=== PATIENT | male | born 1940 | race Caucasian/White ===

== ENCOUNTER 2018-02-07 01:49 | Day surgery (SDC) | payer MEDICARE, OTHER ==
[2018-02-01 11:48] LABS: BASOPHIL % 0.6 % (0.0-0.2); EOSINOPHIL # 0.3 10^3/uL (0.0-0.2); EOSINOPHIL % 3.9 % (0.0-5.0); HEMOGLOBIN 12.9 g/dL (13.9-16.3); LYMPHOCYTES # 2.1 10^3/uL (1.0-4.8); MEAN CELL HGB 32.8 pg (26-34); MEAN CELL HGB CONCENTRATION 32.5 g/dL (33-37); MEAN PLATELET VOLUME 10.8 fL (7.8-11.0); MONOCYTES # 0.7 10^3/uL (0.3-0.8); MONOCYTES % 10.6 % (5.0-12.0); NEUTROPHIL # 3.7 10^3/uL (1.8-7.7); NEUTROPHILS % 53.8 % (41.0-85.0); RED CELL DISTRIBUTION WIDTH 14.2 % (11.5-14.5); WHITE BLOOD CELL 6.9 10^3/uL (4.5-11.0)
[2018-02-01 12:03] LABS: CALCIUM 9.2 mg/dL (8.4-10.5); CARBON DIOXIDE 23.6 mmol/L (20.0-32)
[~2018-02-07] VITALS: Ht 188 cm; Wt 118.4 kg
[~2018-02-07 01:49] MED LIST: ALLO300T PO; ASPI81TA61 PO; BISO5TAB2 PO; CEFP200T PO; DILT120T3 PO; DOCU100T6 PO; FENO160T PO; FINA5TAB4 PO; FLUC100T4 PO; FLUT9.9S NS; GABA100C7 PO; GLIP5TAB PO; HYDR25TA9 PO; LOSA50TA6 PO; MAGN400C PO; METF500T5 PO; NAPR220T70 PO; NS 1000ML 1,000 ML IV SCH; OMEG500C PO; POTA10CA PO; PRAV80TA2 PO; PRIM250T PO; PSYL0.527 PO; SALI10002 MM; SENN1TAB68 PO; TAMS0.4C2 PO; TOPI50TA8 PO; [UNRECOGNIZED DRUG - CODE] PO
[2018-02-07] MEDS ORDERED: NS 1000ML 1,000 ML ONE (05:32)
[2018-02-07] MEDS ORDERED: LEVAQUIN 100 ML IV ONE (05:32)
[2018-02-07] MEDS ORDERED: DECADRON ONE (06:38)
[2018-02-07] MEDS ORDERED: ZOFRAN ONE (06:38)
[2018-02-07] MEDS ORDERED: SUBLIMAZE ONE (06:38)
[2018-02-07] MEDS ORDERED: DIPRIVAN IV ONE (06:38)
[2018-02-07] MEDS ORDERED: LIDOCAINE 2% VIAL ONE (06:39)
[2018-02-07 06:51] VITALS: BP 179/86
[2018-02-07] MEDS ORDERED: NS 3000ML IRR IR ONE (07:28)
[2018-02-07] MEDS ORDERED: SODIUM CHLORIDE IR ONE (07:28)
[2018-02-07 08:08] VITALS: BP 153/82
[2018-02-07 08:23] VITALS: BP 154/71
[2018-02-07] MEDS ORDERED: ZOFRAN IV PRN (08:30)
[2018-02-07] MEDS ORDERED: NORCO 7.5MG PO PRN (08:30)
[2018-02-07] MEDS ORDERED: LACTATED RINGERS 1,000 ML IV SCH (08:30)
[2018-02-07] MEDS ORDERED: SUBLIMAZE IV PRN (08:30)
[2018-02-07] MEDS ORDERED: TAMS0.4C2 PO (08:35)
[2018-02-07] MEDS ORDERED: CIPR500T3 PO (08:35)
[2018-02-07 08:38] VITALS: BP 159/98
[2018-02-07 08:54] VITALS: BP 161/88
--- NOTE | 2018-02-07 09:20 | OPH ---
DATE OF SURGERY: 02/07/2018 PREOPERATIVE DIAGNOSES: Hematuria, prostatic hyperplasia. FINAL DIAGNOSIS: Obstructive prostatic hyperplasia. PROCEDURES: Cystoscopy with urethral dilatation. DESCRIPTION OF PROCEDURE: The patient was brought to the cystoscopy room and was put in supine position on the cystoscopy table. After the patient was given an IV sedation, the patient was placed in the lithotomy position. The genitalia was then prepped and draped aseptically in the usual manner. With the use of 17-Mauritanian cystoscope with the 30-degree angle lens, the posterior urethra was visualized. Verumontanum was identified. There was a marked obstructive prostatic hyperplasia, which was hemorrhagic the bladder was then inspected with the right angle lens and there was no evidence of tumor, no calculi, no ulcerations seen. After this was done, the bladder was emptied with fluid. Instrument was removed and a ureteral dilatation with curved sounds up to 24 Mauritanian was performed. After that, the patient was then awakened, was transferred to the recovery room in stable condition. Procedure was terminated. Milind Randle MD DR: FLETCHER/tana JOB# [id number]
[2018-02-07] MEDS ORDERED: TYLENOL PO STA (10:06)
== END 2018-02-07 09:02 | disposition home or self-care (01) | DRG 726 ==
LOC: SURG 01:49
PROVIDERS: ATTEND Urology
DX: N40.1 Benign prostatic hyperplasia with lower urinary tract symptoms (principal); N13.8 Other obstructive and reflux uropathy; E11.9 Type 2 diabetes mellitus without complications; I10 Essential (primary) hypertension; E78.00 Pure hypercholesterolemia, unspecified; G20 Parkinson's disease; I25.10 Atherosclerotic heart disease of native coronary artery without angina pectoris; E66.9 Obesity, unspecified; Z98.890 Other specified postprocedural states; Z79.899 Other long term (current) drug therapy; Z68.33 Body mass index [BMI] 33.0-33.9, adult; Z87.891 Personal history of nicotine dependence
CPT/HCPCS: 36415; 52281; 80048; 82948 ×2; 85025; 85610; 85730; J1100; J1956; J2001; J2405; J3010; J3490; J7030 ×3

== ENCOUNTER 2018-02-07 14:00 | Inpatient (IN) | payer MEDICARE, OTHER ==
[~2018-02-07] VITALS: Ht 188 cm; Wt 118.4 kg
[~2018-02-07 14:00] MED LIST changes: +CIPR500T3 PO; -NS 1000ML 1,000 ML IV SCH
[2018-02-15] MEDS ORDERED: NS 1000ML 1,000 ML IV SCH (09:00)
[2018-03-27 12:27] LABS: BASOPHIL % 0.6 % (0.0-0.2); EOSINOPHIL # 0.2 10^3/uL (0.0-0.2); EOSINOPHIL % 3.3 % (0.0-5.0); HEMOGLOBIN 13.1 g/dL (13.9-16.3); LYMPHOCYTES # 1.9 10^3/uL (1.0-4.8); MEAN CELL HGB 32.7 pg (26-34); MEAN CELL HGB CONCENTRATION 31.6 g/dL (33-37); MEAN CORP VOLUME 103.5 fL (78-100); MEAN PLATELET VOLUME 11.7 fL (7.8-11.0); MONOCYTES # 0.6 10^3/uL (0.3-0.8); MONOCYTES % 8.3 % (5.0-12.0); NEUTROPHIL # 3.9 10^3/uL (1.8-7.7); NEUTROPHILS % 59.8 % (41.0-85.0); RED CELL DISTRIBUTION WIDTH 14.9 % (11.5-14.5); WHITE BLOOD CELL 6.6 10^3/uL (4.5-11.0)
[2018-03-27 12:42] LABS: CALCIUM 9.3 mg/dL (8.4-10.5); CARBON DIOXIDE 23.3 mmol/L (20.0-32)
[2018-03-28] VITALS (9 sets, daily range): BP systolic 121–164; BP diastolic 61–84
[2018-03-28] MEDS ORDERED: LEVAQUIN 100 ML IV ONE (05:14)
[2018-03-28] MEDS ORDERED: DECADRON ONE (06:55)
[2018-03-28] MEDS ORDERED: VERSED ONE (06:56)
[2018-03-28] MEDS ORDERED: ZOFRAN ONE (06:56)
[2018-03-28] MEDS ORDERED: KETAMINE HCL-Non-Preferred ONE (06:57)
[2018-03-28] MEDS ORDERED: SUBLIMAZE ONE (06:58)
[2018-03-28] MEDS ORDERED: LIDOCAINE 2% VIAL ONE (06:58)
[2018-03-28] MEDS ORDERED: DIPRIVAN IV ONE (06:58)
[2018-03-28] MEDS: NS 1000ML 1,000 ML IV SCH (07:18)
[2018-03-28] MEDS ORDERED: AMINOACETIC ACID IR ONE ×3 (07:32→08:52)
[2018-03-28] MEDS ORDERED: SODIUM CHLORIDE IR ONE ×2 (07:32→10:01)
[2018-03-28] MEDS ORDERED: DEMEROL IV PRN (09:30)
[2018-03-28] MEDS ORDERED: ULTRAM PO PRN (09:30)
[2018-03-28] MEDS ORDERED: ZOFRAN IV PRN (09:30)
[2018-03-28] MEDS ORDERED: PHENERGAN IV PRN ×2 (09:30)
[2018-03-28] MEDS ORDERED: SUBLIMAZE IV PRN (09:30)
--- NOTE | 2018-03-28 09:47 | NUR ---
RECEIVED PATIENT PATIENT ARRIVED VIA BED ACCOMPANIED BY Anthony DENT RN AND Yanna MEJIA RN. REPORT RECEIVED FROM Anthony DENT RN. BEDSIDE MONITORS APPLIED TO PATIENT. V/S STABLE. PATIENT DENIES PAIN OR DISCOMFORT AT THIS TIME. TEACHING PROVIDED REGIONAL LOSS PREVENTION MANAGER LIGHT USE WITH UNDERSTANDING VOICED. CBI PATENT AND RUNNING WITH LIGHT RED OUTPUT. 20G IV TO RIGHT WRIST PATENT WITH NS AT 100ML/HR RUNNING. BED IN LOW LOCKED POSITION WITH SIDE RAILS X2. CALL LIGHT AND BEDSIDE TABLE WITHIN REACH.
--- NOTE | 2018-03-28 10:50 | NUR ---
DISCHARGE PLAN CM VISITED WITH PATIENT REGARDING DISCHARGE PLAN AND NEEDS. PATIENT LIVES AT HOME ALONE. HE HAS 24 HOUR CARE WITH A PROVIDER THROUGH [facility] DURING THE DAY AND HIS GRANDSONS AT NIGHT. HE IS WHEELCHAIR BOUND. PATIENT STATES HE WANTS [facility] FOR PHYSICAL THERAPY BECAUSE HE HAS HAD THEM BEFORE AND HE GOT A LOT STRONGER AT THAT TIME. CHOICE LETTER PRESENTED, SIGNED, AND PLACED IN PATIENT'S CHART. NORIS JEWELL, SECONDARY TEACHER WITH [facility] NOTIFIED OF REFERRAL AND CLINICAL INFORMATION WAS GIVEN. DISCHARGE GOAL IS TO DISCHARGE HOME WITH HIS CAREGIVERS AND [facility]. CM DEPT WILL CONTINUE TO MONITOR DISCHARGE NEEDS.
[2018-03-28] MEDS ORDERED: [UNRECOGNIZED DRUG - OTHER] IR ONE ×3 (13:12→22:18)
--- NOTE | 2018-03-28 13:18 | OPH ---
DATE OF SURGERY: 03/28/2018 PREOPERATIVE DIAGNOSIS: Obstructive prostatic hyperplasia regrowth. FINAL DIAGNOSIS: Obstructive prostatic hyperplasia regrowth. PROCEDURES: TUR of the prostate, regrowth. DESCRIPTION OF PROCEDURE: The patient was brought to the cystoscopy room and was put in a sitting position and a low spinal anesthesia was done. After this was performed, the patient was put back in supine position for several minutes and then after that it was placed in the lithotomy position on the cystoscopy table. The genitalia was then prepped and draped aseptically in the usual manner. First, the urethra was dilated with curved sound up to the 26-Japanese and then a 26-Japanese resectoscope sheath was inserted per urethra up to the bladder. With the use of the right angle lens and with daniela resectoscope, the posterior urethra was visualized. Verumontanum was identified and there was a bilateral lobe prostatic hyperplasia regrowth. The rest of the bladder was inspected. There was no tumor, no calculi, no ulcerations seen. Transurethral resection of prostate was then started at the floor near the bladder neck and this was taken up to proximal to the veru_ and the lateral lobes were resected next followed by the roof. After adequate resection of the prostatic hyperplasia and after adequate hemostasis, all tissue tips were then evacuated from the bladder. Bladder was then irrigated. Return flow was clear. Instrument was removed and a Joyce catheter was inserted. The patient was then transferred to the recovery room in stable condition. Milind Randle MD DR: FLETCHER/tana JOB# [id number] [place]
[2018-03-28] MEDS: LACTATED RINGERS 1,000 ML IV SCH ×2 (14:16→19:30)
--- NOTE | 2018-03-28 14:29 | NUR ---
RAISED BUMP ON THE LEFT MEDIAL UPPER ANKLE WAS FOUND UPON ASSESSMENT. PATIENT STATES HE HIT THE AREA ON A PIECE OF METAL ON HIS WHEELCHAIR AND THAT IS WHAT CAUSED THE BUMP AND THAT IT HAD BEEN THERE FOR SEVERAL WEEKS. PATIENT STATES THE BUMP IS SORE TO THE TOUCH. BESSY JARRETT RN, WAS CALLED FOR A WOUND CONSULT. BESSY ASSESSED WOUND AND FOUND THE AREA TO BE WARM, AND THAT SHE BELIEVED THE AREA MIGHT NEED TO BE DRAINED. SHE SAID TO CALL DR HYMAN TO INFORM HIM OF THE BUMP. DR HYMAN WAS CALLED VIA AND TOLD OF THE AREA AND ASKED WHAT ACTION HE WANTED TAKEN FOR THE AREA. HE STATED THAT HE WOULD COME IN HIMSELF AND ASSESS THE AREA. PICTURES TAKEN.
--- NOTE | 2018-03-28 19:31 | NUR ---
REPORT REPORT GIVEN TO LATHE WINDER.
[2018-03-28] MEDS: NORCO 7.5MG PO PRN (23:27)
[2018-03-29 01:05] VITALS: BP 137/67
[2018-03-29 05:08] LABS: MEAN CELL HGB 32.6 pg (26-34); MEAN CORP VOLUME 101.9 fL (78-100); RED CELL DISTRIBUTION WIDTH 14.5 % (11.5-14.5); WHITE BLOOD CELL 10.7 10^3/uL (4.5-11.0)
[2018-03-29 05:22] LABS: CARBON DIOXIDE 22.1 mmol/L (20.0-32)
[2018-03-29] MEDS: LACTATED RINGERS 1,000 ML IV SCH ×2 (05:30→14:45)
[2018-03-29 06:17] VITALS: BP 130/73
--- NOTE | 2018-03-29 07:00 | NUR ---
REPORT RECEIVED REPORT FROM BIBI BIANCHI. ASSUMED CARE FOR PATIENT AT THIS TIME.
[2018-03-29] MEDS: NS 1000ML 1,000 ML IV SCH (08:15)
--- NOTE | 2018-03-29 08:20 | PNH ---
DATE: 03/29/2018 SUBJECTIVE: Postop day #1. The patient is afebrile. Vital signs are stable. Urine is clear. We will discontinue the CBI and discontinue the IV and change to Hep-Lock. The patient is doing well and we will observe further. Milind Randle MD DR: FLETCHER/tana JOB# [id number]
[2018-03-29 08:27] VITALS: BP 135/75
[2018-03-29] MEDS ORDERED: WATER ONE ×2 (09:48→23:00)
[2018-03-29 11:58] VITALS: BP 137/73
--- NOTE | 2018-03-29 15:25 | NUR ---
SHOWER PATIENT DECLINED SHOWER AND LINEN CHANGE AT THIS TIME.
[2018-03-29] MEDS: NORCO 7.5MG PO PRN (15:30)
[2018-03-29 15:34] VITALS: BP 144/71
--- NOTE | 2018-03-29 20:24 | NUR ---
Pt transferred to bathroom x2 assist using wheelchair, pt tolerated activity fair. Unable to have BM, transferred back to bed. Sonia-care performed, repositioned for comfort.
[2018-03-29 21:19] VITALS: BP 130/60
[2018-03-30] VITALS: BP 135/75
[2018-03-30] MEDS: NORCO 7.5MG PO PRN (01:17)
[2018-03-30] MEDS: LACTATED RINGERS 1,000 ML IV SCH ×2 (01:30→11:30)
--- NOTE | 2018-03-30 06:45 | NUR ---
REPORT RECEIVED REPORT, ASSUMED CARE FOR PATIENT AT THIS TIME.
[2018-03-30] MEDS: NS 1000ML 1,000 ML IV SCH (07:00)
[2018-03-30] MEDS ORDERED: FLAV100T PO (09:35)
[2018-03-30] MEDS ORDERED: CIPR500T86 PO (09:35)
[2018-03-30] MEDS ORDERED: PHEN-406 PO (09:35)
[2018-03-30 11:41] VITALS: BP 137/82
--- NOTE | 2018-03-30 13:25 | NUR ---
DISCHARGE PATIENT BEING DISCHARGED HOME AT THIS TIME IN STABLE CONDITION. PATIENT VOIDED WITHOUT DIFFICULTY. EDUCATED PATIENT ON FOLLOW-UP APPOINTMENT AND NEW PRESCRIPTIONS. PATIENT VOICED UNDERSTANDING. PATIENT IS GOING HOME WITH [facility] TO FOLLOW. DENIES NEEDING ADDITIONAL RESOURCES AT THIS TIME. RELINQUISHED CARE FOR PATIENT.
[2018-03-30 14:15] VITALS: BP 137/82
--- NOTE | 2018-03-31 05:57 | DSH ---
DATE OF DISCHARGE: 03/30/2018 This is a 77-year-old white male who was admitted initially in the hospital because of difficulty in voiding. Recent cystoscopy revealed a regrowth obstructive prostatic hyperplasia. The patient would be scheduled for TUR of the prostate. Pertinent findings is an abdomen soft, no organomegaly. Bladder not palpable. Rectal exam: Prostate is 2+, firm, nontender. LABORATORY DATA: CBC, electrolytes, BUN, creatinine within normal range. COURSE IN HOSPITAL: The patient underwent TUR of the prostate regrowth under spinal anesthesia. There were no operative complications noted. Postoperatively did well and today is postop day #2. The urine still remains clear and Joyce catheter will be removed and will be discharged this afternoon and will be followed up in the office. Milind Randle MD DR: FLETCHER/tana JOB# [id number]
== END 2018-03-30 13:46 | disposition home health service (06) | DRG 713 ==
LOC: MS 03-28 00:09
PROVIDERS: ADMIT Urology; ATTEND Urology
PROC: 0VB08ZZ Excision of Prostate, Via Natural or Artificial Opening Endoscopic (ICD-10-PCS; principal; 2018-03-28 08:01)
DX: N40.1 Benign prostatic hyperplasia with lower urinary tract symptoms (principal); N13.8 Other obstructive and reflux uropathy; I10 Essential (primary) hypertension; E11.9 Type 2 diabetes mellitus without complications; Z79.899 Other long term (current) drug therapy
CPT/HCPCS: 36415; 80048; 80051; 82948; 85025; 85027; 85610; 85730; 88305; J1100; J1956; J2001; J2175; J2250; J2405; J2550; J3010; J3490; J7030; J7120

== ENCOUNTER 2018-05-02 13:39 | Emergency (ER) | payer MEDICARE, OTHER ==
[~2018-05-02] VITALS: Ht 190.5 cm; Wt 117.9 kg
[~2018-05-02 13:39] MED LIST changes: +CIPR500T86 PO; +FLAV100T PO; +PHEN-406 PO
[2018-05-02 13:54] VITALS: BP 133/80
--- NOTE | 2018-05-02 14:21 | PCM.EKG ---
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
[2018-05-02 14:37] LABS: BASOPHIL % 0.2 % (0.0-0.2); EOSINOPHIL # 0.2 10^3/uL (0.0-0.2); EOSINOPHIL % 2.5 % (0.0-5.0); HEMOGLOBIN 12.9 g/dL (13.9-16.3); LYMPHOCYTES # 1.2 10^3/uL (1.0-4.8); LYMPHOCYTES % 14.1 % (24.0-44.0); MEAN CELL HGB 32.5 pg (26-34); MEAN CELL HGB CONCENTRATION 32.2 g/dL (33-37); MEAN PLATELET VOLUME 11.3 fL (7.8-11.0); MONOCYTES # 0.8 10^3/uL (0.3-0.8); MONOCYTES % 9.4 % (5.0-12.0); NEUTROPHIL # 6.2 10^3/uL (1.8-7.7); NEUTROPHILS % 73.7 % (41.0-85.0); RED CELL DISTRIBUTION WIDTH 14.9 % (11.5-14.5); WHITE BLOOD CELL 8.4 10^3/uL (4.5-11.0)
[2018-05-02 14:38] LABS: ABG PCO2 38.5 mmHg (35.0-45.0); ABG PH 7.406 (7.350-7.450); BE(B) -0.8 mmol/L (-2.0-2.0); HCO3act 23.6 mmol/L (22.0-26.0); pO2 76.8 mmHg (75.0-100.0)
--- NOTE | 2018-05-02 14:40 | ER.PDOC ---
General Chief Complaint: General Complaint Stated Complaint: WEAKNESS,DIFF BREATHING Time seen by MD: 14:37 Source: patient Exam Limitations: no limitations History of Present Illness Initial Comments Difficulty breathing and weakness for 2 weeks. He has a cough and is taking Levaquin given by his PCP. He lost his recently and had remained depressed since then. Severity: moderate Prior Episodes/Possible Cause: no prior episodes Associated Symptoms: cough, weakness Allergies: Coded Allergies: No Known Allergies (Unverified , 08/05/14) Home Meds Active Scripts Phenazopyridine HCl (Pyridium) 200 Mg Tablet, 200 MG PO TID, #21 Prov:GUTIERREZ HYMAN MD 03/30/18 Flavoxate Hcl (FLAVOXATE HCL) 100 Mg Tablet, 100 MG PO TID, #21 Prov:GUTIERREZ HYMAN MD 03/30/18 Ciprofloxacin Hcl (CIPRO) 500 Mg Tablet, 500 MG PO BID, #20 Prov:GUTIERREZ HYMAN MD 03/30/18 Reported Medications Tamsulosin Hcl (TAMSULOSIN HCL) 0.4 Mg Cap.er.24h, 0.4 MG PO DAILY24, #30 02/07/18 Ciprofloxacin Hcl (CIPROFLOXACIN HCL) 500 Mg Tablet, 1 TAB PO BID, #14 TAB 02/07/18 Psyllium Husk (FIBER) 0.52 Gm Capsule, 0.52 GM PO DAILY24, CAPSULE 02/02/18 Sennosides/Docusate Sodium (STOOL SOFTENER TABLET) 1 Each Tablet, 1 EACH PO DAILY24, TABLET 02/02/18 Magnesium Oxide (MAGNESIUM) 400 Mg Capsule, 250 MG PO DAILY24, CAPSULE 02/02/18 Naproxen Sodium (ALEVE) 220 Mg Tablet, 2 TAB PO BID, TABLET 02/02/18 Cyanocobalamin (Vitamin B-12) (B-12) 1,000 Mcg Tablet.er, 1000 MCG PO DAILY24 02/02/18 Gabapentin (GABAPENTIN) 100 Mg Capsule, 1 CAP PO TID, #90 CAP 2 Refills 02/02/18 Potassium Chloride (POTASSIUM CHLORIDE) 10 Meq Capsule.er, 1 CAP PO DAILY, #90 CAP 3 Refills 12/01/15 Metformin Hcl (METFORMIN HCL) 500 Mg Tablet, 1 TAB PO DAILY24, #180 TAB 3 Refills 12/01/15 Fluticasone Propionate (Flonase Allergy Relief) 9.9 Ml [place].susp, 9.9 ML NS DAILY 12/01/15 Coral-3 Fatty Acids (FISH OIL) 500 Mg Capsule.dr, 1400 MG PO DAILY24 08/05/14 Aspirin (Children's Aspirin) 81 Mg Tab.chew, 81 MG PO DAILY, TAB.CHEW 08/05/14 Allopurinol (ALLOPURINOL) 300 Mg Tablet, 300 MG PO DAILY, TABLET 08/05/14 Losartan Potassium (LOSARTAN POTASSIUM) 50 Mg Tablet, 50 MG PO BID, TABLET 08/05/14 Pravastatin Sodium (PRAVASTATIN SODIUM) 80 Mg Tablet, 80 MG PO HS, TABLET 08/05/14 Topiramate (TOPIRAMATE) 50 Mg Tablet, 50 MG PO TID, TABLET 08/05/14 Primidone (PRIMIDONE) 250 Mg Tablet, 250 MG PO TID, TABLET 08/05/14 Fenofibrate (FENOFIBRATE) 160 Mg Tablet, 160 MG PO DAILY, TABLET 08/05/14 Past Medical History Medical History: cardiac problems, congestive heart failure, diabetes, renal disease Surgical History: no surgical history Social History Smoking: non-smoker Alcohol Use: none Drug Use: none Review of Systems Constitutional: weakness EENTM: no symptoms reported Respiratory: no symptoms reported, see HPI Cardiovascular: no symptoms reported Gastrointestinal: no symptoms reported Genitourinary: no symptoms reported All Other Systems: Reviewed and Negative Physical Exam General Appearance: No Apparent Distress, WD/WN HEENT: PERRL/EOMI Neck: Non-Tender, Full Range of Motion, Supple, Normal Inspection Respiratory: chest non-tender, lungs clear, normal breath sounds, no respiratory distress, no accessory muscle use Cardiovascular: Normal Peripheral Pulses, Regular Rate, Rhythm, No Edema, No Gallop, No JVD, No Murmur Gastrointestinal: Normal Bowel Sounds, No Organomegaly, No Pulsatile Mass, Non Tender, Soft Extremities: Normal Range of Motion, Non-Tender, Normal Inspection, No Pedal Edema, No Calf Tenderness, Normal Capillary Refill Neurologic/Psychiatric: 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, No Motor/Sensory Deficits, Alert, Oriented x 3, Depressed Affect Skin: Normal Color, Warm/Dry Results/Orders Results/Orders Laboratory Tests Test 05/02/18 14:23 05/02/18 14:30 White Blood Count 8.4 10^3/uL (4.5-11.0) Red Blood Count 3.97 10^6/uL (4.50-5.90) Hemoglobin 12.9 g/dL (13.9-16.3) Hematocrit 40.1 % (37.0-53.0) Mean Corpuscular Volume 101.0 fL (78-100) Mean Corpuscular Hemoglobin 32.5 pg (26-34) Mean Corpuscular Hemoglobin Concent 32.2 g/dL (33-37) Red Cell Distribution Width 14.9 % (11.5-14.5) Platelet Count 216 10^3/uL (150-400) Mean Platelet Volume 11.3 fL (7.8-11.0) Neutrophils (%) (Auto) 73.7 % (41.0-85.0) Lymphocytes (%) (Auto) 14.1 % (24.0-44.0) Monocytes (%) (Auto) 9.4 % (5.0-12.0) Neutrophils # (Auto) 6.2 10^3/uL (1.8-7.7) Lymphocytes # (Auto) 1.2 10^3/uL (1.0-4.8) Monocytes # (Auto) 0.8 10^3/uL (0.3-0.8) Absolute Immature Granulocyte (auto 0.01 10^3 u/L (0-2) Eosinophils % 2.5 % (0.0-5.0) Basophils % 0.2 % (0.0-0.2) Basophils # 0.0 10^3/uL (0.0-0.1) Eosinophil Count 0.2 10^3/uL (0.0-0.2) D-Dimer 0.61 mg/L (0.19-0.49) Sodium Level 144 mmol/L (132-145) Potassium Level 4.3 mmol/L (3.6-5.2) Chloride Level 107.0 mmol/L (96-109) Carbon Dioxide Level 25.8 mmol/L (20.0-32) Anion Gap 15.5 Blood Urea Nitrogen 34 mg/dL (7-18) Creatinine 1.59 mg/dL (0.59-1.40) Estimated GFR () 51.1 (>/=60) BUN/Creatinine Ratio 21.0 Glucose Level 123 mg/dL (70-110) Calcium Level 9.0 mg/dL (8.4-10.5) Total Bilirubin 0.3 mg/dL (0.2-1.0) Aspartate Amino Transf (AST/SGOT) 85 U/L (0-35) Alanine Aminotransferase (ALT/SGPT) 49 U/L (12-78) Alkaline Phosphatase 57 U/L (50-136) Total Creatine Kinase 73 U/L (39-308) Creatine Kinase MB 0.6 ng/mL (0.5-3.6) Troponin I < 0.02 ng/mL (0.00-0.05) Pro-B-Type Natriuretic Peptide 195 pg/mL (0-450) Total Protein 7.3 g/dL (6.4-8.2) Albumin 2.9 g/dL (3.4-5.0) Globulin 4.4 Percent Immature Gran (Cell Imm) 0.10 % (0.00-0.50) Blood Gas Sample Site LEFT RADIAL ARTERY Blood Gas pH 7.406 (7.350-7.450) Blood Gas PCO2 38.5 mmHg (35.0-45.0) Blood Gas PO2 76.8 mmHg (75.0-100.0) Blood Gas HCO3 23.6 mmol/L (22.0-26.0) Blood Gas Base Excess -0.8 mmol/L (-2.0-2.0) Frank Test POSITIVE Arterial Blood Oxygen Saturation 95.2 % (95-) Deoxyhemoglobin 4.7 % (0.2-0.6) Carboxyhemoglobin 1.2 % (0.5-1.5) Methemoglobin 0.4 % (0.2-0.6) Total Hemoglobin 13.4 % (13.5-17.5) Total Oxygen Concentration 17.7 % (13.5-17.5) Lactic Acid (Blood Gas) 2.4 MMOL/L (0.5-1.0) Blood Gas Temperature 37 Oxygen Delivery Method (LAB) RA FiO2 21 % (20-101) Bicarbonate 24.8 mmol/L (23-27) Progress Progress Gave option of calling social sciences chair but patient declined. EKG/XRAY/CT/US EKG: NSR XRAY: chest (No active disease) Course Sepsis Screening Results: Posi: POSITIVE SEPSIS RISK Sepsis Qualifier/Stage: NO DEFINITE RISK Vitals & review Data Vital Sign - Last 24 Hours 03/30/18 05/02/18 05/02/18 05/02/18 14:15 13:47 13:47 13:54 Temp 97.7 97.7 97.7 97.7 97.7 97.7 Pulse 70 79 79 79 Resp 16 16 16 B/P (MAP) 133/80 (97) Pulse Ox 92 92 O2 Delivery Room Air Room Air Laboratory Tests Test 05/02/18 14:23 05/02/18 14:30 White Blood Count 8.4 10^3/uL Red Blood Count 3.97 10^6/uL Hemoglobin 12.9 g/dL Hematocrit 40.1 % Mean Corpuscular Volume 101.0 fL Mean Corpuscular Hemoglobin 32.5 pg Mean Corpuscular Hemoglobin Concent 32.2 g/dL Red Cell Distribution Width 14.9 % Platelet Count 216 10^3/uL Mean Platelet Volume 11.3 fL Neutrophils (%) (Auto) 73.7 % Lymphocytes (%) (Auto) 14.1 % Monocytes (%) (Auto) 9.4 % Neutrophils # (Auto) 6.2 10^3/uL Lymphocytes # (Auto) 1.2 10^3/uL Monocytes # (Auto) 0.8 10^3/uL Absolute Immature Granulocyte (auto 0.01 10^3 u/L Eosinophils % 2.5 % Basophils % 0.2 % Basophils # 0.0 10^3/uL Eosinophil Count 0.2 10^3/uL D-Dimer 0.61 mg/L Sodium Level 144 mmol/L Potassium Level 4.3 mmol/L Chloride Level 107.0 mmol/L Carbon Dioxide Level 25.8 mmol/L Anion Gap 15.5 Blood Urea Nitrogen 34 mg/dL Creatinine 1.59 mg/dL Estimated GFR () 51.1 BUN/Creatinine Ratio 21.0 Glucose Level 123 mg/dL Calcium Level 9.0 mg/dL Total Bilirubin 0.3 mg/dL Aspartate Amino Transf (AST/SGOT) 85 U/L Alanine Aminotransferase (ALT/SGPT) 49 U/L Alkaline Phosphatase 57 U/L Total Creatine Kinase 73 U/L Creatine Kinase MB 0.6 ng/mL Troponin I < 0.02 ng/mL Pro-B-Type Natriuretic Peptide 195 pg/mL Total Protein 7.3 g/dL Albumin 2.9 g/dL Globulin 4.4 Percent Immature Gran (Cell Imm) 0.10 % Blood Gas Sample Site LEFT RADIAL ARTERY Blood Gas pH 7.406 Blood Gas PCO2 38.5 mmHg Blood Gas PO2 76.8 mmHg Blood Gas HCO3 23.6 mmol/L Blood Gas Base Excess -0.8 mmol/L Frank Test POSITIVE Arterial Blood Oxygen Saturation 95.2 % Deoxyhemoglobin 4.7 % Carboxyhemoglobin 1.2 % Methemoglobin 0.4 % Total Hemoglobin 13.4 % Total Oxygen Concentration 17.7 % Lactic Acid (Blood Gas) 2.4 MMOL/L Blood Gas Temperature 37 Oxygen Delivery Method (LAB) RA FiO2 21 % Bicarbonate 24.8 mmol/L Departure Time of Disposition: 15:18 Disposition: 01 HOME, SELF-CARE Impression: Primary Impression: URI, acute Additional Impressions: Depression Grieving Weakness generalized Condition: Stable Referrals: DAVE MUSA MD (PCP) PRIMARY CARE PROVIDER Additional Instructions: Continue home medications F/U with your PCP in 2-3 days Duration or Time Spent with Pa: 90 mins Problem Qualifiers Additional Impressions: Depression Depression Type: unspecified Qualified Codes: F32.9 - Major depressive disorder, single episode, unspecified MARTHA CORNELL MD May 02, 2018 14:40
--- NOTE | 2018-05-02 14:43 | DIREP ---
PROCEDURE:CHEST 1 VIEW COMPARISON:[facility], CR, XRAY CHEST SINGLE VW, 10/20/2015, 04:53 AM. [facility], CT, CT CHEST W/O, 10/20/2015, 01:33 PM. INDICATIONS:Dyspnea FINDINGS: LUNGS/PLEURA:No significant pulmonary parenchymal abnormalities. No effusions. VASCULATURE:Normal. Unremarkable pulmonary vasculature. CARDIAC:Normal. No cardiac silhouette abnormality or cardiomegaly. MEDIASTINUM:Normal. No visible mass or adenopathy. BONES:Normal. No fracture or visible bony lesion. OTHER:Negative. CONCLUSION: 1. No active cardiopulmonary disease is demonstrated. Dictated by: Fabio Shane M.D. on 05/02/2018 at 02:41 PM
[2018-05-02 15:07] LABS: ALANINE AMINOTRANSFERASE(ML) 49 U/L (12-78); ALKALINE PHOSPHATASE 57 U/L (50-136); ASPARTATE AMINO TRANSFERASE 85 U/L (0-35); CARBON DIOXIDE 25.8 mmol/L (20.0-32); GLUCOSE 123 mg/dL (70-110)
[2018-05-02 15:40] VITALS: BP 112/67
[2018-05-02 15:56] VITALS: BP 112/67
== END 2018-05-02 15:45 | disposition home or self-care (01) ==
LOC: EDBD 13:39 → ER 13:39
DX: J06.9 Acute upper respiratory infection, unspecified (principal); F32.9 Major depressive disorder, single episode, unspecified; F43.21 Adjustment disorder with depressed mood; I50.9 Heart failure, unspecified; E11.9 Type 2 diabetes mellitus without complications; N28.9 Disorder of kidney and ureter, unspecified; Z79.82 Long term (current) use of aspirin; Z79.899 Other long term (current) drug therapy; Z79.2 Long term (current) use of antibiotics; Z79.84 Long term (current) use of oral hypoglycemic drugs
CPT/HCPCS: 36415; 36600; 71045; 80053; 82550; 82553; 82803; 83880; 84484; 85025; 85379; 87040; 93005; 99285

== ENCOUNTER 2018-05-23 09:14 | Emergency (ER) | payer MEDICARE, OTHER ==
[~2018-05-23] VITALS: Ht 188 cm; Wt 95.3 kg
--- NOTE | 2018-05-23 09:21 | NUR ---
ARRIVAL PATIENT TO ROOM 5 VIA EMS, EMS STATES PATIENT HAS NO HX OF CVA OR PARKINSON'S. HYPOTENSION IS THE ONLY HX. PATIENT NOT ABLE TO GIVE A CORRECT HISTORY, NIH PERFORMED ON PATIENT, PATIENT POSITIVE STROKE SCALE. PATIENT IN SLOW TO RESPOND AND PUPILS ARE PIN POINT AND SLUGGISH. PATIENT WAS REACHING FOR HIS WHEEL CHAIR AND FELL, TIME UNKNOWN, HE WAS FOUND BY HIS PRIVATE SITTERS IN THE FLOOR, AND THEY CALLED EMS. THIS NURSE CALLED [facility]. PATIENT HAS EXTENSIVE CARDIAC HISTORY, PARKINSON'S, BPH, AND DIABETES. PATIENT FAMILY ON WAY FROM [place]. PATIENT IN ROOM, CONNECTED TO ALL MONITORS, NO S/S OF DISTRESS, ASSESSMENT COMPLETED, MD SAMPSON COMPLETED. IV ESTABLISHED 20G TO THE RIGHT AC.
[2018-05-23 09:24] VITALS: BP 141/64
--- NOTE | 2018-05-23 09:31 | PCM.EKG ---
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
--- NOTE | 2018-05-23 09:33 | ER.PDOC ---
General Chief Complaint: Trauma Stated Complaint: FALL Time seen by MD: 09:30 Source: patient Exam Limitations: no limitations History of Present Illness Initial Comments Hit head S/P fall. Was reaching for his wheelchair when he fell. Where: home Severity: moderate Injuries/Pain Location: head Context: Lost Balance Associated Symptoms: other (generalized weakness) Allergies: Coded Allergies: No Known Allergies (Unverified , 08/05/14) MEDS Active Scripts Phenazopyridine HCl (Pyridium) 200 Mg Tablet, 200 MG PO TID, #21 Prov:GUTIERREZ HYMAN MD 03/30/18 Flavoxate Hcl (FLAVOXATE HCL) 100 Mg Tablet, 100 MG PO TID, #21 Prov:GUTIERREZ HYMAN MD 03/30/18 Ciprofloxacin Hcl (CIPRO) 500 Mg Tablet, 500 MG PO BID, #20 Prov:GUTIERREZ HYMAN MD 03/30/18 Reported Medications Tamsulosin Hcl (TAMSULOSIN HCL) 0.4 Mg Cap.er.24h, 0.4 MG PO DAILY24, #30 02/07/18 Ciprofloxacin Hcl (CIPROFLOXACIN HCL) 500 Mg Tablet, 1 TAB PO BID, #14 TAB 02/07/18 Psyllium Husk (FIBER) 0.52 Gm Capsule, 0.52 GM PO DAILY24, CAPSULE 02/02/18 Sennosides/Docusate Sodium (STOOL SOFTENER TABLET) 1 Each Tablet, 1 EACH PO DAILY24, TABLET 02/02/18 Magnesium Oxide (MAGNESIUM) 400 Mg Capsule, 250 MG PO DAILY24, CAPSULE 02/02/18 Naproxen Sodium (ALEVE) 220 Mg Tablet, 2 TAB PO BID, TABLET 02/02/18 Cyanocobalamin (Vitamin B-12) (B-12) 1,000 Mcg Tablet.er, 1000 MCG PO DAILY24 02/02/18 Gabapentin (GABAPENTIN) 100 Mg Capsule, 1 CAP PO TID, #90 CAP 2 Refills 02/02/18 Potassium Chloride (POTASSIUM CHLORIDE) 10 Meq Capsule.er, 1 CAP PO DAILY, #90 CAP 3 Refills 12/01/15 Metformin Hcl (METFORMIN HCL) 500 Mg Tablet, 1 TAB PO DAILY24, #180 TAB 3 Refills 12/01/15 Fluticasone Propionate (Flonase Allergy Relief) 9.9 Ml [place].susp, 9.9 ML NS DAILY 12/01/15 [place]-3 Fatty Acids (FISH OIL) 500 Mg Capsule.dr, 1400 MG PO DAILY24 08/05/14 Aspirin (Children's Aspirin) 81 Mg Tab.chew, 81 MG PO DAILY, TAB.CHEW 08/05/14 Allopurinol (ALLOPURINOL) 300 Mg Tablet, 300 MG PO DAILY, TABLET 08/05/14 Losartan Potassium (LOSARTAN POTASSIUM) 50 Mg Tablet, 50 MG PO BID, TABLET 08/05/14 Pravastatin Sodium (PRAVASTATIN SODIUM) 80 Mg Tablet, 80 MG PO HS, TABLET 08/05/14 Topiramate (TOPIRAMATE) 50 Mg Tablet, 50 MG PO TID, TABLET 08/05/14 Primidone (PRIMIDONE) 250 Mg Tablet, 250 MG PO TID, TABLET 08/05/14 Fenofibrate (FENOFIBRATE) 160 Mg Tablet, 160 MG PO DAILY, TABLET 08/05/14 Past Medical History Medical History: CVA/TIA/stroke, cardiac problems, congestive heart failure, hypertension Surgical History: no surgical history Social History Smoking: non-smoker Alcohol Use: none Drug Use: none Review of Systems Constitutional: see HPI Respiratory: no symptoms reported Cardiovascular: no symptoms reported Gastrointestinal: no symptoms reported Genitourinary: no symptoms reported Musculoskeletal: no symptoms reported All Other Systems: Reviewed and Negative Physical Exam General Appearance: No Apparent Distress, WD/WN Head: Contusions (frontal face) Ears, Nose, Mouth, Throat: Hearing Grossly Normal, No Evidence of ENT Injury, No Dental Injury Neck: Non-Tender, Normal Alignment, Nexus criteria neg, Normal Inspection Cardiovascular/Respiratory: Regular Rate, Rhythm, No M/R/G, Normal Peripheral Pulses, No JVD, Normal Breath Sounds, No Respiratory Distress Gastrointestinal: Normal Bowel Sounds, No Organomegaly, No Pulsatile Mass, Non Tender, Soft Back: Normal Inspection, No CVA Tenderness, No Vertebral Tenderness Extremities: No Evidence of Injury, Normal Range of Motion, Non-Tender, No Pedal Edema 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, No Motor/Sensory Deficits, Alert, Normal Mood/Affect, Oriented x 3 Skin: Other (sacral decubitus) [place] Coma Score Best Eye Response: (4) Open Spontaneously Best Verbal Response: (5) Oriented Best Motor Response: (6) Obeys Commands Results/Orders Results/Orders Laboratory Tests Test 05/23/18 09:39 White Blood Count 8.8 10^3/uL (4.5-11.0) Red Blood Count 4.15 10^6/uL (4.50-5.90) Hemoglobin 13.4 g/dL (13.9-16.3) Hematocrit 41.7 % (37.0-53.0) Mean Corpuscular Volume 100.5 fL (78-100) Mean Corpuscular Hemoglobin 32.3 pg (26-34) Mean Corpuscular Hemoglobin Concent 32.1 g/dL (33-37) Red Cell Distribution Width 15.6 % (11.5-14.5) Platelet Count 179 10^3/uL (150-400) Mean Platelet Volume 11.5 fL (7.8-11.0) Neutrophils (%) (Auto) 62.4 % (41.0-85.0) Lymphocytes (%) (Auto) 24.5 % (24.0-44.0) Monocytes (%) (Auto) 8.6 % (5.0-12.0) Neutrophils # (Auto) 5.5 10^3/uL (1.8-7.7) Lymphocytes # (Auto) 2.2 10^3/uL (1.0-4.8) Monocytes # (Auto) 0.8 10^3/uL (0.3-0.8) Absolute Immature Granulocyte (auto 0.02 10^3 u/L (0-2) Eosinophils % 4.0 % (0.0-5.0) Basophils % 0.3 % (0.0-0.2) Basophils # 0.0 10^3/uL (0.0-0.1) Eosinophil Count 0.4 10^3/uL (0.0-0.2) Prothrombin Time 12.5 SEC (9.8-11.9) Prothrombin Time INR (Non-Therap) 1.3 Activated Partial Thromboplast Time 25.9 SEC (24.67-30.72) Sodium Level 143 mmol/L (132-145) Potassium Level 4.1 mmol/L (3.6-5.2) Chloride Level 106.0 mmol/L (96-109) Carbon Dioxide Level 25.3 mmol/L (20.0-32) Anion Gap 15.8 Blood Urea Nitrogen 28 mg/dL (7-18) Creatinine 1.47 mg/dL (0.59-1.40) Estimated GFR () 55.8 (>/=60) BUN/Creatinine Ratio 19.0 Glucose Level 117 mg/dL (70-110) Calcium Level 9.3 mg/dL (8.4-10.5) Total Bilirubin 0.5 mg/dL (0.2-1.0) Aspartate Amino Transf (AST/SGOT) 115 U/L (0-35) Alanine Aminotransferase (ALT/SGPT) 61 U/L (12-78) Alkaline Phosphatase 78 U/L (50-136) Total Creatine Kinase 78 U/L (39-308) Creatine Kinase MB 0.8 ng/mL (0.5-3.6) Troponin I < 0.02 ng/mL (0.00-0.05) Total Protein 7.8 g/dL (6.4-8.2) Albumin 3.1 g/dL (3.4-5.0) Globulin 4.7 Percent Immature Gran (Cell Imm) 0.20 % (0.00-0.50) EKG/XRAY/CT/US EKG: NSR XRAY: chest (No active disease) CT Comments: Nothing acute on CT head and C spine Departure Time of Disposition: 10:40 Disposition: 01 HOME, SELF-CARE Impression: Primary Impression: Contusion of head Qualified Codes: S00.93XA - Contusion of unspecified part of head, initial encounter Additional Impression: Fall Qualified Codes: W19.XXXA - Unspecified fall, initial encounter Condition: Stable Referrals: DAVE MUSA MD (PCP) PRIMARY CARE PROVIDER Duration or Time Spent with Pa: 60 mins MARTHA CORNELL MD May 23, 2018 09:33
[2018-05-23 09:42] LABS: BASOPHIL % 0.3 % (0.0-0.2); EOSINOPHIL # 0.4 10^3/uL (0.0-0.2); HEMOGLOBIN 13.4 g/dL (13.9-16.3); LYMPHOCYTES # 2.2 10^3/uL (1.0-4.8); LYMPHOCYTES % 24.5 % (24.0-44.0); MEAN CELL HGB 32.3 pg (26-34); MEAN CELL HGB CONCENTRATION 32.1 g/dL (33-37); MEAN CORP VOLUME 100.5 fL (78-100); MEAN PLATELET VOLUME 11.5 fL (7.8-11.0); MONOCYTES # 0.8 10^3/uL (0.3-0.8); MONOCYTES % 8.6 % (5.0-12.0); NEUTROPHIL # 5.5 10^3/uL (1.8-7.7); NEUTROPHILS % 62.4 % (41.0-85.0); RED CELL DISTRIBUTION WIDTH 15.6 % (11.5-14.5); WHITE BLOOD CELL 8.8 10^3/uL (4.5-11.0)
--- NOTE | 2018-05-23 10:09 | DIREP ---
PROCEDURE:CT HEAD OR BRAIN W/O CONTRAST COMPARISON:[facility], CT, CT-BRAIN WO CONTRAST, 11/19/2012, 08:[address] [facility], CT, CT-BRAIN WO CONTRAST, 10/26/2012, 11:52 PM. INDICATIONS:Pain from falling TECHNIQUE:CT images were created without intravenous contrast. The study was reviewed on brain, subdural and bone windows. FINDINGS: VENTRICLES:Mild to moderate ventriculomegaly. The ventriculomegaly is disproportionate to the dilatation of the sulci, question normal pressure hydrocephalus. The temporal horns are dilated. There is also mild dilatation involving the 3rd and to a lesser extent the 4th ventricle. Mild periventricular white matter change identified. The atrophy appears worse since the last examination of 11/19/2012. CEREBRUM:Normal cerebral morphology with appropriate hendricks white matter differentiation. No acute infarct, bleed or mass lesion is seen. No acute or chronic epidural, subdural or subarachnoid hemorrhage is seen. No edema, midline shift or increased intracranial pressure is seen. No posterior fossa infarcts or mass lesions are seen. No sellar mass lesions are seen. CEREBELLUM:Negative. BRAINSTEM:Negative. BASAL CISTERNS:Negative. HEMORRHAGE:No MASS LESION:No ACUTE INFARCT:No SKULL:Normal. SINUSES:Normal. OTHER:None CONCLUSION:Ventriculomegaly disproportionate to the atrophy, question normal pressure hydrocephalus. Mild periventricular white matter change seen which may be secondary to small vessel disease and old aging. Dictated by: Phillip Becerra MD on 05/23/2018 at 10:05 AM
[2018-05-23 10:13] LABS: ALANINE AMINOTRANSFERASE(ML) 61 U/L (12-78); ALKALINE PHOSPHATASE 78 U/L (50-136); ASPARTATE AMINO TRANSFERASE 115 U/L (0-35); CALCIUM 9.3 mg/dL (8.4-10.5); CARBON DIOXIDE 25.3 mmol/L (20.0-32); GLUCOSE 117 mg/dL (70-110)
--- NOTE | 2018-05-23 10:25 | DIREP ---
PROCEDURE: CT SPINE CERVICAL W/O COMPARISON:None. INDICATIONS:Pain from falling FINDINGS: ALIGNMENT:Cervical lordosis is preserved. VERTEBRAE:No acute fracture of the occipital condyles is seen. No fracture of the odontoid is identified. The anterior and posterior arches of C1 are preserved. The lateral articulation of C1 and C2 is satisfactory. No compression fractures of the vertebral body is seen. No traumatic spondylolisthesis is seen. No fracture of the vertebral body, lamina, pedicles, spinous or transverse processes seen. No facet widening, facet fracture, facet subluxation, jumped facets, locked facets or perched facets are seen. Severe degenerative narrowing with ventral osteophyte formation at C3-4, and to a lesser extent at C4-5 and C5-6. PARASPINAL AREA:No precervical hematoma is seen. OTHER:No additional findings. CERVICAL DISC LEVELS C2-C3:No focal disc. Moderate to severe narrowing of intervertebral foramen on the right side and mild to moderate narrowing on the left. Moderate to severe uncovertebral and facet hypertrophy noted. C3-C4:Severe narrowing of intervertebral foramina bilaterally. Mild central stenosis. No focal disc is seen. Moderate uncovertebral and facet hypertrophy noted. Large ventral osteophytes. C4-C5:Moderate narrowing of intervertebral foramina. Small central osteophyte. No focal disc is seen. Uncovertebral and facet hypertrophy noted. C5-C6:Bilateral narrowing of intervertebral foramina, left more than the right with mild central stenosis. No focal disc is seen. Moderate uncovertebral and facet hypertrophy noted. C6-C7:Mild narrowing of intervertebral foramina bilaterally. No focal disc is seen. No central stenosis. Mild to moderate uncovertebral and facet hypertrophy noted. C7-T1:Level slightly compromised by streak like artifacts from the shoulder. No focal disc. No foraminal or central stenosis. At T1-2 and T2-3, no focal disc or foraminal narrowing is seen. CONCLUSION:No acute fracture or facet subluxation. Ventral osteophytes at C3-4 and to a lesser extent at C4-5 and C5-6. Multilevel narrowing of intervertebral foramen as above. No acute disc herniation, or epidural hematoma is seen. Dictated by: Phillip Becerra MD on 05/23/2018 at 10:15 AM
--- NOTE | 2018-05-23 10:25 | DIREP ---
PROCEDURE:CHEST 1 VIEW COMPARISON:[facility], CR, XRAY CHEST SINGLE VW, 05/02/2018, 02:05 PM. INDICATIONS:Generalized Weakness FINDINGS: LUNGS/PLEURA:No significant pulmonary parenchymal abnormalities. No effusions. VASCULATURE:Normal. Unremarkable pulmonary vasculature. CARDIAC:Mild cardiomegaly. MEDIASTINUM:Atherosclerotic aorta with no visible aneurysm. BONES:Mild scoliosis with mild degenerative disc disease and spondylosis. OTHER:EKG leads overlie the chest. CONCLUSION:No acute cardiopulmonary disease. No change. Dictated by: Mahad Cazares M.D. on 05/23/2018 at 09:23 AM Read in [place]
--- NOTE | 2018-05-23 10:48 | NUR ---
DISPATCH CALLED TO TAKE PATIENT HOME.
--- NOTE | 2018-05-23 10:49 | NUR ---
[facility] CALLED TO NOTIFY ABOUT STAGE TWO ON PATIENT COCCYX.
--- NOTE | 2018-05-23 10:49 | NUR ---
[facility] CALLED [facility] FOR [facility] TO BE DISPATCHED TO ER TO TAKE PT HOME
[2018-05-23 10:50] VITALS: BP 143/81
[2018-05-23 10:54] VITALS: BP 143/81
[2018-05-23] MEDS ORDERED: TYLENOL #3 PO ONE (11:12)
[2018-05-23] MEDS ORDERED: TYLENOL #3 PO STA (11:14)
== END 2018-05-23 11:25 | disposition home or self-care (01) ==
LOC: EDBD 09:14 → ER 09:14
DX: S00.83XA Contusion of other part of head, initial encounter (principal); I11.0 Hypertensive heart disease with heart failure; I50.9 Heart failure, unspecified; Z79.2 Long term (current) use of antibiotics; Z79.84 Long term (current) use of oral hypoglycemic drugs; Z79.899 Other long term (current) drug therapy; Z79.82 Long term (current) use of aspirin; Z86.73 Personal history of transient ischemic attack (TIA), and cerebral infarction without residual deficits; W19.XXXA Unspecified fall, initial encounter; Y93.89 Activity, other specified; Y92.098 Other place in other non-institutional residence as the place of occurrence of the external cause; Y99.8 Other external cause status
CPT/HCPCS: 36415; 70450; 71045; 72125; 80053; 82550; 82553; 84484; 85025; 85610; 85730; 93005; 99285; J3490

== ENCOUNTER 2020-02-20 18:58 | Emergency (ER) | payer MEDICARE, OTHER ==
[~2020-02-20] VITALS: Ht 188 cm; Wt 102.1 kg
[~2020-02-20 18:58] MED LIST changes: -BISO5TAB2 PO; +BISO5TAB8 PO; +LOSA50TA14 PO; -LOSA50TA6 PO; +METF500T17 PO; -METF500T5 PO
[2020-02-20 19:25] VITALS: BP 130/71
[2020-02-20 19:29] VITALS: BP 130/71
--- NOTE | 2020-02-20 19:31 | ER.PDOC ---
General Chief Complaint: Requesting Medical Care Stated Complaint: PAIN IN R LEG Time seen by MD: 19:24 Source: patient Exam Limitations: no limitations History of Present Illness Initial Comments Patient contused RLE on hard surface while operating his scooter. He c/o large hematoma to anterior TibFib region. He is normally unable to ambulate and cannot normally feel his LEs Onset: just prior to arrival Where: home Context: crush Severity: mild Associated Symptoms: unable to bear weight (normally cannot bear weight) Allergies: Coded Allergies: No Known Allergies (Unverified , 08/05/14) Home Meds Active Scripts Phenazopyridine HCl (Pyridium) 200 Mg Tablet, 200 MG PO TID, #21 Prov:GUTIERREZ HYMAN MD 03/30/18 Flavoxate Hcl (FLAVOXATE HCL) 100 Mg Tablet, 100 MG PO TID, #21 Prov:GUTIERREZ HYMAN MD 03/30/18 Ciprofloxacin Hcl (CIPRO) 500 Mg Tablet, 500 MG PO BID, #20 Prov:GUTIERREZ HYMAN MD 03/30/18 Reported Medications Tamsulosin Hcl (TAMSULOSIN HCL) 0.4 Mg Cap.er.24h, 0.4 MG PO DAILY24, #30 02/07/18 Ciprofloxacin Hcl (CIPROFLOXACIN HCL) 500 Mg Tablet, 1 TAB PO BID, #14 TAB 02/07/18 Psyllium Husk (FIBER) 0.52 Gm Capsule, 0.52 GM PO DAILY24, CAPSULE 02/02/18 Sennosides/Docusate Sodium (STOOL SOFTENER TABLET) 1 Each Tablet, 1 EACH PO DAILY24, TABLET 02/02/18 Magnesium Oxide (MAGNESIUM) 400 Mg Capsule, 250 MG PO DAILY24, CAPSULE 02/02/18 Naproxen Sodium (ALEVE) 220 Mg Tablet, 2 TAB PO BID, TABLET 02/02/18 Cyanocobalamin (Vitamin B-12) (B-12) 1,000 Mcg Tablet.er, 1000 MCG PO DAILY24 02/02/18 Gabapentin (GABAPENTIN) 100 Mg Capsule, 1 CAP PO TID, #90 CAP 2 Refills 02/02/18 Potassium Chloride (POTASSIUM CHLORIDE) 10 Meq Capsule.er, 1 CAP PO DAILY, #90 CAP 3 Refills 12/01/15 Metformin Hcl (METFORMIN HCL) 500 Mg Tablet, 1 TAB PO DAILY24, #180 TAB 3 Refills 12/01/15 Fluticasone Propionate (Flonase Allergy Relief) 9.9 Ml [place].susp, 9.9 ML NS DAILY 12/01/15 [place]-3 Fatty Acids (FISH OIL) 500 Mg Capsule.dr, 1400 MG PO DAILY24 08/05/14 Aspirin (Children's Aspirin) 81 Mg Tab.chew, 81 MG PO DAILY, TAB.CHEW 08/05/14 Allopurinol (ALLOPURINOL) 300 Mg Tablet, 300 MG PO DAILY, TABLET 08/05/14 Losartan Potassium (LOSARTAN POTASSIUM) 50 Mg Tablet, 50 MG PO BID, TABLET 08/05/14 Pravastatin Sodium (PRAVASTATIN SODIUM) 80 Mg Tablet, 80 MG PO HS, TABLET 08/05/14 Topiramate (TOPIRAMATE) 50 Mg Tablet, 50 MG PO TID, TABLET 08/05/14 Primidone (PRIMIDONE) 250 Mg Tablet, 250 MG PO TID, TABLET 08/05/14 Fenofibrate (FENOFIBRATE) 160 Mg Tablet, 160 MG PO DAILY, TABLET 08/05/14 Past Medical History Surgical History: no surgical history Social History Drug Use: none Review of Systems Constitutional: no symptoms reported EENTM: no symptoms reported Respiratory: no symptoms reported Cardiovascular: no symptoms reported Musculoskeletal: see HPI Physical Exam General Appearance: Alert, No Apparent Distress 1 - 5 cm hematoma Gait: unable to test gait Neuro/Vasc/Tendon: no vascular compromise Head/ENT: nml inspection Abdomen: non-tender Results/Orders Results/Orders Orders - ENZO OLVERA DO Xr Tib/Fib Rt (02/20/20 19:33) Vital Signs Date Time Temp Pulse Resp B/P (MAP) Pulse Ox O2 Delivery O2 Flow Rate FiO2 02/20/20 19:29 98.2 92 16 94 Room Air 02/20/20 19:25 98.2 92 16 02/20/20 19:25 98.2 92 16 94 Room Air 02/20/20 19:25 98.2 92 16 94 EKG/XRAY/CT/US XRAY Comments: no fx seen Departure Time of Disposition: 19:57 Disposition: 01 HOME, SELF-CARE Impression: Primary Impression: Hematoma Additional Impression: Contusion Condition: Stable Patient Instructions: Contusion, Hematoma Referrals: DAVE MUSA MD (PCP) PRIMARY CARE PROVIDER Additional Instructions: Ice. Elevate. Expect bruising discoloration to spread. Follow up with Dr. Musa. REturn to ER for any emergent concerns. Duration or Time Spent with Pa: 20 min Problem Qualifiers Additional Impression: Contusion Encounter type: initial encounter Contusion area: lower leg Laterality: right Qualified Codes: S80.11XA - Contusion of right lower leg, initial encounter ENZO OLVERA DO Feb 20, 2020 19:31
[2020-02-20 20:10] VITALS: BP 136/90
--- NOTE | 2020-02-20 20:28 | DIREP ---
PROCEDURE:XRAY TIB & FIB 2 VW-RT COMPARISON:None. INDICATIONS:injury FINDINGS: BONES:Normal. JOINTS:Normal. SOFT TISSUES:Focal soft tissue swelling ventral to the midshaft of the tibia, no subjacent fracture detected OTHER:No additional findings. CONCLUSION:No fracture. Soft tissue swelling ventral midshaft tibia. Dictated by: Gale Hawk MD on 02/20/2020 at 08:24 PM
== END 2020-02-20 20:10 | disposition home or self-care (01) ==
LOC: ER 18:58
DX: S80.11XA Contusion of right lower leg, initial encounter (principal); Z79.82 Long term (current) use of aspirin; Z79.899 Other long term (current) drug therapy; W22.8XXA Striking against or struck by other objects, initial encounter; Y93.89 Activity, other specified; Y92.89 Other specified places as the place of occurrence of the external cause; Y99.8 Other external cause status
CPT/HCPCS: 99283; 73590-RT

== ENCOUNTER → 2020-03-03 | Outpatient (CLI) | payer MEDICARE ==
--- NOTE | 2020-03-03 18:22 | DIREP ---
PROCEDURE:XRAY TIB & FIB 2 VW-RT COMPARISON:None. INDICATIONS:RIGHT LOWER LIMB CONTUSION FINDINGS: BONES:AP and lateral views of the right tibia and the fibula. There is a lucency identified in the midshaft of the medial cortex of the right tibia with adjacent sclerosis this could represent a stress fracture. A follow-up bone scan is recommended. No fracture of the tibial plateau is seen. No fractures of the proximal or mid shaft is seen. JOINTS:Mild narrowing of the medial joint space. Mild sharpening of the tibial spines. SOFT TISSUES:Normal. OTHER:No additional findings. CONCLUSION:A lucency with adjacent sclerosis identified involving the midshaft of the right tibia involving its medial cortex. The findings could represent a stress fracture. Recommend a follow-up bone scan.. Dictated by: Phillip Becerra MD on 03/03/2020 at 06:18 PM
--- NOTE | 2020-03-03 18:28 | DIREP ---
PROCEDURE:XRAY KNEE 2 VWS-LT COMPARISON:None. INDICATIONS:DJD KNEES FINDINGS: BONES:AP and lateral views of the left knee. No acute fracture is seen in the distal left femur, the tibial plateau or the proximal left tibia and the fibula. No fracture of the patella is seen. JOINTS:Narrowing of the joint space of the patellofemoral compartment. Mild narrowing also seen in the medial compartment with articular surface sclerosis and sharpening of the tibial spines. SOFT TISSUES:Normal. OTHER:No additional findings. 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 No acute fracture is seen. Dictated by: Phillip Becerra MD on 03/03/2020 at 06:26 PM
--- NOTE | 2020-03-03 18:31 | DIREP ---
PROCEDURE:XRAY KNEE 2 VWS-RT COMPARISON:[facility], , XRAY KNEE 1-2 VWS-RT, 04/07/2015, 12:16 PM. INDICATIONS:DJD KNEES FINDINGS: BONES:AP and lateral views of the right knee. No acute fracture is seen in the distal right femur, the tibial plateau, the proximal right tibia and the fibula and in the patella. JOINTS:A joint effusion is not excluded. Degenerative changes in the medial and patellofemoral compartment. No loose bodies are seen. SOFT TISSUES:Normal. OTHER:No additional findings. 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 No acute fracture or loose bodies are seen. Dictated by: Phillip Becerra MD on 03/03/2020 at 06:27 PM
== END | disposition home or self-care (01) ==
LOC: RAD 16:44
PROVIDERS: ATTEND Nurse Practitioner
DX: M17.0 Bilateral primary osteoarthritis of knee (principal)
CPT/HCPCS: 73560; 73590-RT

== ENCOUNTER → 2020-10-10 | Outpatient (CLI) | payer MEDICARE ==
[~2020-10-10] MED LIST changes: -CIPR500T3 PO; +CIPR500T4 PO
[2020-10-10 12:42] LABS: BASOPHIL # 0.1 10^3/uL (0.0-0.1); BASOPHIL % 0.6 % (0.0-0.2); EOSINOPHIL # 0.4 10^3/uL (0.0-0.2); EOSINOPHIL % 5.4 % (0.0-5.0); LYMPHOCYTES # 1.85 10^3/uL1 (1.0-4.8); LYMPHOCYTES % 23.9 % (24.0-44.0); MEAN CORP HGB 32.1 pg (26-34); MONOCYTES # 0.7 10^3/uL (0.3-0.8); MONOCYTES % 9.1 % (5.0-12.0); NEUTROPHIL # 4.7 10^3/uL (1.8-7.7); NEUTROPHILS % 60.7 % (41.0-85.0); PLATELET COUNT 156 10^3/uL (150-400); RED CELL DISTRIBUTION WIDTH 14.1 % (11.5-14.5)
[2020-10-10 12:54] LABS: CALCIUM 9.5 mg/dL (8.4-10.5); CARBON DIOXIDE 31.2 mmol/L (20.0-32)
== END | disposition home or self-care (01) ==
LOC: LAB 12:18
PROVIDERS: ATTEND Internal Medicine
DX: E11.9 Type 2 diabetes mellitus without complications (principal); I51.9 Heart disease, unspecified
CPT/HCPCS: 36415; 80053; 80061; 83036; 85025

== ENCOUNTER → 2020-10-15 | Outpatient (CLI) | payer MEDICARE ==
--- NOTE | 2020-10-15 13:25 | DIREP ---
PROCEDURE:CHEST 2 VIEWS COMPARISON:[facility], CR, XRAY CHEST SINGLE VW, 05/23/2018, 09:44 AM. INDICATIONS:R06.02 SHORTNESS OF BREATH FINDINGS: LUNGS/PLEURA:No significant pulmonary parenchymal abnormalities. No effusions. VASCULATURE:Normal. Unremarkable pulmonary vasculature. CARDIAC:Normal. No cardiac silhouette abnormality or cardiomegaly. MEDIASTINUM:Calcified aorta. BONES:Mild degenerative change. OTHER:Negative. CONCLUSION:No acute pulmonary process. Dictated by: Bren Patel M.D. on 10/15/2020 at 01:22 PM
== END | disposition home or self-care (01) ==
LOC: RAD 10:45
PROVIDERS: ATTEND Internal Medicine
DX: R06.02 Shortness of breath (principal)
CPT/HCPCS: 71046

== ENCOUNTER → 2021-02-04 | Outpatient (CLI) | payer MEDICARE ==
--- NOTE | 2021-02-04 18:01 | DIREP ---
PROCEDURE:CHEST 2 VIEWS COMPARISON:[facility], CR, XRAY CHEST 2 VWS, 10/15/2020, 10:55 AM. INDICATIONS:J18.9 PNEUMONIA FINDINGS: LUNGS/PLEURA:No focal consolidation, pleural effusion, or pneumothorax. VASCULATURE:Unremarkable pulmonary vasculature. Calcified aortic arch. CARDIAC:Normal. No cardiac silhouette abnormality or cardiomegaly. MEDIASTINUM:Normal. No visible mass or adenopathy. BONES:No acute osseus abnormality. OTHER:Negative. CONCLUSION: 1. No acute cardiopulmonary process. Dictated by: Mika Becerra MD on 02/04/2021 at 05:59 PM
== END | disposition home or self-care (01) ==
LOC: RAD 16:14
PROVIDERS: ATTEND Internal Medicine
DX: I70.0 Atherosclerosis of aorta (principal); J18.9 Pneumonia, unspecified organism
CPT/HCPCS: 71046

== ENCOUNTER → 2021-02-12 | Outpatient (CLI) | payer MEDICARE ==
[2021-02-12 11:39] LABS: BASOPHIL % 0.1 % (0.0-0.2); EOSINOPHIL # 0.2 10^3/uL (0.0-0.2); EOSINOPHIL % 1.6 % (0.0-5.0); LYMPHOCYTES # 2.43 10^3/uL1 (1.0-4.8); LYMPHOCYTES % 20.8 % (24.0-44.0); MONOCYTES # 0.9 10^3/uL (0.3-0.8); MONOCYTES % 7.3 % (5.0-12.0); NEUTROPHIL # 8.2 10^3/uL (1.8-7.7); NEUTROPHILS % 70.2 % (41.0-85.0); RED CELL DISTRIBUTION WIDTH 13.6 % (11.5-14.5)
[2021-02-12 12:20] LABS: CALCIUM 8.6 mg/dL (8.4-10.5); CARBON DIOXIDE 28.9 mmol/L (20.0-32)
== END | disposition home or self-care (01) ==
LOC: NPLAB 10:42
PROVIDERS: ATTEND Internal Medicine
DX: I13.0 Hypertensive heart and chronic kidney disease with heart failure and stage 1 through stage 4 chronic kidney disease, or unspecified chronic kidney disease (principal); E11.22 Type 2 diabetes mellitus with diabetic chronic kidney disease; N18.2 Chronic kidney disease, stage 2 (mild); G47.36 Sleep related hypoventilation in conditions classified elsewhere; N40.1 Benign prostatic hyperplasia with lower urinary tract symptoms; M15.0 Primary generalized (osteo)arthritis; Z79.899 Other long term (current) drug therapy
CPT/HCPCS: 36415; 80053; 80061; 82306; 82607; 82746; 83036; 84439; 84443; 85025

== ENCOUNTER 2021-03-11 14:03 | Inpatient (IN) | payer MEDICARE ==
[~2021-03-11] VITALS: Ht 190.5 cm; Wt 97.7 kg
[2021-03-11 14:03] VITALS: BP 127/75
[2021-03-11] MEDS ORDERED: NS 1000ML 1,000 ML IV STA (14:31)
[2021-03-11] MEDS ORDERED: NS 1000ML 1,000 ML ONE (14:34)
--- NOTE | 2021-03-11 14:34 | PCM.EKG ---
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: AGUS : 1940 Requested By: MARTHA CORNELL Order Number: [id number] [place] MD: Martha CORNELL Measurements Intervals [place] Rate: 80 P: 35 MT: 142 QRS: -63 QRSD: 151 T: 71 QT: 417 QTc: 482 Interpretive Statements Sinus rhythm Nonspecific IVCD with LAD Probable lateral infarct, old Probable anteroseptal infarct, recent Compared to ECG 05/23/2018 09:29:58 Intraventricular conduction delay now present Left-axis deviation no longer present Left bundle-branch block no longer present Electronically Signed On 03-12-2021 6:26:29 CDT by Martha CORNELL Please click the below link to view image of tracing.
[2021-03-11 14:40] LABS: BASOPHIL % 0.3 % (0.0-0.2); EOSINOPHIL # 0.1 10^3/uL (0.0-0.2); EOSINOPHIL % 1.1 % (0.0-5.0); LYMPHOCYTES # 3.23 10^3/uL1 (1.0-4.8); LYMPHOCYTES % 33.2 % (24.0-44.0); MEAN CORP HGB 30.7 pg (26-34); MONOCYTES # 0.8 10^3/uL (0.3-0.8); NEUTROPHIL # 5.6 10^3/uL (1.8-7.7); NEUTROPHILS % 57.4 % (41.0-85.0); PLATELET COUNT 179 10^3/uL (150-400); RED CELL DISTRIBUTION WIDTH 14.4 % (11.5-14.5)
--- NOTE | 2021-03-11 14:50 | ER.PDOC ---
General Chief Complaint: Syncope Stated Complaint: LOW BLOOD PRESSURE, WEAKNESS Time seen by MD: 14:48 Source: patient, family Exam Limitations: no limitations History of Present Illness Initial Comments Patient sent here by home health because of low blood pressure on routine vital signs. Patient is weak. While the nurse got patient out of the car and was wheeling him into the emergency room he passed out. This happened so briefly. He was dazed. He denies chest pain or shortness of breath. Symptoms Prior to Episode: none Precipitating Factors: sitting Loss of Consciousness: Brief (Seconds) Location of Injury: None Current Symptoms: back to normal Allergies: Coded Allergies: No Known Allergies (Unverified , 08/05/14) Home Meds Active Scripts Phenazopyridine HCl (Pyridium) 200 Mg Tablet, 200 MG PO TID, #21 Prov:GUTIERREZ HYMAN MD 03/30/18 Flavoxate Hcl (FLAVOXATE HCL) 100 Mg Tablet, 100 MG PO TID, #21 Prov:GUTIERREZ HYMAN MD 03/30/18 Ciprofloxacin Hcl (CIPRO) 500 Mg Tablet, 500 MG PO BID, #20 Prov:GUTIERREZ HYMAN MD 03/30/18 Reported Medications Tamsulosin Hcl (TAMSULOSIN HCL) 0.4 Mg Cap.er.24h, 0.4 MG PO DAILY24, #30 02/07/18 Ciprofloxacin Hcl (CIPROFLOXACIN HCL) 500 Mg Tablet, 1 TAB PO BID, #14 TAB 02/07/18 Psyllium Husk (FIBER) 0.52 Gm Capsule, 0.52 GM PO DAILY24, CAPSULE 02/02/18 Sennosides/Docusate Sodium (STOOL SOFTENER TABLET) 1 Each Tablet, 1 EACH PO DAILY24, TABLET 02/02/18 Magnesium Oxide (MAGNESIUM) 400 Mg Capsule, 250 MG PO DAILY24, CAPSULE 02/02/18 Naproxen Sodium (ALEVE) 220 Mg Tablet, 2 TAB PO BID, TABLET 02/02/18 Cyanocobalamin (Vitamin B-12) (B-12) 1,000 Mcg Tablet.er, 1000 MCG PO DAILY24 02/02/18 Gabapentin (GABAPENTIN) 100 Mg Capsule, 1 CAP PO TID, #90 CAP 2 Refills 02/02/18 Potassium Chloride (POTASSIUM CHLORIDE) 10 Meq Capsule.er, 1 CAP PO DAILY, #90 CAP 3 Refills 12/01/15 Metformin Hcl (METFORMIN HCL) 500 Mg Tablet, 1 TAB PO DAILY24, #180 TAB 3 Refills 12/01/15 Fluticasone Propionate (Flonase Allergy Relief) 9.9 Ml [place].susp, 9.9 ML NS DAILY 12/01/15 Voca-3 Fatty Acids (FISH OIL) 500 Mg Capsule.dr, 1400 MG PO DAILY24 08/05/14 Aspirin (Children's Aspirin) 81 Mg Tab.chew, 81 MG PO DAILY, TAB.CHEW 08/05/14 Allopurinol (ALLOPURINOL) 300 Mg Tablet, 300 MG PO DAILY, TABLET 08/05/14 Losartan Potassium (LOSARTAN POTASSIUM) 50 Mg Tablet, 50 MG PO BID, TABLET 08/05/14 Pravastatin Sodium (PRAVASTATIN SODIUM) 80 Mg Tablet, 80 MG PO HS, TABLET 08/05/14 Topiramate (TOPIRAMATE) 50 Mg Tablet, 50 MG PO TID, TABLET 08/05/14 Primidone (PRIMIDONE) 250 Mg Tablet, 250 MG PO TID, TABLET 08/05/14 Fenofibrate (FENOFIBRATE) 160 Mg Tablet, 160 MG PO DAILY, TABLET 08/05/14 Past Medical History Medical History: hypertension, parkinson Surgical History: no surgical history Family History Significant Family History: no pertinent family hx Social History Smoking: non-smoker Alcohol Use: heavy Drug Use: none Review of Systems Constitutional: see HPI EENTM: no symptoms reported Respiratory: no symptoms reported Cardiovascular: no symptoms reported Gastrointestinal: no symptoms reported Psychiatric/Neurological: see HPI All Other Systems: Reviewed and Negative Physical Exam General Appearance: No Apparent Distress, WD/WN Neck: Non-Tender, Full Range of Motion, Supple, Normal Inspection Cardiovascular/Respiratory: Regular Rate, Rhythm, No M/R/G, Normal Peripheral Pulses, No JVD, Normal Breath Sounds, No Respiratory Distress Gastrointestinal: Normal Bowel Sounds, No Organomegaly, No Pulsatile Mass, Non Tender, Soft Extremities: Normal Range of Motion, Non-Tender, Normal Inspection, No Pedal Edema, No Calf Tenderness, Normal Capillary Refill Psychiatric: Alert, Oriented x 3 Cranial Nerves: Normal Hearing, Normal Speech, PERRL Motor/Sensory: No Motor Deficit, No Sensory Deficit, No Pronator Drift, Negative Babinski's Sign Skin: Normal Color, Warm/Dry Lymphatic: No Adenopathy Results/Orders Results/Orders Orders - MARTHA CORNELL MD Cbc With Auto Diff (03/11/21 14:31) Comprehensive Metabolic Panel (03/11/21 14:31) Creatine Kinase (03/11/21 14:31) Creatine Kinase Mb (03/11/21 14:31) PT (03/11/21 14:31) Partial Thromboplastin Time. (03/11/21 14:31) Xr Chest 1v (03/11/21 14:31) Ct Head Wo Contrast (03/11/21 14:31) Urinalysis (03/11/21 14:31) Ekg-Routine (03/11/21 14:31) Troponin I (03/11/21 14:31) 0.9 % Sodium Chloride (Ns 1000ml) (03/11/21 14:31) 0.9 % Sodium Chloride (Ns 1000ml) (03/11/21 14:34) Urine Culture (03/11/21 16:15) Vital Signs Date Time Temp Pulse Resp B/P (MAP) Pulse Ox O2 Delivery O2 Flow Rate FiO2 03/11/21 15:20 72 116/73 (87) 96 03/11/21 14:03 97.8 82 18 03/11/21 14:03 97.8 82 18 96 03/11/21 14:03 97.8 82 18 127/75 (92) 96 Room Air Administered Medications Medications (Trade) Dose Ordered Sig/Flora Route PRN Reason Start Time Stop Time Status Last Admin Dose Admin Sodium Chloride 1,000 ml @ 1,200 mls/hr Q50M STAT IV 03/11/21 14:31 03/11/21 15:20 DC 03/11/21 14:47 1,200 MLS/HR Laboratory Tests Test 03/11/21 14:15 03/11/21 16:10 White Blood Count 9.7 10^3/uL (4.5-11.0) Red Blood Count 4.99 10^6/uL (4.50-5.90) Hemoglobin 15.3 g/dL (13.9-16.3) Hematocrit 48.0 % (37.0-53.0) Mean Corpuscular Volume 96.2 fL (78-100) Mean Corpuscular Hemoglobin 30.7 pg (26-34) Mean Corpuscular Hemoglobin Concent 31.9 g/dL (33-36.5) L Red Cell Distribution Width 14.4 % (11.5-14.5) Platelet Count 179 10^3/uL (150-400) Mean Platelet Volume 11.1 fL (7.8-11.0) H Neutrophils (%) (Auto) 57.4 % (41.0-85.0) Lymphocytes (%) (Auto) 33.2 % (24.0-44.0) Monocytes (%) (Auto) 8.0 % (5.0-12.0) Neutrophils # (Auto) 5.6 10^3/uL (1.8-7.7) Lymphocytes # (Auto) 3.23 10^3/uL1 (1.0-4.8) Monocytes # (Auto) 0.8 10^3/uL (0.3-0.8) Absolute Immature Granulocyte (auto 0.03 10^3 u/L (0-2) Absolute Eosinophils (auto) 0.1 10^3/uL (0.0-0.2) Immature Granulocytes % 0.30 % (0.00-0.50) Eosinophils % 1.1 % (0.0-5.0) Basophils % 0.3 % (0.0-0.2) H Basophils # 0.0 10^3/uL (0.0-0.1) Prothrombin Time 10.9 SEC (9.6-12.0) Prothrombin Time INR (Non-Therap) 1.0 Activated Partial Thromboplast Time 20.0 SEC (24.67-30.72) Sodium Level 142 mmol/L (132-145) Potassium Level 4.7 mmol/L (3.6-5.2) Chloride Level 106.0 mmol/L (96-109) Carbon Dioxide Level 26.5 mmol/L (20.0-32) Anion Gap 14.2 Blood Urea Nitrogen 37 mg/dL (7-18) H Creatinine 2.38 mg/dL (0.59-1.40) *H Estimated GFR () 31.8 (>/=60) Est GFR (CKD-EPI)(Non-Afr Tristanian) 26.3 (>/=60) BUN/Creatinine Ratio 15.0 Glucose Level 121 mg/dL (70-110) H Calcium Level 8.8 mg/dL (8.4-10.5) Total Bilirubin 0.6 mg/dL (0.2-1.0) Aspartate Amino Transferase (AST) 27 U/L (0-35) Alanine Aminotransferase (ALT) 12 U/L (12-78) Alkaline Phosphatase 87 U/L (50-136) Total Creatine Kinase 89 U/L (39-308) Creatine Kinase MB 2.2 ng/mL (0.5-3.6) Troponin I < 0.02 ng/mL (0.00-0.05) Total Protein 6.8 g/dL (6.4-8.2) Albumin 3.0 g/dL (3.4-5.0) L Globulin 3.8 Albumin/Globulin Ratio 0.789 Urine Collection Type UNKNOWN Urine Color DARK YELLOW Urine Appearance HAZY Urine Bilirubin NEGATIVE (NEGATIVE) Urine Ketones NEGATIVE (NEGATIVE) Urine Specific [place] 1.025 (1.005-1.030) Urine pH 5.0 (4.5-8.0) Urine Protein 100 mg/dL (NEGATIVE) H Urine Urobilinogen 0.2 E.U./dL (0.2) Urine Nitrate NEGATIVE (NEGATIVE) Urine Leukocyte Esterase SMALL (NEGATIVE) H Urine Glucose (Auto)(UA) NEGATIVE (NEGATIVE) Urine Blood TRACE-LYSED (NEGATIVE) H Urine RBC TNTC RBC/HPF (NONE SEEN) H Urine WBC TNTC WBC/HPF (0-2) H Urine Squamous Epithelial Cells FEW #/HPF (FEW) Urine Bacteria FEW (NONE SEEN) H EKG/XRAY/CT/US XRAY: chest (No active disease) CT Comments: No acute intracranial abnormality ER DEPART Departure Time of Disposition: 16:33 Disposition: 09 ADMITTED INPATIENT Impression: Primary Impression: Syncope and collapse Additional Impressions: Acute kidney injury superimposed on CKD Dehydration UTI (urinary tract infection) Condition: Stable Referrals: ERIC ESTEVEZ MD (PCP) PRIMARY CARE PROVIDER Comments Admitted to Dr. Stock Duration or Time Spent with Pa: 60 min Problem Qualifiers Additional Impressions: UTI (urinary tract infection) Urinary tract infection type: site unspecified Hematuria presence: with hematuria Qualified Codes: N39.0 - Urinary tract infection, site not specified; R31.9 - Hematuria, unspecified MARTHA CORNELL MD Mar 11, 2021 14:50
[2021-03-11 15:12] LABS: ALANINE AMINOTRANSFERASE(ML) 12 U/L (12-78); ALKALINE PHOSPHATASE 87 U/L (50-136); ASPARTATE AMINO TRANSFERASE 27 U/L (0-35); CALCIUM 8.8 mg/dL (8.4-10.5); CARBON DIOXIDE 26.5 mmol/L (20.0-32); GLUCOSE 121 mg/dL (70-110)
[2021-03-11 15:20] VITALS: BP 116/73
--- NOTE | 2021-03-11 15:23 | DIREP ---
PROCEDURE:CHEST 1 VIEW COMPARISON:[facility], CR, XRAY CHEST 2 VWS, 10/15/2020, 10:[address] [facility], CR, XRAY CHEST 2 VWS, 02/04/2021, 04:23 PM. INDICATIONS:Syncope FINDINGS: LUNGS/PLEURA:Stable minimal subsegmental atelectasis and/or scarring in medial lung bases. Otherwise clear. No focal consolidation, pleural effusion or pneumothorax. VASCULATURE:Normal. Unremarkable pulmonary vasculature. CARDIAC:Heart size is normal. Stable mild calcified plaque the aortic knob. MEDIASTINUM:Normal. No visible mass or adenopathy. BONES:Stable mild degenerative changes involving left acromioclavicular thoracic spine. No acute abnormality. OTHER:Negative. CONCLUSION: 1. No acute cardiopulmonary abnormality. There is no significant change as compared with the previous examination. 2. Stable chronic findings, as above. Dictated by: Hussein Guy MD on 03/11/2021 at 03:20 PM
--- NOTE | 2021-03-11 15:24 | DIREP ---
PROCEDURE: CT HEAD BRAIN W/O CONTRAST TECHNIQUE:Contiguous 5.0 mm transaxial sections were obtained from the vertex to skull base without the use of intravenous contrast. COMPARISON:[facility], CT, CT HEAD BRAIN W/O CONTRAST, 05/23/2018, 09:50 AM. INDICATIONS:Syncope FINDINGS: VENTRICLES:Prominent, consistent with the degree of age related cortical atrophy CEREBRUM:No acute intracranial hemorrhage or mass effect. Hypoattenuation throughout the deep periventricular and subcortical white matter, consistent with chronic small vessel ischemia. CEREBELLUM:Normal. BRAINSTEM:Normal. SKULL:Normal. SINUSES:Minimal opacification of the visualize right maxillary sinus. Remainder of visualized paranasal sinuses mastoid air cells are well pneumatized. OTHER:Negative. CONCLUSION: 1. No acute intracranial hemorrhage or mass effect. 2. Age-related involutional and chronic microvascular ischemic changes. Dictated by: Mika Becerra MD on 03/11/2021 at 03:20 PM
--- NOTE | 2021-03-11 15:45 | NUR ---
bp standing bp 84/56. lightheaded and feels like passing out when standing. Unable to produce urine for sample. brief is soaked and discharge noted around urethra.
[2021-03-11 16:25] LABS: BILIRUBIN,URINE NEGATIVE (NEGATIVE); UA COLOR DARK YELLOW
[2021-03-11 16:26] LABS: UROBILINOGEN,URINE 0.2 E.U./dL (0.2)
[2021-03-11 16:35] VITALS: BP 142/70
[2021-03-11] MEDS ORDERED: ROCEPHIN 1,000 MG in NS 100ML 100 ML IV STA (16:35)
[2021-03-11] MEDS ORDERED: HNS 1000ML 1,000 ML IV STA (16:35)
[2021-03-11] MEDS ORDERED: NS 100ML 100 ML IV ONE (17:10)
[2021-03-11] MEDS ORDERED: ROCEPHIN ONE (17:10)
[2021-03-11] MEDS ORDERED: HNS 1000ML 1,000 ML ONE (17:10)
[2021-03-11] MEDS ORDERED: PERI-COLACE TABLET PO SCH (17:30)
[2021-03-11] MEDS ORDERED: TYLENOL PO PRN ×2 (17:30→21:30)
[2021-03-11] MEDS: FLOMAX PO SCH (17:30)
[2021-03-11] MEDS ORDERED: DEXTROSE 50%-WATER SYRINGE IV PRN (17:30)
[2021-03-11 17:38] VITALS: BP 133/62
[2021-03-11] MEDS: COZAAR PO SCH (17:46)
[2021-03-11] MEDS: NEURONTIN PO SCH (17:47)
[2021-03-11] MEDS: MYSOLINE PO SCH (17:47)
--- NOTE | 2021-03-11 17:47 | PCM.HP ---
History of Present Illness Reason for Visit: (1) Episode of syncope ICD Code: R55 - Syncope and collapse SNOMED: 891731689 Hx of Present Illness Ms. Morales is an 80-year-old man with a past medical history of Parkinson's disease type 2 diabetes and hypertension presenting with several episodes of syncope in the past 10 days. Patient reports having syncopal episodes when getting up too fast and did report also having head trauma from one of his syncopal episodes. After he had a syncopal episode today he was brought into the ER by his family. He denies any nausea vomiting diarrhea fever or chills but family does endorse that he does have cloudy urine. Travel History [place] RISK:Travel to/contact w: No Review of Systems Constitutional: No: Fever, Chills Eyes: No: Pain, Vision change, Conjunctivae inflammation ENT: No: Ear pain, Ear discharge Respiratory: No: Cough Cardiovascular: No: Chest Pain, Palpitations, Orthopnea Gastrointestinal: No: Nausea, Vomiting Genitourinary: No Dysuria, No Frequency; Other (cloudy urine) Musculoskeletal: No: other, neck pain Skin: No: Rash, Lesions Neurological: Other (syncopy) Allergies: Coded Allergies: No Known Allergies (Unverified , 08/05/14) Scheduled Allopurinol (Allopurinol), 300 MG PO DAILY, (Reported) Aspirin (Children's Aspirin), 81 MG PO DAILY, (Reported) Ciprofloxacin Hcl (Ciprofloxacin Hcl), 1 TAB PO BID, (Reported) Ciprofloxacin Hcl (Cipro), 500 MG PO BID Cyanocobalamin (Vitamin B-12) (B-12), 1,000 MCG PO DAILY24, (Reported) Fenofibrate (Fenofibrate), 160 MG PO DAILY, (Reported) Flavoxate Hcl (Flavoxate Hcl), 100 MG PO TID Fluticasone Propionate (Flonase Allergy Relief), 9.9 ML NS DAILY, (Reported) Gabapentin (Gabapentin), 1 CAP PO TID, (Reported) Losartan Potassium (Losartan Potassium), 50 MG PO BID, (Reported) Magnesium Oxide (Magnesium), 250 MG PO DAILY24, (Reported) Metformin Hcl (Metformin Hcl), 1 TAB PO DAILY24, (Reported) Naproxen Sodium (Aleve), 2 TAB PO BID, (Reported) Topanga-3 Fatty Acids (Fish Oil), 1,400 MG PO DAILY24, (Reported) Phenazopyridine HCl (Pyridium), 200 MG PO TID Potassium Chloride (Potassium Chloride), 1 CAP PO DAILY, (Reported) Pravastatin Sodium (Pravastatin Sodium), 80 MG PO HS, (Reported) Primidone (Primidone), 250 MG PO TID, (Reported) Psyllium Husk (Fiber), 0.52 GM PO DAILY24, (Reported) Sennosides/Docusate Sodium (Stool Softener Tablet), 1 EACH PO DAILY24, (Reported) Tamsulosin Hcl (Tamsulosin Hcl), 0.4 MG PO DAILY24, (Reported) Topiramate (Topiramate), 50 MG PO TID, (Reported) VTE VTE Risk Total Score: >5 VTE Risk Score VTE Risk: Score 0-1 = Low Risk (Aggressive mobilization; early ambulation; no VTE prophylaxis required) Score 2: Moderate Risk (Intermittent/Pneumatic Compression Device OR Lovenox/Heparin/Coumadin) Score 3-4: High Risk (Intermittent/Pneumatic Compression Device AND Lovenox/Heparin/Coumadin) Score > or =5: Highest Risk (Intermittent/Pneumatic Compression Device AND Lovenox/Heparin/Coumadin) VTE VTE Present on Admission: Yes Currently receiving anticoagul: Yes VTE Risk Total Score: >5 Exam Vital Signs Vital Signs Date Time Temp Pulse Resp B/P (MAP) Pulse Ox O2 Delivery O2 Flow Rate FiO2 03/11/21 16:35 70 142/70 (94) 95 03/11/21 14:03 97.8 18 03/11/21 14:03 Room Air General Appearance: Alert, Oriented X3, Cooperative HEENT: Atraumatic, PERRLA Respiratory: Clear to auscultation, Normal air movement Cardiovascular: Regular rate, Normal S1, Normal S2 Abdominal: Normal bowel sounds, Soft Extremities: No clubbing, No cyanosis, No edema Skin: No rash, No breakdown, No lesions Neuro: Normal speech Psych/Mental Status: Mood NL Assessment/Plan Assessment/Plan Assessment/Plan Assessment UTI Syncopal Episode -likely due to orthostatic hypotension YADIRA Parkinson's T2DM Hypertension Plan Admit to obs Rocephin daily Resume home meds Diabetic diet SSI Ur and Blood culture pending DNR fall precautions Problems: (1) Parkinsons disease ICD Code: G20 - Parkinson's disease SNOMED: 83510282 (2) Type 2 diabetes mellitus ICD Code: E11.9 - Type 2 diabetes mellitus without complications SNOMED: 01554703 (3) Hypertension ICD Code: I10 - Essential (primary) hypertension SNOMED: 35939245 (4) UTI (urinary tract infection) Status: Acute ICD Code: N39.0 - Urinary tract infection, site not specified SNOMED: 59809922 (5) Syncope and collapse Status: Acute ICD Code: R55 - Syncope and collapse SNOMED: 801025970 (6) Dehydration Status: Acute ICD Code: E86.0 - Dehydration SNOMED: 44078509, 330117539 Patient History: FH: cancer Hypertension No known health problems 19 CHILD 19 CHILD 19 CHILD Unknown G8 SISTER G8 SISTER Problem Qualifiers (1) UTI (urinary tract infection): Urinary tract infection type: site unspecified Hematuria presence: with hematuria Qualified Codes: N39.0 - Urinary tract infection, site not specified; R31.9 - Hematuria, unspecified KIM MENDIETA MD Mar 11, 2021 17:47
[2021-03-11] MEDS: ZYLOPRIM PO SCH (17:48)
--- NOTE | 2021-03-11 17:49 | NUR ---
MED REVIEW SEVERAL MEDICATIONS IN LIST OF CURRENT MEDS PT IS NO LONGER TAKING. MARKED NON ADMINISTERED. AWAITING EXACT DOSES ON GABAPENTIN AND CARB/LEVO/DOPA FROM FAMILY SO UPDATE CURRENT LIST. REPORTED TO [facility] STAFF.
[2021-03-11] MEDS: ROCEPHIN 1,000 MG in NS 100ML 100 ML IV SCH (17:51)
--- NOTE | 2021-03-11 18:05 | NUR ---
ADMIT PT TAKEN TO [facility] VIA STRETCHER IN STABLE CONDITION. REPORT GIVEN TO SIMBA VERDIN.
[2021-03-11 20:30] VITALS: BP 144/78
[2021-03-11] MEDS ORDERED: ALPR0.25 PO (20:48)
[2021-03-11] MEDS ORDERED: SOLI10TA2 PO (20:48)
[2021-03-11] MEDS ORDERED: FLUO40CA2 PO (20:48)
[2021-03-11] MEDS ORDERED: LISI10TA20 PO (20:48)
[2021-03-11] MEDS ORDERED: ACET325T12 PO (20:48)
[2021-03-11] MEDS ORDERED: GABA400C10 PO (20:48)
[2021-03-11] MEDS ORDERED: CARB1TAB22 PO (20:48)
[2021-03-11] MEDS ORDERED: MULT-632 PO (20:48)
[2021-03-11] MEDS: PYRIDIUM PO SCH (21:00)
[2021-03-11] MEDS: PROZAC PO SCH (21:30)
[2021-03-11] MEDS ORDERED: SINEMET 25/100 PO STA (22:35)
[2021-03-11] MEDS ORDERED: NEURONTIN PO STA (22:35)
[2021-03-11] MEDS: URISPAS PO SCH (22:50)
[2021-03-11] MEDS: XANAX PO SCH (22:51)
[2021-03-11] MEDS: ZESTRIL PO SCH (22:51)
[2021-03-12 00:02] VITALS: BP 137/66
[2021-03-12 04:26] VITALS: BP 146/76
[2021-03-12] MEDS: HNS 1000ML 1,000 ML IV SCH ×2 (05:39→16:28)
[2021-03-12 06:24] LABS: BASOPHIL % 0.5 % (0.0-0.2); EOSINOPHIL # 0.2 10^3/uL (0.0-0.2); EOSINOPHIL % 2.2 % (0.0-5.0); LYMPHOCYTES # 2.03 10^3/uL1 (1.0-4.8); LYMPHOCYTES % 27.5 % (24.0-44.0); MEAN CORP HGB 30.2 pg (26-34); MONOCYTES # 0.9 10^3/uL (0.3-0.8); MONOCYTES % 12.6 % (5.0-12.0); NEUTROPHIL # 4.2 10^3/uL (1.8-7.7); NEUTROPHILS % 56.8 % (41.0-85.0); PLATELET COUNT 141 10^3/uL (150-400); RED CELL DISTRIBUTION WIDTH 14.2 % (11.5-14.5)
[2021-03-12 06:37] LABS: CARBON DIOXIDE 25.1 mmol/L (20.0-32)
[2021-03-12 06:38] LABS: CALCIUM 7.8 mg/dL (8.4-10.5)
--- NOTE | 2021-03-12 07:14 | NUR ---
REPORT TO ONCOMING SHIFT. PT CARE RELINQUISHED.
[2021-03-12 08:21] VITALS: BP 124/83
[2021-03-12] MEDS: PYRIDIUM PO SCH ×3 (09:00→20:28)
[2021-03-12] MEDS ORDERED: TRIGLIDE PO SCH (09:00)
[2021-03-12] MEDS: SINEMET 25/100 PO SCH ×4 (09:53→20:29)
[2021-03-12] MEDS: MYSOLINE PO SCH ×3 (09:53→20:27)
[2021-03-12] MEDS: ASPIRIN PO SCH (09:53)
[2021-03-12] MEDS: NEURONTIN PO SCH ×5 (09:53→20:27)
[2021-03-12] MEDS: URISPAS PO SCH ×3 (09:54→20:27)
[2021-03-12] MEDS: COZAAR PO SCH ×2 (09:57→20:27)
[2021-03-12] MEDS ORDERED: TRICOR PO SCH (10:38)
[2021-03-12 11:17] VITALS: BP 157/88
[2021-03-12 14:04] LABS: UA COLOR ORANGE
[2021-03-12 14:05] LABS: BILIRUBIN,URINE NEGATIVE (NEGATIVE)
[2021-03-12 16:09] VITALS: BP 173/91
[2021-03-12] MEDS: LYRICA PO SCH ×2 (16:31→20:27)
[2021-03-12] MEDS: ROCEPHIN 1,000 MG in NS 100ML 100 ML IV SCH (16:37)
[2021-03-12] MEDS: FLOMAX PO SCH (16:38)
[2021-03-12] MEDS ORDERED: SENOKOT PO PRN (17:00)
[2021-03-12] MEDS ORDERED: COLACE PO PRN (17:00)
--- NOTE | 2021-03-12 18:35 | NUR ---
REPORT REPORT TO ONCOMING SHIFT
--- NOTE | 2021-03-12 19:43 | PRM.PN ---
Subjective Subjective Date: Mar 12, 2021 Time: 19:41 Subjective Patient seen and examined this morning with no acute events overnight. Patient reports some burning pain in his feet Patient History: FH: cancer Hypertension No known health problems 19 CHILD 19 CHILD 19 CHILD Unknown G8 SISTER G8 SISTER VTE VTE Risk Total Score: 5 VTE Risk Score VTE Risk: Score 0-1 = Low Risk (Aggressive mobilization; early ambulation; no VTE prophylaxis required) Score 2: Moderate Risk (Intermittent/Pneumatic Compression Device OR Lovenox/Heparin/Coumadin) Score 3-4: High Risk (Intermittent/Pneumatic Compression Device AND Lovenox/Heparin/Coumadin) Score > or =5: Highest Risk (Intermittent/Pneumatic Compression Device AND Lovenox/Heparin/Coumadin) Review of Systems Constitutional: No: Fever, Chills Eyes: No: Pain, Vision change, Conjunctivae inflammation ENT: No: Ear pain, Ear discharge Respiratory: No: Cough Cardiovascular: No: Chest Pain, Palpitations, Orthopnea Gastrointestinal: No: Nausea, Vomiting Genitourinary: No Dysuria, No Frequency; Other (cloudy urine) Musculoskeletal: No: other, neck pain Skin: No: Rash, Lesions Neurological: Other (syncopy) Allergies: Coded Allergies: No Known Allergies (Unverified , 08/05/14) Scheduled Alprazolam (Xanax), 0.25 MG PO DAILY24, (Reported) Aspirin (Children's Aspirin), 81 MG PO DAILY, (Reported) Carbidopa/Levodopa (Carbidopa-Levodopa 25-100 Tab), 1 EACH PO QID, (Reported) Fluoxetine Hcl (Fluoxetine Hcl), 40 MG PO DAILY24, (Reported) Gabapentin (Gabapentin), 400 MG PO QID, (Reported) Lisinopril (Lisinopril), 10 MG PO DAILY24, (Reported) Multivitamin (Multi Vitamin Daily), 1 EACH PO DAILY24, (Reported) Psyllium Husk (Fiber), 0.52 GM PO DAILY24, (Reported) Sennosides/Docusate Sodium (Stool Softener Tablet), 1 EACH PO DAILY24, (R eported) Solifenacin Succinate (Vesicare), 10 MG PO ACL, (Reported) Tamsulosin Hcl (Tamsulosin Hcl), 0.4 MG PO DAILY24, (Reported) Scheduled PRN Acetaminophen (Tylenol), 650 MG PO PRN PRN for pain, (Reported) Discontinued Medications Allopurinol (Allopurinol), 300 MG PO DAILY, (Reported) Discontinued Reason: No Longer Taking Ciprofloxacin Hcl (Ciprofloxacin Hcl), 1 TAB PO BID, (Reported) Discontinued Reason: No Longer Taking Ciprofloxacin Hcl (Cipro), 500 MG PO BID Discontinued Reason: No Longer Taking Cyanocobalamin (Vitamin B-12) (B-12), 1,000 MCG PO DAILY24, (Reported) Discontinued Reason: No Longer Taking Fenofibrate (Fenofibrate), 160 MG PO DAILY, (Reported) Discontinued Reason: No Longer Taking Flavoxate Hcl (Flavoxate Hcl), 100 MG PO TID Discontinued Reason: No Longer Taking Fluticasone Propionate (Flonase Allergy Relief), 9.9 ML NS DAILY, (Reported) Discontinued Reason: No Longer Taking Gabapentin (Gabapentin), 1 CAP PO TID, (Reported) Discontinued Reason: No Longer Taking Losartan Potassium (Losartan Potassium), 50 MG PO BID, (Reported) Discontinued Reason: No Longer Taking Magnesium Oxide (Magnesium), 250 MG PO DAILY24, (Reported) Discontinued Reason: No Longer Taking Metformin Hcl (Metformin Hcl), 1 TAB PO DAILY24, (Reported) Discontinued Reason: No Longer Taking Naproxen Sodium (Aleve), 2 TAB PO BID, (Reported) Discontinued Reason: No Longer Taking [place]-3 Fatty Acids (Fish Oil), 1,400 MG PO DAILY24, (Reported) Discontinued Reason: No Longer Taking Phenazopyridine HCl (Pyridium), 200 MG PO TID Discontinued Reason: No Longer Taking Potassium Chloride (Potassium Chloride), 1 CAP PO DAILY, (Reported) Discontinued Reason: No Longer Taking Pravastatin Sodium (Pravastatin Sodium), 80 MG PO HS, (Reported) Discontinued Reason: No Longer Taking Primidone (Primidone), 250 MG PO TID, (Reported) Discontinued Reason: No Longer Taking Topiramate (Topiramate), 50 MG PO TID, (Reported) Discontinued Reason: Discontinue Objective Vitals and I/O Vital Sign - Last 24 Hours 03/11/21 03/11/21 03/11/21 03/11/21 20:30 21:33 21:43 22:51 Temp 97.6 Pulse 62 69 Resp 18 16 B/P (MAP) 144/78 (100) 144/78 Pulse Ox 95 94 O2 Delivery Room Air Room Air Nasal Cannula O2 Flow Rate 0.00 FiO2 21 03/12/21 03/12/21 03/12/21 03/12/21 00:02 04:26 08:00 08:18 Temp 97.4 97.7 Pulse 60 60 68 Resp 16 16 18 B/P (MAP) 137/66 (89) 146/76 (99) Pulse Ox 100 98 90 O2 Delivery Nasal Canula Nasal Canula Nasal Cannula Room Air O2 Flow Rate 2.00 2.00 0.00 03/12/21 03/12/21 03/12/21 03/12/21 08:21 09:57 11:17 16:09 Temp 97.7 97.5 98.0 Pulse 59 58 65 Resp 18 20 20 B/P (MAP) 124/83 (97) 124/83 157/88 (111) 173/91 (118) Pulse Ox 94 98 95 O2 Flow Rate 943.00 Intake and Output 03/12/21 06:59 Intake Total 1400 ml Output Total 1500 ml Balance -100 ml General: Alert, Oriented X3, Cooperative HEENT: Atraumatic, PERRLA Lungs: Clear to auscultation, Normal air movement Heart: Regular rate, Normal S1, Normal S2 Abdomen: Normal bowel sounds, Soft Extremities: No clubbing, No cyanosis, No edema Neuro: Normal speech Psych/Mental Status: Mood NL Other physical findings Patient with orthostatic still positive All Results(Lab/Rad) Laboratory Tests Test 03/11/21 22:18 03/12/21 06:16 03/12/21 07:30 03/12/21 11:29 Bedside Glucose 134 84 84 White Blood Count 7.4 10^3/uL Red Blood Count 4.50 10^6/uL Hemoglobin 13.6 g/dL Hematocrit 43.2 % Mean Corpuscular Volume 96.0 fL Mean Corpuscular Hemoglobin 30.2 pg Mean Corpuscular Hemoglobin Concent 31.5 g/dL Red Cell Distribution Width 14.2 % Platelet Count 141 10^3/uL Mean Platelet Volume 10.8 fL Neutrophils (%) (Auto) 56.8 % Lymphocytes (%) (Auto) 27.5 % Monocytes (%) (Auto) 12.6 % Neutrophils # (Auto) 4.2 10^3/uL Lymphocytes # (Auto) 2.03 10^3/uL1 Monocytes # (Auto) 0.9 10^3/uL Absolute Immature Granulocyte (auto 0.03 10^3 u/L Absolute Eosinophils (auto) 0.2 10^3/uL Immature Granulocytes % 0.40 % Eosinophils % 2.2 % Basophils % 0.5 % Basophils # 0.0 10^3/uL Sodium Level 143 mmol/L Potassium Level 4.4 mmol/L Chloride Level 109.0 mmol/L Carbon Dioxide Level 25.1 mmol/L Anion Gap 13.3 Blood Urea Nitrogen 34 mg/dL Creatinine 1.54 mg/dL Estimated GFR () 52.6 Est GFR (CKD-EPI)(Non-Afr [place]) 43.5 BUN/Creatinine Ratio 22.0 Glucose Level 108 mg/dL Calcium Level 7.8 mg/dL Total Bilirubin 0.3 mg/dL Aspartate Amino Transf (AST/SGOT) 18 U/L Alanine Aminotransferase (ALT/SGPT) 8 U/L Alkaline Phosphatase 76 U/L Total Protein 5.6 g/dL Albumin 2.4 g/dL Globulin 3.2 Albumin/Globulin Ratio 0.750 Test 03/12/21 13:30 03/12/21 16:36 Urine Collection Type RANDOM Urine Color ORANGE Urine Appearance CLOUDY Urine Bilirubin NEGATIVE Urine Ketones NEGATIVE Urine Specific [place] 1.025 Urine pH 5.0 Urine Protein 100 mg/dL Urine Urobilinogen 1.0 E.U./dL Urine Nitrate POSITIVE Urine Leukocyte Esterase LARGE Urine Glucose (Auto)(UA) 100 Urine Blood MODERATE Urine RBC 2-5 RBC/HPF Urine WBC TNTC WBC/HPF Urine Squamous Epithelial Cells FEW #/HPF Urine Bacteria MANY Bedside Glucose 73 Current Medications Medications (Trade) Dose Ordered Sig/Flora Route PRN Reason Start Time Stop Time Status Last Admin Dose Admin Sodium Chloride 1,000 ml @ 1,200 mls/hr Q50M STAT IV 03/11/21 14:31 03/11/21 15:20 DC 03/11/21 14:47 Sodium Chloride 1,000 ml @ STK-MED ONCE .ROUTE 03/11/21 14:34 03/11/21 14:34 DC Sodium Chloride 1,000 ml @ 100 mls/hr Q10H STAT IV 03/11/21 16:35 03/12/21 02:34 DC 03/11/21 17:20 Ceftriaxone Sodium 1000 mg/ Sodium Chloride 100 ml @ 100 mls/hr STAT STAT IV 03/11/21 16:35 03/11/21 17:34 DC 03/11/21 17:20 Sodium Chloride 100 ml @ ud STK-MED ONCE IV 03/11/21 17:10 03/11/21 17:10 DC Ceftriaxone Sodium (Rocephin) 1,000 mg STK-MED ONCE .ROUTE 03/11/21 17:10 03/11/21 17:10 DC Sodium Chloride 1,000 ml @ ud STK-MED ONCE .ROUTE 03/11/21 17:10 03/11/21 17:11 DC Acetaminophen (Tylenol) 325 mg Q4H PRN PO PAIN 1 - 3 03/11/21 17:30 03/12/21 10:45 DC Dextrose (Dextrose 50%-Water Syringe) 25 ml STAT PRN IV HYPOGLYCEMIA 03/11/21 17:30 04/10/21 17:29 Ceftriaxone Sodium 1000 mg/ Sodium Chloride 100 ml @ 100 mls/hr Q24HRS IV 03/11/21 17:30 03/16/21 17:28 03/12/21 16:37 Allopurinol (Zyloprim) 300 mg DAILY PO 03/12/21 09:00 04/11/21 08:59 Aspirin (Aspirin) 81 mg DAILY PO 03/12/21 09:00 04/11/21 08:59 03/12/21 09:53 Fenofibrate (Triglide) 160 mg DAILY PO 03/12/21 09:00 03/12/21 10:38 DC Flavoxate HCl (Urispas) 100 mg TID PO 03/11/21 21:00 04/10/21 20:59 03/12/21 16:31 Gabapentin (Neurontin) 100 mg TID PO 03/11/21 21:00 03/12/21 10:42 DC 03/12/21 09:54 Losartan Potassium (Cozaar) 50 mg BID PO 03/11/21 21:00 04/10/21 20:59 03/12/21 09:57 Phenazopyridine HCl (Pyridium) 200 mg TID PO 03/11/21 21:00 04/10/21 20:59 03/12/21 15:00 Primidone (Mysoline) 250 mg TID PO 03/11/21 21:00 04/10/21 20:59 03/12/21 16:31 Senna/Docusate Sodium (Sonia-Colace Tablet) 1 each DAILY24 PO 03/11/21 17:30 03/12/21 10:53 DC Tamsulosin HCl (Flomax) 0.4 mg DAILY24 PO 03/11/21 17:30 04/10/21 17:29 03/12/21 16:38 Acetaminophen (Tylenol) 650 mg Q4HR PRN PO PAIN 1 - 3 03/11/21 21:30 04/10/21 21:29 Alprazolam (Xanax) 0.25 mg DAILY24 PO 03/11/21 21:30 04/10/21 21:29 03/11/21 22:51 Carbidopa/Levodopa (Sinemet 25/100) 1 each QID PO 03/12/21 09:00 04/11/21 08:59 03/12/21 16:37 Gabapentin (Neurontin) 400 mg QID PO 03/12/21 09:00 04/11/21 08:59 03/12/21 16:37 Lisinopril (Zestril) 10 mg DAILY24 PO 03/11/21 21:30 04/10/21 21:29 03/11/21 22:51 Fluoxetine HCl (Prozac) 40 mg DAILY24 PO 03/11/21 21:30 04/10/21 21:29 Carbidopa/Levodopa (Sinemet 25/100) 1 each STAT STAT PO 03/11/21 22:35 03/12/21 00:18 DC 03/11/21 22:50 Gabapentin (Neurontin) 400 mg STAT STAT PO 03/11/21 22:35 03/12/21 00:18 DC 03/11/21 22:50 Sodium Chloride 1,000 ml @ 100 mls/hr Q10H IV 03/12/21 06:00 04/11/21 05:59 03/12/21 16:28 Fenofibrate (Tricor) 145 mg DAILY PO 03/12/21 10:38 04/11/21 08:59 Senna (Senokot) 8.6 mg DAILY24 PRN PO CONSTIPATION 03/12/21 17:00 04/11/21 16:59 Docusate Sodium (Colace) 100 mg DAILY24 PRN PO CONSTIPATION 03/12/21 17:00 04/11/21 16:59 Pregabalin (Lyrica) 50 mg BID PO 03/12/21 14:00 04/11/21 13:59 03/12/21 16:31 Course Sepsis Screening Results: Posi: POSITIVE Sepsis Qualifier/Stage: NO DEFINITE RISK Duration or Total Time Spent w: 60 min Vitals & review Data Vital Sign - Last 24 Hours 03/11/21 03/11/21 03/11/21 03/11/21 20:30 21:33 21:43 22:51 Temp 97.6 Pulse 62 69 Resp 18 16 B/P (MAP) 144/78 (100) 144/78 Pulse Ox 95 94 O2 Delivery Room Air Room Air Nasal Cannula O2 Flow Rate 0.00 FiO2 03/12/21 03/12/21 03/12/21 03/12/21 00:02 04:26 08:00 08:18 Temp 97.4 97.7 Pulse 60 60 68 Resp 16 16 18 B/P (MAP) 137/66 (89) 146/76 (99) Pulse Ox 100 98 90 O2 Delivery Nasal Can[place] Nasal [place] Nasal Cannula Room Air O2 Flow Rate 2.00 2.00 0.00 03/12/21 03/12/21 03/12/21 03/12/21 08:21 09:57 11:17 16:09 Temp 97.7 97.5 98.0 Pulse 59 58 65 Resp 18 20 20 B/P (MAP) 124/83 (97) 124/83 157/88 (111) 173/91 (118) Pulse Ox 94 98 95 O2 Flow Rate 943.00 Intake and Output 03/12/21 06:59 Intake Total 1400 ml Output Total 1500 ml Balance -100 ml Laboratory Tests Test 03/11/21 14:15 03/11/21 16:10 03/11/21 22:18 03/12/21 06:16 White Blood Count 9.7 10^3/uL 7.4 10^3/uL Red Blood Count 4.99 10^6/uL 4.50 10^6/uL Hemoglobin 15.3 g/dL 13.6 g/dL Hematocrit 48.0 % 43.2 % Mean Corpuscular Volume 96.2 fL 96.0 fL Mean Corpuscular Hemoglobin 30.7 pg 30.2 pg Mean Corpuscular Hemoglobin Concent 31.9 g/dL 31.5 g/dL Red Cell Distribution Width 14.4 % 14.2 % Platelet Count 179 10^3/uL 141 10^3/uL Mean Platelet Volume 11.1 fL 10.8 fL Neutrophils (%) (Auto) 57.4 % 56.8 % Lymphocytes (%) (Auto) 33.2 % 27.5 % Monocytes (%) (Auto) 8.0 % 12.6 % Neutrophils # (Auto) 5.6 10^3/uL 4.2 10^3/uL Lymphocytes # (Auto) 3.23 10^3/uL1 2.03 10^3/uL1 Monocytes # (Auto) 0.8 10^3/uL 0.9 10^3/uL Absolute Immature Granulocyte (auto 0.03 10^3 u/L 0.03 10^3 u/L Absolute Eosinophils (auto) 0.1 10^3/uL 0.2 10^3/uL Immature Granulocytes % 0.30 % 0.40 % Eosinophils % 1.1 % 2.2 % Basophils % 0.3 % 0.5 % Basophils # 0.0 10^3/uL 0.0 10^3/uL Prothrombin Time 10.9 SEC Prothrombin Time INR (Non-Therap) 1.0 Activated Partial Thromboplast Time 20.0 SEC Sodium Level 142 mmol/L 143 mmol/L Potassium Level 4.7 mmol/L 4.4 mmol/L Chloride Level 106.0 mmol/L 109.0 mmol/L Carbon Dioxide Level 26.5 mmol/L 25.1 mmol/L Anion Gap 14.2 13.3 Blood Urea Nitrogen 37 mg/dL 34 mg/dL Creatinine 2.38 mg/dL 1.54 mg/dL Estimated GFR () 31.8 52.6 Est GFR (CKD-EPI)(Non-Afr [place]) 26.3 43.5 BUN/Creatinine Ratio 15.0 22.0 Glucose Level 121 mg/dL 108 mg/dL Calcium Level 8.8 mg/dL 7.8 mg/dL Total Bilirubin 0.6 mg/dL 0.3 mg/dL Aspartate Amino Transf (AST/SGOT) 27 U/L 18 U/L Alanine Aminotransferase (ALT/SGPT) 12 U/L 8 U/L Alkaline Phosphatase 87 U/L 76 U/L Total Creatine Kinase 89 U/L Creatine Kinase MB 2.2 ng/mL Troponin I < 0.02 ng/mL Total Protein 6.8 g/dL 5.6 g/dL Albumin 3.0 g/dL 2.4 g/dL Globulin 3.8 3.2 Albumin/Globulin Ratio 0.789 0.750 Urine Collection Type UNKNOWN Urine Color DARK YELLOW Urine Appearance HAZY Urine Bilirubin NEGATIVE Urine Ketones NEGATIVE Urine Specific [place] 1.025 Urine pH 5.0 Urine Protein 100 mg/dL Urine Urobilinogen 0.2 E.U./dL Urine Nitrate NEGATIVE Urine Leukocyte Esterase SMALL Urine Glucose (Auto)(UA) NEGATIVE Urine Blood TRACE-LYSED Urine RBC TNTC RBC/HPF Urine WBC TNTC WBC/HPF Urine Squamous Epithelial Cells FEW #/HPF Urine Bacteria FEW Bedside Glucose 134 Test 03/12/21 07:30 03/12/21 11:29 03/12/21 13:30 03/12/21 16:36 Bedside Glucose 84 84 73 Urine Collection Type RANDOM Urine Color ORANGE Urine Appearance CLOUDY Urine Bilirubin NEGATIVE Urine Ketones NEGATIVE Urine Specific [place] 1.025 Urine pH 5.0 Urine Protein 100 mg/dL Urine Urobilinogen 1.0 E.U./dL Urine Nitrate POSITIVE Urine Leukocyte Esterase LARGE Urine Glucose (Auto)(UA) 100 Urine Blood MODERATE Urine RBC 2-5 RBC/HPF Urine WBC TNTC WBC/HPF Urine Squamous Epithelial Cells FEW #/HPF Urine Bacteria MANY Current Medications Medications (Trade) Dose Ordered Sig/Folra PRN Reason Start Time Stop Time Status Last Admin Acetaminophen (Tylenol) 650 mg Q4HR PRN PAIN 1 - 3 03/11/21 21:30 04/10/21 21:29 Allopurinol (Zyloprim) 300 mg DAILY 03/12/21 09:00 04/11/21 08:59 Alprazolam (Xanax) 0.25 mg DAILY24 03/11/21 21:30 04/10/21 21:29 03/11/21 22:51 Aspirin (Aspirin) 81 mg DAILY 03/12/21 09:00 04/11/21 08:59 03/12/21 09:53 Carbidopa/Levodopa (Sinemet 25/100) 1 each QID 03/12/21 09:00 04/11/21 08:59 03/12/21 16:37 Ceftriaxone Sodium 1000 mg/ Sodium Chloride 100 ml @ 100 mls/hr Q24HRS 03/11/21 17:30 03/16/21 17:28 03/12/21 16:37 Dextrose (Dextrose 50%-Water Syringe) 25 ml STAT PRN HYPOGLYCEMIA 03/11/21 17:30 04/10/21 17:29 Docusate Sodium (Colace) 100 mg DAILY24 PRN CONSTIPATION 03/12/21 17:00 04/11/21 16:59 Fenofibrate (Tricor) 145 mg DAILY 03/12/21 10:38 04/11/21 08:59 Flavoxate HCl (Urispas) 100 mg TID 03/11/21 21:00 04/10/21 20:59 03/12/21 16:31 Fluoxetine HCl (Prozac) 40 mg DAILY24 03/11/21 21:30 04/10/21 21:29 Gabapentin (Neurontin) 400 mg QID 03/12/21 09:00 04/11/21 08:59 03/12/21 16:37 Lisinopril (Zestril) 10 mg DAILY24 03/11/21 21:30 04/10/21 21:29 03/11/21 22:51 Losartan Potassium (Cozaar) 50 mg BID 03/11/21 21:00 04/10/21 20:59 03/12/21 09:57 Phenazopyridine HCl (Pyridium) 200 mg TID 03/11/21 21:00 04/10/21 20:59 03/12/21 15:00 Pregabalin (Lyrica) 50 mg BID 03/12/21 14:00 04/11/21 13:59 03/12/21 16:31 Primidone (Mysoline) 250 mg TID 03/11/21 21:00 04/10/21 20:59 03/12/21 16:31 Senna (Senokot) 8.6 mg DAILY24 PRN CONSTIPATION 03/12/21 17:00 04/11/21 16:59 Sodium Chloride 1,000 ml @ 100 mls/hr Q10H 03/12/21 06:00 04/11/21 05:59 03/12/21 16:28 Tamsulosin HCl (Flomax) 0.4 mg DAILY24 03/11/21 17:30 04/10/21 17:29 03/12/21 16:38 LEVEL 1 SEPSIS INFECTION CRITE: ABX Therapy, Urinary Tract Infection LEVEL 2-SIRS (LIST ALL THAT AP: None/Not assessed Cardiovascular Evidence: Not Assessed or None Hematologic Evidence: None/Not assessed Hepatic Evidence: None/Not assessed Metabolic Evidence: None/Not assessed Neurological Evidence: None/Not assessed Respiratory Evidence: None/Not assessed Renal Evidence: Creatinine Lvl>2.0 O2 Sat by Pulse Oximetry: 95 Oxygen Flow Rate: 943.00 Assessment/Plan Assessment/Plan Assessment/Plan Assessment UTI Syncopal Episode -likely due to orthostatic hypotension YADIRA Parkinson's T2DM w/ diabetic neuropathy Hypertension Plan Admit to obs Rocephin daily Resume home meds Diabetic diet SSI Ur and Blood culture pending DNR fall precautions Their care for neuropathic pain Problems: (1) Orthostatic hypotension ICD Code: I95.1 - Orthostatic hypotension SNOMED: 24236153 (2) UTI (urinary tract infection) Status: Acute ICD Code: N39.0 - Urinary tract infection, site not specified SNOMED: 70043375 (3) Type 2 diabetes mellitus ICD Code: E11.9 - Type 2 diabetes mellitus without complications SNOMED: 57387120 (4) Hypertension ICD Code: I10 - Essential (primary) hypertension SNOMED: 71589954 (5) Parkinsons disease ICD Code: G20 - Parkinson's disease SNOMED: 64453894 Plan Assessment UTI Syncopal Episode -likely due to orthostatic hypotension YADIRA Parkinson's T2DM Hypertension Plan Switch to inpatient RCN daily Resume home meds Diabetic diet SSI Ur and Blood culture pending DNR fall precautions Problem Qualifiers (1) UTI (urinary tract infection): Urinary tract infection type: site unspecified Hematuria presence: with hematuria Qualified Codes: N39.0 - Urinary tract infection, site not specified; R31.9 - Hematuria, unspecified KIM MENDIETA MD Mar 12, 2021 19:43
[2021-03-12 19:46] VITALS: BP 147/78
[2021-03-12] MEDS: XANAX PO SCH (20:27)
[2021-03-12] MEDS: PROZAC PO SCH (20:27)
[2021-03-12] MEDS: ZESTRIL PO SCH (20:28)
[2021-03-13 00:28] VITALS: BP 137/67
[2021-03-13] MEDS: HNS 1000ML 1,000 ML IV SCH ×2 (02:23→13:13)
[2021-03-13 04:16] VITALS: BP 129/56
--- NOTE | 2021-03-13 05:52 | PRM.PN ---
Subjective Subjective Subjective Patient seen and examined this morning with no acute events overnight. Patient reports some burning pain in his feet Patient History: FH: cancer Hypertension No known health problems 19 CHILD 19 CHILD 19 CHILD Unknown G8 SISTER G8 SISTER VTE VTE Risk Total Score: 5 VTE Risk Score VTE Risk: Score 0-1 = Low Risk (Aggressive mobilization; early ambulation; no VTE prophylaxis required) Score 2: Moderate Risk (Intermittent/Pneumatic Compression Device OR Lovenox/Heparin/Coumadin) Score 3-4: High Risk (Intermittent/Pneumatic Compression Device AND Lovenox/Heparin/Coumadin) Score > or =5: Highest Risk (Intermittent/Pneumatic Compression Device AND Lovenox/Heparin/Coumadin) Review of Systems Constitutional: No: Fever, Chills Eyes: No: Pain, Vision change, Conjunctivae inflammation ENT: No: Ear pain, Ear discharge Respiratory: No: Cough Cardiovascular: No: Chest Pain, Palpitations, Orthopnea Gastrointestinal: No: Nausea, Vomiting Genitourinary: No Dysuria, No Frequency; Other (cloudy urine) Musculoskeletal: No: other, neck pain Skin: No: Rash, Lesions Neurological: Other (syncopy) Allergies: Coded Allergies: No Known Allergies (Unverified , 08/05/14) Scheduled Allopurinol (Allopurinol), 300 MG PO DAILY Alprazolam (Xanax), 0.25 MG PO DAILY24, (Reported) Ampicillin Trihydrate (Ampicillin Trihydrate), 1 CAP PO QID Aspirin (Children's Aspirin), 81 MG PO DAILY, (Reported) Carbidopa/Levodopa (Carbidopa-Levodopa 25-100 Tab), 1 EACH PO QID, (Reported) Fluoxetine Hcl (Fluoxetine Hcl), 40 MG PO DAILY24, (Reported) Lisinopril (Lisinopril), 10 MG PO DAILY24, (Reported) Multivitamin (Multi Vitamin Daily), 1 EACH PO DAILY24, (Reported) Pregabalin (Lyrica), 50 MG PO BID Primidone (Mysoline), 250 MG PO TID Psyllium Husk (Fiber), 0.52 GM PO DAILY24, (Reported) Sennosides/Docusate Sodium (Stool Softener Tablet), 1 EACH PO DAILY24, (Reported) Solifenacin Succinate (Vesicare), 10 MG PO ACL, (Reported) Tamsulosin Hcl (Tamsulosin Hcl), 0.4 MG PO DAILY24, (Reported) Scheduled PRN Acetaminophen (Tylenol), 650 MG PO PRN PRN for pain, (Reported) Discontinued Medications Allopurinol (Allopurinol), 300 MG PO DAILY, (Reported) Discontinued Reason: No Longer Taking Ciprofloxacin Hcl (Ciprofloxacin Hcl), 1 TAB PO BID, (Reported) Discontinued Reason: No Longer Taking Ciprofloxacin Hcl (Cipro), 500 MG PO BID Discontinued Reason: No Longer Taking Cyanocobalamin (Vitamin B-12) (B-12), 1,000 MCG PO DAILY24, (Reported) Discontinued Reason: No Longer Taking Fenofibrate (Fenofibrate), 160 MG PO DAILY, (Reported) Discontinued Reason: No Longer Taking Flavoxate Hcl (Flavoxate Hcl), 100 MG PO TID Discontinued Reason: No Longer Taking Fluticasone Propionate (Flonase Allergy Relief), 9.9 ML NS DAILY, (Reported) Discontinued Reason: No Longer Taking Gabapentin (Gabapentin), 1 CAP PO TID, (Reported) Discontinued Reason: No Longer Taking Gabapentin (Gabapentin), 400 MG PO QID, (Reported) Discontinued Reason: Discontinue Losartan Potassium (Losartan Potassium), 50 MG PO BID, (Reported) Discontinued Reason: No Longer Taking Magnesium Oxide (Magnesium), 250 MG PO DAILY24, (Reported) Discontinued Reason: No Longer Taking Metformin Hcl (Metformin Hcl), 1 TAB PO DAILY24, (Reported) Discontinued Reason: No Longer Taking Naproxen Sodium (Aleve), 2 TAB PO BID, (Reported) Discontinued Reason: No Longer Taking Leland-3 Fatty Acids (Fish Oil), 1,400 MG PO DAILY24, (Reported) Discontinued Reason: No Longer Taking Phenazopyridine HCl (Pyridium), 200 MG PO TID Discontinued Reason: No Longer Taking Potassium Chloride (Potassium Chloride), 1 CAP PO DAILY, (Reported) Discontinued Reason: No Longer Taking Pravastatin Sodium (Pravastatin Sodium), 80 MG PO HS, (Reported) Discontinued Reason: No Longer Taking Primidone (Primidone), 250 MG PO TID, (Reported) Discontinued Reason: No Longer Taking Topiramate (Topiramate), 50 MG PO TID, (Reported) Discontinued Reason: Discontinue Objective Vitals and I/O Vital Sign - Last 24 Hours 03/12/21 03/12/21 03/12/21/8/21 08:00 08:18 08:21 09:57 Temp 97.7 Pulse 68 59 Resp 18 18 B/P (MAP) 124/83 (97) 124/83 Pulse Ox 90 94 O2 Delivery Nasal Cannula Room Air O2 Flow Rate 0.00 943.00 03/12/21 03/12/21 03/12/21 03/12/21 11:17 16:09 19:40 19:46 Temp 97.5 98.0 97.6 Pulse 58 65 65 Resp 20 20 20 B/P (MAP) 157/88 (111) 173/91 (118) 147/78 (101) Pulse Ox 98 95 96 O2 Delivery Room Air Room Air 03/12/21 03/12/21 03/12/21 03/13/21 19:50 20:27 20:28 00:28 Temp 97.4 Pulse 67 64 Resp 14 14 B/P (MAP) 147/78 147/78 137/67 (90) Pulse Ox 91 92 O2 Delivery Nasal Cannula Room Air O2 Flow Rate 2.00 FiO2 28 03/13/21 04:16 Temp 97.9 Pulse 64 Resp 16 B/P (MAP) 129/56 (80) Pulse Ox 93 O2 Delivery Room Air Intake and Output 03/13/21 07:00 Intake Total 2985 ml Output Total 2500 ml Balance 485 ml General: Alert, Oriented X3, Cooperative HEENT: Atraumatic, PERRLA Lungs: Clear to auscultation, Normal air movement Heart: Regular rate, Normal S1, Normal S2 Abdomen: Normal bowel sounds, Soft Extremities: No clubbing, No cyanosis, No edema Neuro: Normal speech Psych/Mental Status: Mood NL Other physical findings Patient with orthostatic still positive All Results(Lab/Rad) Laboratory Tests Test 03/11/21 22:18 03/12/21 06:16 03/12/21 07:30 03/12/21 11:29 Bedside Glucose 134 84 84 White Blood Count 7.4 10^3/uL Red Blood Count 4.50 10^6/uL Hemoglobin 13.6 g/dL Hematocrit 43.2 % Mean Corpuscular Volume 96.0 fL Mean Corpuscular Hemoglobin 30.2 pg Mean Corpuscular Hemoglobin Concent 31.5 g/dL Red Cell Distribution Width 14.2 % Platelet Count 141 10^3/uL Mean Platelet Volume 10.8 fL Neutrophils (%) (Auto) 56.8 % Lymphocytes (%) (Auto) 27.5 % Monocytes (%) (Auto) 12.6 % Neutrophils # (Auto) 4.2 10^3/uL Lymphocytes # (Auto) 2.03 10^3/uL1 Monocytes # (Auto) 0.9 10^3/uL Absolute Immature Granulocyte (auto 0.03 10^3 u/L Absolute Eosinophils (auto) 0.2 10^3/uL Immature Granulocytes % 0.40 % Eosinophils % 2.2 % Basophils % 0.5 % Basophils # 0.0 10^3/uL Sodium Level 143 mmol/L Potassium Level 4.4 mmol/L Chloride Level 109.0 mmol/L Carbon Dioxide Level 25.1 mmol/L Anion Gap 13.3 Blood Urea Nitrogen 34 mg/dL Creatinine 1.54 mg/dL Estimated GFR () 52.6 Est GFR (CKD-EPI)(Non-Afr Ivorian) 43.5 BUN/Creatinine Ratio 22.0 Glucose Level 108 mg/dL Calcium Level 7.8 mg/dL Total Bilirubin 0.3 mg/dL Aspartate Amino Transf (AST/SGOT) 18 U/L Alanine Aminotransferase (ALT/SGPT) 8 U/L Alkaline Phosphatase 76 U/L Total Protein 5.6 g/dL Albumin 2.4 g/dL Globulin 3.2 Albumin/Globulin Ratio 0.750 Test 03/12/21 13:30 03/12/21 16:36 Urine Collection Type RANDOM Urine Color ORANGE Urine Appearance CLOUDY Urine Bilirubin NEGATIVE Urine Ketones NEGATIVE Urine Specific [place] 1.025 Urine pH 5.0 Urine Protein 100 mg/dL Urine Urobilinogen 1.0 E.U./dL Urine Nitrate POSITIVE Urine Leukocyte Esterase LARGE Urine Glucose (Auto)(UA) 100 Urine Blood MODERATE Urine RBC 2-5 RBC/HPF Urine WBC TNTC WBC/HPF Urine Squamous Epithelial Cells FEW #/HPF Urine Bacteria MANY Bedside Glucose 73 Current Medications Medications (Trade) Dose Ordered Sig/Flora Route PRN Reason Start Time Stop Time Status Last Admin Dose Admin Sodium Chloride 1,000 ml @ 1,200 mls/hr Q50M STAT IV 03/11/21 14:31 03/11/21 15:20 DC 03/11/21 14:47 Sodium Chloride 1,000 ml @ ud STK-MED ONCE .ROUTE 03/11/21 14:34 03/11/21 14:34 DC Sodium Chloride 1,000 ml @ 100 mls/hr Q10H STAT IV 03/11/21 16:35 03/12/21 02:34 DC 03/11/21 17:20 Ceftriaxone Sodium 1000 mg/ Sodium Chloride 100 ml @ 100 mls/hr STAT STAT IV 03/11/21 16:35 03/11/21 17:34 DC 03/11/21 17:20 Sodium Chloride 100 ml @ ud STK-MED ONCE IV 03/11/21 17:10 03/11/21 17:10 DC Ceftriaxone Sodium (Rocephin) 1,000 mg STK-MED ONCE .ROUTE 03/11/21 17:10 03/11/21 17:10 DC Sodium Chloride 1,000 ml @ ud STK-MED ONCE .ROUTE 03/11/21 17:10 03/11/21 17:11 DC Acetaminophen (Tylenol) 325 mg Q4H PRN PO PAIN 1 - 3 03/11/21 17:30 03/12/21 10:45 DC Dextrose (Dextrose 50%-Water Syringe) 25 ml STAT PRN IV HYPOGLYCEMIA 03/11/21 17:30 04/10/21 17:29 Ceftriaxone Sodium 1000 mg/ Sodium Chloride 100 ml @ 100 mls/hr Q24HRS IV 03/11/21 17:30 03/16/21 17:28 03/12/21 16:37 Allopurinol (Zyloprim) 300 mg DAILY PO 03/12/21 09:00 04/11/21 08:59 Aspirin (Aspirin) 81 mg DAILY PO 03/12/21 09:00 04/11/21 08:59 03/12/21 09:53 Fenofibrate (Triglide) 160 mg DAILY PO 03/12/21 09:00 03/12/21 10:38 DC Flavoxate HCl (Urispas) 100 mg TID PO 03/11/21 21:00 04/10/21 20:59 03/12/21 16:31 Gabapentin (Neurontin) 100 mg TID PO 03/11/21 21:00 03/12/21 10:42 DC 03/12/21 09:54 Losartan Potassium (Cozaar) 50 mg BID PO 03/11/21 21:00 04/10/21 20:59 03/12/21 09:57 Phenazopyridine HCl (Pyridium) 200 mg TID PO 03/11/21 21:00 04/10/21 20:59 03/12/21 15:00 Primidone (Mysoline) 250 mg TID PO 03/11/21 21:00 04/10/21 20:59 03/12/21 16:31 Senna/Docusate Sodium (Sonia-Colace Tablet) 1 each DAILY24 PO 03/11/21 17:30 03/12/21 10:53 DC Tamsulosin HCl (Flomax) 0.4 mg DAILY24 PO 03/11/21 17:30 04/10/21 17:29 03/12/21 16:38 Acetaminophen (Tylenol) 650 mg Q4HR PRN PO PAIN 1 - 3 03/11/21 21:30 04/10/21 21:29 Alprazolam (Xanax) 0.25 mg DAILY24 PO 03/11/21 21:30 04/10/21 21:29 03/11/21 22:51 Carbidopa/Levodopa (Sinemet 25/100) 1 each QID PO 03/12/21 09:00 04/11/21 08:59 03/12/21 16:37 Gabapentin (Neurontin) 400 mg QID PO 03/12/21 09:00 04/11/21 08:59 03/12/21 16:37 Lisinopril (Zestril) 10 mg DAILY24 PO 03/11/21 21:30 04/10/21 21:29 03/11/21 22:51 Fluoxetine HCl (Prozac) 40 mg DAILY24 PO 03/11/21 21:30 04/10/21 21:29 Carbidopa/Levodopa (Sinemet 25/100) 1 each STAT STAT PO 03/11/21 22:35 03/12/21 00:18 DC 03/11/21 22:50 Gabapentin (Neurontin) 400 mg STAT STAT PO 03/11/21 22:35 03/12/21 00:18 DC 03/11/21 22:50 Sodium Chloride 1,000 ml @ 100 mls/hr Q10H IV 03/12/21 06:00 04/11/21 05:59 03/12/21 16:28 Fenofibrate (Tricor) 145 mg DAILY PO 03/12/21 10:38 04/11/21 08:59 Senna (Senokot) 8.6 mg DAILY24 PRN PO CONSTIPATION 03/12/21 17:00 04/11/21 16:59 Docusate Sodium (Colace) 100 mg DAILY24 PRN PO CONSTIPATION 03/12/21 17:00 04/11/21 16:59 Pregabalin (Lyrica) 50 mg BID PO 03/12/21 14:00 04/11/21 13:59 03/12/21 16:31 Course Sepsis Screening Results: Posi: POSITIVE Sepsis Qualifier/Stage: NO DEFINITE RISK Duration or Total Time Spent w: 60 min Vitals & review Data Vital Sign - Last 24 Hours 03/11/21 03/11/21 03/11/21 03/11/21 20:30 21:33 21:43 22:51 Temp 97.6 Pulse 62 69 Resp 18 16 B/P (MAP) 144/78 (100) 144/78 Pulse Ox 95 94 O2 Delivery Room Air Room Air Nasal Cannula O2 Flow Rate 0.00 FiO2 03/12/21 03/12/21 03/12/21 03/12/21 00:02 04:26 08:00 08:18 Temp 97.4 97.7 Pulse 60 60 68 Resp 16 16 18 B/P (MAP) 137/66 (89) 146/76 (99) Pulse Ox 100 98 90 O2 Delivery Nasal Canula Nasal Canula Nasal Cannula Room Air O2 Flow Rate 2.00 2.00 0.00 03/12/21 03/12/21 03/12/21 03/12/21 08:21 09:57 11:17 16:09 Temp 97.7 97.5 98.0 Pulse 59 58 65 Resp 18 20 20 B/P (MAP) 124/83 (97) 124/83 157/88 (111) 173/91 (118) Pulse Ox 94 98 95 O2 Flow Rate 943.00 Intake and Output 03/12/21 06:59 Intake Total 1400 ml Output Total 1500 ml Balance -100 ml Laboratory Tests Test 03/11/21 14:15 03/11/21 16:10 03/11/21 22:18 03/12/21 06:16 White Blood Count 9.7 10^3/uL 7.4 10^3/uL Red Blood Count 4.99 10^6/uL 4.50 10^6/uL Hemoglobin 15.3 g/dL 13.6 g/dL Hematocrit 48.0 % 43.2 % Mean Corpuscular Volume 96.2 fL 96.0 fL Mean Corpuscular Hemoglobin 30.7 pg 30.2 pg Mean Corpuscular Hemoglobin Concent 31.9 g/dL 31.5 g/dL Red Cell Distribution Width 14.4 % 14.2 % Platelet Count 179 10^3/uL 141 10^3/uL Mean Platelet Volume 11.1 fL 10.8 fL Neutrophils (%) (Auto) 57.4 % 56.8 % Lymphocytes (%) (Auto) 33.2 % 27.5 % Monocytes (%) (Auto) 8.0 % 12.6 % Neutrophils # (Auto) 5.6 10^3/uL 4.2 10^3/uL Lymphocytes # (Auto) 3.23 10^3/uL1 2.03 10^3/uL1 Monocytes # (Auto) 0.8 10^3/uL 0.9 10^3/uL Absolute Immature Granulocyte (auto 0.03 10^3 u/L 0.03 10^3 u/L Absolute Eosinophils (auto) 0.1 10^3/uL 0.2 10^3/uL Immature Granulocytes % 0.30 % 0.40 % Eosinophils % 1.1 % 2.2 % Basophils % 0.3 % 0.5 % Basophils # 0.0 10^3/uL 0.0 10^3/uL Prothrombin Time 10.9 SEC Prothrombin Time INR (Non-Therap) 1.0 Activated Partial Thromboplast Time 20.0 SEC Sodium Level 142 mmol/L 143 mmol/L Potassium Level 4.7 mmol/L 4.4 mmol/L Chloride Level 106.0 mmol/L 109.0 mmol/L Carbon Dioxide Level 26.5 mmol/L 25.1 mmol/L Anion Gap 14.2 13.3 Blood Urea Nitrogen 37 mg/dL 34 mg/dL Creatinine 2.38 mg/dL 1.54 mg/dL Estimated GFR () 31.8 52.6 Est GFR (CKD-EPI)(Non-Afr Ivorian) 26.3 43.5 BUN/Creatinine Ratio 15.0 22.0 Glucose Level 121 mg/dL 108 mg/dL Calcium Level 8.8 mg/dL 7.8 mg/dL Total Bilirubin 0.6 mg/dL 0.3 mg/dL Aspartate Amino Transf (AST/SGOT) 27 U/L 18 U/L Alanine Aminotransferase (ALT/SGPT) 12 U/L 8 U/L Alkaline Phosphatase 87 U/L 76 U/L Total Creatine Kinase 89 U/L Creatine Kinase MB 2.2 ng/mL Troponin I < 0.02 ng/mL Total Protein 6.8 g/dL 5.6 g/dL Albumin 3.0 g/dL 2.4 g/dL Globulin 3.8 3.2 Albumin/Globulin Ratio 0.789 0.750 Urine Collection Type UNKNOWN Urine Color DARK YELLOW Urine Appearance HAZY Urine Bilirubin NEGATIVE Urine Ketones NEGATIVE Urine Specific [place] 1.025 Urine pH 5.0 Urine Protein 100 mg/dL Urine Urobilinogen 0.2 E.U./dL Urine Nitrate NEGATIVE Urine Leukocyte Esterase SMALL Urine Glucose (Auto)(UA) NEGATIVE Urine Blood TRACE-LYSED Urine RBC TNTC RBC/HPF Urine WBC TNTC WBC/HPF Urine Squamous Epithelial Cells FEW #/HPF Urine Bacteria FEW Bedside Glucose 134 Test 03/12/21 07:30 03/12/21 11:29 03/12/21 13:30 03/12/21 16:36 Bedside Glucose 84 84 73 Urine Collection Type RANDOM Urine Color ORANGE Urine Appearance CLOUDY Urine Bilirubin NEGATIVE Urine Ketones NEGATIVE Urine Specific [place] 1.025 Urine pH 5.0 Urine Protein 100 mg/dL Urine Urobilinogen 1.0 E.U./dL Urine Nitrate POSITIVE Urine Leukocyte Esterase LARGE Urine Glucose (Auto)(UA) 100 Urine Blood MODERATE Urine RBC 2-5 RBC/HPF Urine WBC TNTC WBC/HPF Urine Squamous Epithelial Cells FEW #/HPF Urine Bacteria MANY Current Medications Medications (Trade) Dose Ordered Sig/Flora PRN Reason Start Time Stop Time Status Last Admin Acetaminophen (Tylenol) 650 mg Q4HR PRN PAIN 1 - 3 03/11/21 21:30 04/10/21 21:29 Allopurinol (Zyloprim) 300 mg DAILY 03/12/21 09:00 04/11/21 08:59 Alprazolam (Xanax) 0.25 mg DAILY24 03/11/21 21:30 04/10/21 21:29 03/11/21 22:51 Aspirin (Aspirin) 81 mg DAILY 03/12/21 09:00 04/11/21 08:59 03/12/21 09:53 Carbidopa/Levodopa (Sinemet 25/100) 1 each QID 03/12/21 09:00 04/11/21 08:59 03/12/21 16:37 Ceftriaxone Sodium 1000 mg/ Sodium Chloride 100 ml @ 100 mls/hr Q24HRS 03/11/21 17:30 03/16/21 17:28 03/12/21 16:37 Dextrose (Dextrose 50%-Water Syringe) 25 ml STAT PRN HYPOGLYCEMIA 03/11/21 17:30 04/10/21 17:29 Docusate Sodium (Colace) 100 mg DAILY24 PRN CONSTIPATION 03/12/21 17:00 04/11/21 16:59 Fenofibrate (Tricor) 145 mg DAILY 03/12/21 10:38 04/11/21 08:59 Flavoxate HCl (Urispas) 100 mg TID 03/11/21 21:00 04/10/21 20:59 03/12/21 16:31 Fluoxetine HCl (Prozac) 40 mg DAILY24 03/11/21 21:30 04/10/21 21:29 Gabapentin (Neurontin) 400 mg QID 03/12/21 09:00 04/11/21 08:59 03/12/21 16:37 Lisinopril (Zestril) 10 mg DAILY24 03/11/21 21:30 04/10/21 21:29 03/11/21 22:51 Losartan Potassium (Cozaar) 50 mg BID 03/11/21 21:00 04/10/21 20:59 03/12/21 09:57 Phenazopyridine HCl (Pyridium) 200 mg TID 03/11/21 21:00 04/10/21 20:59 03/12/21 15:00 Pregabalin (Lyrica) 50 mg BID 03/12/21 14:00 04/11/21 13:59 03/12/21 16:31 Primidone (Mysoline) 250 mg TID 03/11/21 21:00 04/10/21 20:59 03/12/21 16:31 Senna (Senokot) 8.6 mg DAILY24 PRN CONSTIPATION 03/12/21 17:00 04/11/21 16:59 Sodium Chloride 1,000 ml @ 100 mls/hr Q10H 03/12/21 06:00 04/11/21 05:59 03/12/21 16:28 Tamsulosin HCl (Flomax) 0.4 mg DAILY24 03/11/21 17:30 04/10/21 17:29 03/12/21 16:38 LEVEL 1 SEPSIS INFECTION CRITE: ABX Therapy, Urinary Tract Infection LEVEL 2-SIRS (LIST ALL THAT AP: None/Not assessed Cardiovascular Evidence: Not Assessed or None Hematologic Evidence: None/Not assessed Hepatic Evidence: None/Not assessed Metabolic Evidence: None/Not assessed Neurological Evidence: None/Not assessed Respiratory Evidence: None/Not assessed Renal Evidence: Creatinine Lvl>2.0 O2 Sat by Pulse Oximetry: 93 Oxygen Flow Rate: 2.00 Findings Patient with orthostatic still positive Assessment/Plan Assessment/Plan Assessment/Plan Assessment UTI Syncopal Episode -likely due to orthostatic hypotension YADIRA Parkinson's T2DM Hypertension Plan Switch to inpatient [facility] daily Resume home meds Diabetic diet SSI Ur and Blood culture pending DNR fall precautions Plan Assessment UTI Syncopal Episode -likely due to orthostatic hypotension YADIRA Parkinson's T2DM Hypertension Plan Switch to inpatient [facility] daily Resume home meds Diabetic diet SSI Ur and Blood culture pending DNR fall precautions KIM MENDIETA MD Mar 13, 2021 05:52
[2021-03-13 06:43] LABS: BASOPHIL % 0.4 % (0.0-0.2); EOSINOPHIL # 0.2 10^3/uL (0.0-0.2); EOSINOPHIL % 2.3 % (0.0-5.0); LYMPHOCYTES # 1.79 10^3/uL1 (1.0-4.8); LYMPHOCYTES % 26.1 % (24.0-44.0); MEAN CORP HGB 30.9 pg (26-34); MONOCYTES # 0.6 10^3/uL (0.3-0.8); MONOCYTES % 8.9 % (5.0-12.0); NEUTROPHIL # 4.3 10^3/uL (1.8-7.7); NEUTROPHILS % 62.3 % (41.0-85.0); PLATELET COUNT 151 10^3/uL (150-400); RED CELL DISTRIBUTION WIDTH 13.9 % (11.5-14.5)
[2021-03-13 06:53] LABS: CALCIUM 8.2 mg/dL (8.4-10.5); CARBON DIOXIDE 24.6 mmol/L (20.0-32)
[2021-03-13 08:25] VITALS: BP 141/84
--- NOTE | 2021-03-13 08:25 | NUR ---
ORTHOSTATICS LAYING 141/84 SITTING 102/70 STANDING 112/48
[2021-03-13] MEDS ORDERED: THERA PO SCH (09:00)
[2021-03-13] MEDS: PYRIDIUM PO SCH ×2 (09:27→15:04)
[2021-03-13] MEDS: SINEMET 25/100 PO SCH ×2 (09:27→13:12)
[2021-03-13] MEDS: NEURONTIN PO SCH ×2 (09:27→13:12)
[2021-03-13] MEDS: LYRICA PO SCH (09:27)
[2021-03-13] MEDS: URISPAS PO SCH ×2 (09:27→15:04)
[2021-03-13] MEDS: MYSOLINE PO SCH ×2 (09:27→15:04)
[2021-03-13] MEDS: ZYLOPRIM PO SCH (09:27)
[2021-03-13] MEDS: COZAAR PO SCH (09:28)
[2021-03-13] MEDS: ASPIRIN PO SCH (09:28)
--- NOTE | 2021-03-13 11:19 | DIET.OP ---
Nutrition Asmt/Malnutrit 2-17 Actual Date of Review: Mar 13, 2021 Nutritional Screening: Malnutr/Diet Consult (DM ) Diagnosis: UTI Pertinent Medical Hx/Surgical: Parkinson's disease, type 2 diabetes, and hypertension Subjective Information: accuchecks have been 72-94 mg/dl since admission. Pt denies chewing or swallowing issues, denies n/v. Reports constipation, no BM since admission. At home follows a DM diet and checks BG frequently. States BG is usually in the 90's at home. He was aware of appropriate range for BG and states if BG goes below 70 he eats a honey bun. Current Diet Order/Nutrition S: 1800 curly ADA Pertinent Meds Current Medications Medications (Trade) Dose Ordered Sig/Flora PRN Reason Start Time Stop Time Status Last Admin Acetaminophen (Tylenol) 650 mg Q4HR PRN PAIN 1 - 3 03/11/21 21:30 04/10/21 21:29 Allopurinol (Zyloprim) 300 mg DAILY 03/12/21 09:00 04/11/21 08:59 03/13/21 09:27 Alprazolam (Xanax) 0.25 mg DAILY24 03/11/21 21:30 04/10/21 21:29 03/12/21 20:27 Aspirin (Aspirin) 81 mg DAILY 03/12/21 09:00 04/11/21 08:59 03/13/21 09:28 Carbidopa/Levodopa (Sinemet 25/100) 1 each QID 03/12/21 09:00 04/11/21 08:59 03/13/21 09:27 Ceftriaxone Sodium 1000 mg/ Sodium Chloride 100 ml @ 100 mls/hr Q24HRS 03/11/21 17:30 03/16/21 17:28 03/12/21 16:37 Dextrose (Dextrose 50%-Water Syringe) 25 ml STAT PRN HYPOGLYCEMIA 03/11/21 17:30 04/10/21 17:29 Docusate Sodium (Colace) 100 mg DAILY24 PRN CONSTIPATION 03/12/21 17:00 04/11/21 16:59 Fenofibrate (Tricor) 145 mg DAILY 03/12/21 10:38 04/11/21 08:59 03/13/21 09:27 Flavoxate HCl (Urispas) 100 mg TID 03/11/21 21:00 04/10/21 20:59 03/13/21 09:27 Fluoxetine HCl (Prozac) 40 mg DAILY24 03/11/21 21:30 04/10/21 21:29 03/12/21 20:27 Gabapentin (Neurontin) 400 mg QID 03/12/21 09:00 04/11/21 08:59 03/13/21 09:27 Lisinopril (Zestril) 10 mg DAILY24 03/11/21 21:30 04/10/21 21:29 03/12/21 20:28 Losartan Potassium (Cozaar) 50 mg BID 03/11/21 21:00 04/10/21 20:59 03/13/21 09:28 Phenazopyridine HCl (Pyridium) 200 mg TID 03/11/21 21:00 04/10/21 20:59 03/13/21 09:27 Pregabalin (Lyrica) 50 mg BID 03/12/21 14:00 04/11/21 13:59 03/13/21 09:27 Primidone (Mysoline) 250 mg TID 03/11/21 21:00 04/10/21 20:59 03/13/21 09:27 Senna (Senokot) 8.6 mg DAILY24 PRN CONSTIPATION 03/12/21 17:00 04/11/21 16:59 Sodium Chloride 1,000 ml @ 100 mls/hr Q10H 03/12/21 06:00 04/11/21 05:59 03/13/21 02:23 Tamsulosin HCl (Flomax) 0.4 mg DAILY24 03/11/21 17:30 04/10/21 17:29 03/12/21 16:38 Pertinent Labs Laboratory Tests Test 03/11/21 14:15 03/11/21 16:10 03/11/21 22:18 03/12/21 06:16 White Blood Count 9.7 10^3/uL 7.4 10^3/uL Red Blood Count 4.99 10^6/uL 4.50 10^6/uL Hemoglobin 15.3 g/dL 13.6 g/dL Hematocrit 48.0 % 43.2 % Mean Corpuscular Volume 96.2 fL 96.0 fL Mean Corpuscular Hemoglobin 30.7 pg 30.2 pg Mean Corpuscular Hemoglobin Concent 31.9 g/dL 31.5 g/dL Red Cell Distribution Width 14.4 % 14.2 % Platelet Count 179 10^3/uL 141 10^3/uL Mean Platelet Volume 11.1 fL 10.8 fL Neutrophils (%) (Auto) 57.4 % 56.8 % Lymphocytes (%) (Auto) 33.2 % 27.5 % Monocytes (%) (Auto) 8.0 % 12.6 % Neutrophils # (Auto) 5.6 10^3/uL 4.2 10^3/uL Lymphocytes # (Auto) 3.23 10^3/uL1 2.03 10^3/uL1 Monocytes # (Auto) 0.8 10^3/uL 0.9 10^3/uL Absolute Immature Granulocyte (auto 0.03 10^3 u/L 0.03 10^3 u/L Absolute Eosinophils (auto) 0.1 10^3/uL 0.2 10^3/uL Immature Granulocytes % 0.30 % 0.40 % Eosinophils % 1.1 % 2.2 % Basophils % 0.3 % 0.5 % Basophils # 0.0 10^3/uL 0.0 10^3/uL Prothrombin Time 10.9 SEC Prothrombin Time INR (Non-Therap) 1.0 Activated Partial Thromboplast Time 20.0 SEC Sodium Level 142 mmol/L 143 mmol/L Potassium Level 4.7 mmol/L 4.4 mmol/L Chloride Level 106.0 mmol/L 109.0 mmol/L Carbon Dioxide Level 26.5 mmol/L 25.1 mmol/L Anion Gap 14.2 13.3 Blood Urea Nitrogen 37 mg/dL 34 mg/dL Creatinine 2.38 mg/dL 1.54 mg/dL Estimated GFR () 31.8 52.6 Est GFR (CKD-EPI)(Non-Afr Ukrainian) 26.3 43.5 BUN/Creatinine Ratio 15.0 22.0 Glucose Level 121 mg/dL 108 mg/dL Calcium Level 8.8 mg/dL 7.8 mg/dL Total Bilirubin 0.6 mg/dL 0.3 mg/dL Aspartate Amino Transf (AST/SGOT) 27 U/L 18 U/L Alanine Aminotransferase (ALT/SGPT) 12 U/L 8 U/L Alkaline Phosphatase 87 U/L 76 U/L Total Creatine Kinase 89 U/L Creatine Kinase MB 2.2 ng/mL Troponin I < 0.02 ng/mL Total Protein 6.8 g/dL 5.6 g/dL Albumin 3.0 g/dL 2.4 g/dL Globulin 3.8 3.2 Albumin/Globulin Ratio 0.789 0.750 Urine Collection Type UNKNOWN Urine Color DARK YELLOW Urine Appearance HAZY Urine Bilirubin NEGATIVE Urine Ketones NEGATIVE Urine Specific [place] 1.025 Urine pH 5.0 Urine Protein 100 mg/dL Urine Urobilinogen 0.2 E.U./dL Urine Nitrate NEGATIVE Urine Leukocyte Esterase SMALL Urine Glucose (Auto)(UA) NEGATIVE Urine Blood TRACE-LYSED Urine RBC TNTC RBC/HPF Urine WBC TNTC WBC/HPF Urine Squamous Epithelial Cells FEW #/HPF Urine Bacteria FEW Bedside Glucose 134 Test 03/12/21 07:30 03/12/21 11:29 03/12/21 13:30 03/12/21 16:36 Bedside Glucose 84 84 73 Urine Collection Type RANDOM Urine Color ORANGE Urine Appearance CLOUDY Urine Bilirubin NEGATIVE Urine Ketones NEGATIVE Urine Specific [place] 1.025 Urine pH 5.0 Urine Protein 100 mg/dL Urine Urobilinogen 1.0 E.U./dL Urine Nitrate POSITIVE Urine Leukocyte Esterase LARGE Urine Glucose (Auto)(UA) 100 Urine Blood MODERATE Urine RBC 2-5 RBC/HPF Urine WBC TNTC WBC/HPF Urine Squamous Epithelial Cells FEW #/HPF Urine Bacteria MANY Test 03/12/21 20:37 03/13/21 04:57 03/13/21 06:12 03/13/21 08:32 Bedside Glucose 82 72 94 White Blood Count 6.9 10^3/uL Red Blood Count 4.60 10^6/uL Hemoglobin 14.2 g/dL Hematocrit 43.6 % Mean Corpuscular Volume 94.8 fL Mean Corpuscular Hemoglobin 30.9 pg Mean Corpuscular Hemoglobin Concent 32.6 g/dL Red Cell Distribution Width 13.9 % Platelet Count 151 10^3/uL Mean Platelet Volume 11.2 fL Neutrophils (%) (Auto) 62.3 % Lymphocytes (%) (Auto) 26.1 % Monocytes (%) (Auto) 8.9 % Neutrophils # (Auto) 4.3 10^3/uL Lymphocytes # (Auto) 1.79 10^3/uL1 Monocytes # (Auto) 0.6 10^3/uL Absolute Immature Granulocyte (auto 0.02 10^3 u/L Absolute Eosinophils (auto) 0.2 10^3/uL Immature Granulocytes % 0.30 % Eosinophils % 2.3 % Basophils % 0.4 % Basophils # 0.0 10^3/uL Sodium Level 139 mmol/L Potassium Level 4.4 mmol/L Chloride Level 106.0 mmol/L Carbon Dioxide Level 24.6 mmol/L Anion Gap 12.8 Blood Urea Nitrogen 20 mg/dL Creatinine 1.22 mg/dL Estimated GFR () 68.8 Est GFR (CKD-EPI)(Non-Afr Ukrainian) 56.9 BUN/Creatinine Ratio 16.0 Glucose Level 105 mg/dL Calcium Level 8.2 mg/dL Total Bilirubin 0.5 mg/dL Aspartate Amino Transf (AST/SGOT) 15 U/L Alanine Aminotransferase (ALT/SGPT) 10 U/L Alkaline Phosphatase 72 U/L Total Protein 5.5 g/dL Albumin 2.4 g/dL Globulin 3.1 Albumin/Globulin Ratio 0.774 Height (Feet): 6 Height (Inches): 3 Current Weight: 215 %IBW: 110 Recent Weight Change: No Weight Status: Overweight GI Symptoms: Constipation Food Allergies: No Cultural/Ethnic/Confucianist Erika: none Usual Diet at Home: DM diet Skin Integrity/Comment: No Current %PO: Good(75-100%) BEE in Kcals: Use Current Weight Calories/Kcals/Kg: MSJ* 1.1-1.3 Kcals Calculated: 5018-6391 kcal Protein: Use Current Weight Protein g/kg: .8-1 g/kg Protein Calculated: 78-98g Fluid: ml: 4877-7313 ml Nutritional Problem: No Cur. Nutritional Probl Recommendations by RD: Dietary education by RD RD Comments: RD provided DM diet education at bedside 03/13 Expected Outcomes Pt expected to d/c this afternoon. d/c on consistent carb, low Na diet Malnutrtion/Nutrition Risk Edu: No MD Notificiation Needed?: No Kathryn Duval Mar 13, 2021 11:19
--- NOTE | 2021-03-13 12:00 | NUR ---
DISCHARGE PLANNING PATIENT CURRENTLY ON SERVICES FOR [facility]. PATIENT PLANS TO DISCHARGE HOME TO SELF CARE AND RESUMPTION OF SERVICES WITH [facility]. PATIENT CURRENTLY LIVES @[address] AND IND WITH ALL [place]. CM SPOKE WITH [facility] AND PATIENT ON SERVICES FOR DX OF [place]. [facility] REQUEST CM FAX INITIAL CLINICALS. INFORMED PATIENT WOULD DISCHARGE OVER THE WEEKEND. MANI FAXED INITIAL AND CONCURRENT CLINICALS TO [facility]@[phone]. FAX CONFIRMATION CONFIRMED COMPLETE. Addendum: 03/16/21 at 0804 by Yasmin Luna RN,Case Managemen RN CM FAXED CONCURRENT CLINICALS, DC SUMMARY, PATIENT VISIT REPORT, DC ASSESSMENT TO [facility]@[phone]. FAX CONFIRMATION CONFIRMED COMPLETE.
[2021-03-13 12:30] VITALS: BP 171/85
[2021-03-13] MEDS ORDERED: ALLO300T PO (13:17)
[2021-03-13] MEDS ORDERED: PREG50CA PO (13:17)
[2021-03-13] MEDS ORDERED: PRIM250T33 PO (13:17)
--- NOTE | 2021-03-13 13:18 | PRM.DC ---
Discharge Summary Date of Discharge: Mar 13, 2021 Time of Request to Discharge: 18:01 Reason for Visit: UTI, Dehydration Hospital Course Mr. Goldsmith is an 80-year-old man with a past medical history of Parkinson's disease type 2 diabetes and hypertension presenting with several episodes of syncope in the past 10 days. Patient reports having syncopal episodes when getting up too fast and did report also having head trauma from one of his syncopal episodes. After he had a syncopal episode today he was brought into the ER by his family. He denies any nausea vomiting diarrhea fever or chills but family does endorse that he does have cloudy urine. Patient was admitted to Med/Surg and started on Rocephin for UTI treatment and given IV fluids for resuscitation. Urine culture was obtained. Patient continues to have neuro symptoms multiple days since hospitalization on Rocephin. When urine cultures came back it was determined that patient's urinary infection was due to gram-positive bacteria in his antibiotics was switched from Rocephin to ampicillin. Patient was also started on pregabalin for peripheral neuropathy with significant improvement. Patient had persistent orthostatic hypotension hospitalization but it was determined to be secondary to his Parkinson's disease. Patient was aware of his orthostatic and reports that he has had it for many years and has not had to deal with it. Patient was stable and tolerating a regular diet and was discharged home with his family on a 14-day course of amoxicillin To cover UTI and possible prostatitis. Patient is to resume activity as tolerated. Patient was counseled on following up with his PCP and his urologist. Patient had no complaints on ROS on day of discharge. Patient History: FH: cancer Hypertension No known health problems 19 CHILD 19 CHILD 19 CHILD Unknown G8 SISTER G8 SISTER Exam/Vitals Vital Sign - Last 24 Hours 03/12/21 03/12/21 03/12/21 03/12/21 19:40 19:46 19:50 20:27 Temp 97.6 Pulse 65 67 Resp 20 14 B/P (MAP) 147/78 (101) 147/78 Pulse Ox 96 91 O2 Delivery Room Air Room Air Nasal Cannula O2 Flow Rate 2.00 FiO2 28 03/12/21 03/13/21 03/13/21 03/13/21 20:28 00:28 04:16 08:25 Temp 97.4 97.9 97.7 Pulse 64 64 60 Resp 14 16 16 B/P (MAP) 147/78 137/67 (90) 129/56 (80) 141/84 (103) Pulse Ox 92 93 95 O2 Delivery Room Air Room Air Room Air 03/13/21 03/13/21 03/13/21 03/13/21 09:00 09:00 09:28 12:30 Temp 98.2 Pulse 68 64 Resp 18 18 18 B/P (MAP) 141/84 171/85 (113) Pulse Ox 90 90 92 O2 Delivery Room Air Room Air 03/13/21 03/13/21 03/13/21 13:17 16:10 16:10 Temp 98.4 Pulse 80 80 Resp 16 16 B/P (MAP) 127/76 (93) Pulse Ox 94 94 O2 Delivery Room Air Room Air Room Air Intake and Output 03/13/21 07:00 Intake Total 2985 ml Output Total 2500 ml Balance 485 ml General: Alert, Oriented X3, Cooperative HEENT: Atraumatic, PERRLA, EOMI Neck: Supple, No JVD Lungs: Clear to auscultation, Normal air movement Heart: Regular rate, No murmurs Abdomen: Normal bowel sounds, Soft Extremities: No clubbing, No cyanosis Skin: No rashes, No breakdown Neuro: Normal speech, Sensation intact Psych/Mental Status: Mental status NL, Mood NL Results(Labs/Rad) Laboratory Tests Test 03/12/21 20:37 03/13/21 04:57 03/13/21 06:12 03/13/21 08:32 Bedside Glucose 82 72 94 White Blood Count 6.9 10^3/uL Red Blood Count 4.60 10^6/uL Hemoglobin 14.2 g/dL Hematocrit 43.6 % Mean Corpuscular Volume 94.8 fL Mean Corpuscular Hemoglobin 30.9 pg Mean Corpuscular Hemoglobin Concent 32.6 g/dL Red Cell Distribution Width 13.9 % Platelet Count 151 10^3/uL Mean Platelet Volume 11.2 fL Neutrophils (%) (Auto) 62.3 % Lymphocytes (%) (Auto) 26.1 % Monocytes (%) (Auto) 8.9 % Neutrophils # (Auto) 4.3 10^3/uL Lymphocytes # (Auto) 1.79 10^3/uL1 Monocytes # (Auto) 0.6 10^3/uL Absolute Immature Granulocyte (auto 0.02 10^3 u/L Absolute Eosinophils (auto) 0.2 10^3/uL Immature Granulocytes % 0.30 % Eosinophils % 2.3 % Basophils % 0.4 % Basophils # 0.0 10^3/uL Sodium Level 139 mmol/L Potassium Level 4.4 mmol/L Chloride Level 106.0 mmol/L Carbon Dioxide Level 24.6 mmol/L Anion Gap 12.8 Blood Urea Nitrogen 20 mg/dL Creatinine 1.22 mg/dL Estimated GFR () 68.8 Est GFR (CKD-EPI)(Non-Afr Trin[place]adian) 56.9 BUN/Creatinine Ratio 16.0 Glucose Level 105 mg/dL Calcium Level 8.2 mg/dL Total Bilirubin 0.5 mg/dL Aspartate Amino Transf (AST/SGOT) 15 U/L Alanine Aminotransferase (ALT/SGPT) 10 U/L Alkaline Phosphatase 72 U/L Total Protein 5.5 g/dL Albumin 2.4 g/dL Globulin 3.1 Albumin/Globulin Ratio 0.774 Test 03/13/21 12:24 Bedside Glucose 91 Current Medications Medications (Trade) Dose Ordered Sig/Flora Route PRN Reason Start Time Stop Time Status Last Admin Dose Admin Sodium Chloride 1,000 ml @ 1,200 mls/hr Q50M STAT IV 03/11/21 14:31 03/11/21 15:20 DC 03/11/21 14:47 Sodium Chloride 1,000 ml @ ud STK-MED ONCE .ROUTE 03/11/21 14:34 03/11/21 14:34 DC Sodium Chloride 1,000 ml @ 100 mls/hr Q10H STAT IV 03/11/21 16:35 03/12/21 02:34 DC 03/11/21 17:20 Ceftriaxone Sodium 1000 mg/ Sodium Chloride 100 ml @ 100 mls/hr STAT STAT IV 03/11/21 16:35 03/11/21 17:34 DC 03/11/21 17:20 Sodium Chloride 100 ml @ ud STK-MED ONCE IV 03/11/21 17:10 03/11/21 17:10 DC Ceftriaxone Sodium (Rocephin) 1,000 mg STK-MED ONCE .ROUTE 03/11/21 17:10 03/11/21 17:10 DC Sodium Chloride 1,000 ml @ ud STK-MED ONCE .ROUTE 03/11/21 17:10 03/11/21 17:11 DC Acetaminophen (Tylenol) 325 mg Q4H PRN PO PAIN 1 - 3 03/11/21 17:30 03/12/21 10:45 DC Dextrose (Dextrose 50%-Water Syringe) 25 ml STAT PRN IV HYPOGLYCEMIA 03/11/21 17:30 03/13/21 16:49 DC Ceftriaxone Sodium 1000 mg/ Sodium Chloride 100 ml @ 100 mls/hr Q24HRS IV 03/11/21 17:30 03/13/21 16:49 DC 03/12/21 16:37 Allopurinol (Zyloprim) 300 mg DAILY PO 03/12/21 09:00 03/13/21 16:49 DC 03/13/21 09:27 Aspirin (Aspirin) 81 mg DAILY PO 03/12/21 09:00 03/13/21 16:49 DC 03/13/21 09:28 Fenofibrate (Triglide) 160 mg DAILY PO 03/12/21 09:00 03/12/21 10:38 DC Flavoxate HCl (Urispas) 100 mg TID PO 03/11/21 21:00 03/13/21 16:49 DC 03/13/21 15:04 Gabapentin (Neurontin) 100 mg TID PO 03/11/21 21:00 03/12/21 10:42 DC 03/12/21 09:54 Losartan Potassium (Cozaar) 50 mg BID PO 03/11/21 21:00 03/13/21 16:49 DC 03/13/21 09:28 Phenazopyridine HCl (Pyridium) 200 mg TID PO 03/11/21 21:00 03/13/21 16:49 DC 03/13/21 15:04 Primidone (Mysoline) 250 mg TID PO 03/11/21 21:00 03/13/21 16:49 DC 03/13/21 15:04 Senna/Docusate Sodium (Sonia-Colace Tablet) 1 each DAILY24 PO 03/11/21 17:30 03/12/21 10:53 DC Tamsulosin HCl (Flomax) 0.4 mg DAILY24 PO 03/11/21 17:30 03/13/21 16:49 DC 03/12/21 16:38 Acetaminophen (Tylenol) 650 mg Q4HR PRN PO PAIN 1 - 3 03/11/21 21:30 03/13/21 16:49 DC Alprazolam (Xanax) 0.25 mg DAILY24 PO 03/11/21 21:30 03/13/21 16:49 DC 03/12/21 20:27 Carbidopa/Levodopa (Sinemet 25/100) 1 each QID PO 03/12/21 09:00 03/13/21 16:49 DC 03/13/21 13:12 Gabapentin (Neurontin) 400 mg QID PO 03/12/21 09:00 03/13/21 16:49 DC 03/13/21 13:12 Lisinopril (Zestril) 10 mg DAILY24 PO 03/11/21 21:30 03/13/21 16:49 DC 03/12/21 20:28 Fluoxetine HCl (Prozac) 40 mg DAILY24 PO 03/11/21 21:30 03/13/21 16:49 DC 03/12/21 20:27 Carbidopa/Levodopa (Sinemet 25/100) 1 each STAT STAT PO 03/11/21 22:35 03/12/21 00:18 DC 03/11/21 22:50 Gabapentin (Neurontin) 400 mg STAT STAT PO 03/11/21 22:35 03/12/21 00:18 DC 03/11/21 22:50 Sodium Chloride 1,000 ml @ 100 mls/hr Q10H IV 03/12/21 06:00 03/13/21 16:49 DC 03/13/21 13:13 Fenofibrate (Tricor) 145 mg DAILY PO 03/12/21 10:38 03/13/21 16:49 DC 03/13/21 09:27 Senna (Senokot) 8.6 mg DAILY24 PRN PO CONSTIPATION 03/12/21 17:00 03/13/21 16:49 DC Docusate Sodium (Colace) 100 mg DAILY24 PRN PO CONSTIPATION 03/12/21 17:00 03/13/21 16:49 DC Pregabalin (Lyrica) 50 mg BID PO 03/12/21 14:00 03/13/21 16:49 DC 03/13/21 09:27 Scheduled Allopurinol (Allopurinol), 300 MG PO DAILY Alprazolam (Xanax), 0.25 MG PO DAILY24, (Reported) Ampicillin Trihydrate (Ampicillin Trihydrate), 1 CAP PO QID Aspirin (Children's Aspirin), 81 MG PO DAILY, (Reported) Carbidopa/Levodopa (Carbidopa-Levodopa 25-100 Tab), 1 EACH PO QID, (Reported) Fluoxetine Hcl (Fluoxetine Hcl), 40 MG PO DAILY24, (Reported) Lisinopril (Lisinopril), 10 MG PO DAILY24, (Reported) Multivitamin (Multi Vitamin Daily), 1 EACH PO DAILY24, (Reported) Pregabalin (Lyrica), 50 MG PO BID Primidone (Mysoline), 250 MG PO TID Psyllium Husk (Fiber), 0.52 GM PO DAILY24, (Reported) Sennosides/Docusate Sodium (Stool Softener Tablet), 1 EACH PO DAILY24, (Repor rosie) Solifenacin Succinate (Vesicare), 10 MG PO ACL, (Reported) Tamsulosin Hcl (Tamsulosin Hcl), 0.4 MG PO DAILY24, (Reported) Scheduled PRN Acetaminophen (Tylenol), 650 MG PO PRN PRN for pain, (Reported) Discontinued Medications Allopurinol (Allopurinol), 300 MG PO DAILY, (Reported) Discontinued Reason: No Longer Taking Ciprofloxacin Hcl (Ciprofloxacin Hcl), 1 TAB PO BID, (Reported) Discontinued Reason: No Longer Taking Ciprofloxacin Hcl (Cipro), 500 MG PO BID Discontinued Reason: No Longer Taking Cyanocobalamin (Vitamin B-12) (B-12), 1,000 MCG PO DAILY24, (Reported) Discontinued Reason: No Longer Taking Fenofibrate (Fenofibrate), 160 MG PO DAILY, (Reported) Discontinued Reason: No Longer Taking Flavoxate Hcl (Flavoxate Hcl), 100 MG PO TID Discontinued Reason: No Longer Taking Fluticasone Propionate (Flonase Allergy Relief), 9.9 ML NS DAILY, (Reported) Discontinued Reason: No Longer Taking Gabapentin (Gabapentin), 1 CAP PO TID, (Reported) Discontinued Reason: No Longer Taking Gabapentin (Gabapentin), 400 MG PO QID, (Reported) Discontinued Reason: Discontinue Losartan Potassium (Losartan Potassium), 50 MG PO BID, (Reported) Discontinued Reason: No Longer Taking Magnesium Oxide (Magnesium), 250 MG PO DAILY24, (Reported) Discontinued Reason: No Longer Taking Metformin Hcl (Metformin Hcl), 1 TAB PO DAILY24, (Reported) Discontinued Reason: No Longer Taking Naproxen Sodium (Aleve), 2 TAB PO BID, (Reported) Discontinued Reason: No Longer Taking [place]-3 Fatty Acids (Fish Oil), 1,400 MG PO DAILY24, (Reported) Discontinued Reason: No Longer Taking Phenazopyridine HCl (Pyridium), 200 MG PO TID Discontinued Reason: No Longer Taking Potassium Chloride (Potassium Chloride), 1 CAP PO DAILY, (Reported) Discontinued Reason: No Longer Taking Pravastatin Sodium (Pravastatin Sodium), 80 MG PO HS, (Reported) Discontinued Reason: No Longer Taking Primidone (Primidone), 250 MG PO TID, (Reported) Discontinued Reason: No Longer Taking Topiramate (Topiramate), 50 MG PO TID, (Reported) Discontinued Reason: Discontinue Sepsis Evaluation @ Discharge Vital Sign - Last 24 Hours 03/11/21 03/11/21 03/11/21 03/11/21 20:30 21:33 21:43 22:51 Temp 97.6 Pulse 62 69 Resp 18 16 B/P (MAP) 144/78 (100) 144/78 Pulse Ox 95 94 O2 Delivery Room Air Room Air Nasal Cannula O2 Flow Rate 0.00 FiO2 21 03/12/21 03/12/21 03/12/21 03/12/21 00:02 04:26 08:00 08:18 Temp 97.4 97.7 Pulse 60 60 68 Resp 16 16 18 B/P (MAP) 137/66 (89) 146/76 (99) Pulse Ox 100 98 90 O2 Delivery Nasal Canula Nasal Canula Nasal Cannula Room Air O2 Flow Rate 2.00 2.00 0.00 03/12/21 03/12/21 03/12/21 03/12/21 08:21 09:57 11:17 16:09 Temp 97.7 97.5 98.0 Pulse 59 58 65 Resp 18 20 20 B/P (MAP) 124/83 (97) 124/83 157/88 (111) 173/91 (118) Pulse Ox 94 98 95 O2 Flow Rate 943.00 Intake and Output 03/12/21 06:59 Intake Total 1400 ml Output Total 1500 ml Balance -100 ml Laboratory Tests Test 03/11/21 14:15 03/11/21 16:10 03/11/21 22:18 03/12/21 06:16 White Blood Count 9.7 10^3/uL 7.4 10^3/uL Red Blood Count 4.99 10^6/uL 4.50 10^6/uL Hemoglobin 15.3 g/dL 13.6 g/dL Hematocrit 48.0 % 43.2 % Mean Corpuscular Volume 96.2 fL 96.0 fL Mean Corpuscular Hemoglobin 30.7 pg 30.2 pg Mean Corpuscular Hemoglobin Concent 31.9 g/dL 31.5 g/dL Red Cell Distribution Width 14.4 % 14.2 % Platelet Count 179 10^3/uL 141 10^3/uL Mean Platelet Volume 11.1 fL 10.8 fL Neutrophils (%) (Auto) 57.4 % 56.8 % Lymphocytes (%) (Auto) 33.2 % 27.5 % Monocytes (%) (Auto) 8.0 % 12.6 % Neutrophils # (Auto) 5.6 10^3/uL 4.2 10^3/uL Lymphocytes # (Auto) 3.23 10^3/uL1 2.03 10^3/uL1 Monocytes # (Auto) 0.8 10^3/uL 0.9 10^3/uL Absolute Immature Granulocyte (auto 0.03 10^3 u/L 0.03 10^3 u/L Absolute Eosinophils (auto) 0.1 10^3/uL 0.2 10^3/uL Immature Granulocytes % 0.30 % 0.40 % Eosinophils % 1.1 % 2.2 % Basophils % 0.3 % 0.5 % Basophils # 0.0 10^3/uL 0.0 10^3/uL Prothrombin Time 10.9 SEC Prothrombin Time INR (Non-Therap) 1.0 Activated Partial Thromboplast Time 20.0 SEC Sodium Level 142 mmol/L 143 mmol/L Potassium Level 4.7 mmol/L 4.4 mmol/L Chloride Level 106.0 mmol/L 109.0 mmol/L Carbon Dioxide Level 26.5 mmol/L 25.1 mmol/L Anion Gap 14.2 13.3 Blood Urea Nitrogen 37 mg/dL 34 mg/dL Creatinine 2.38 mg/dL 1.54 mg/dL Estimated GFR () 31.8 52.6 Est GFR (CKD-EPI)(Non-Afr Trin[place]adian) 26.3 43.5 BUN/Creatinine Ratio 15.0 22.0 Glucose Level 121 mg/dL 108 mg/dL Calcium Level 8.8 mg/dL 7.8 mg/dL Total Bilirubin 0.6 mg/dL 0.3 mg/dL Aspartate Amino Transf (AST/SGOT) 27 U/L 18 U/L Alanine Aminotransferase (ALT/SGPT) 12 U/L 8 U/L Alkaline Phosphatase 87 U/L 76 U/L Total Creatine Kinase 89 U/L Creatine Kinase MB 2.2 ng/mL Troponin I < 0.02 ng/mL Total Protein 6.8 g/dL 5.6 g/dL Albumin 3.0 g/dL 2.4 g/dL Globulin 3.8 3.2 Albumin/Globulin Ratio 0.789 0.750 Urine Collection Type UNKNOWN Urine Color DARK YELLOW Urine Appearance HAZY Urine Bilirubin NEGATIVE Urine Ketones NEGATIVE Urine Specific [place] 1.025 Urine pH 5.0 Urine Protein 100 mg/dL Urine Urobilinogen 0.2 E.U./dL Urine Nitrate NEGATIVE Urine Leukocyte Esterase SMALL Urine Glucose (Auto)(UA) NEGATIVE Urine Blood TRACE-LYSED Urine RBC TNTC RBC/HPF Urine WBC TNTC WBC/HPF Urine Squamous Epithelial Cells FEW #/HPF Urine Bacteria FEW Bedside Glucose 134 Test 03/12/21 07:30 03/12/21 11:29 03/12/21 13:30 03/12/21 16:36 Bedside Glucose 84 84 73 Urine Collection Type RANDOM Urine Color ORANGE Urine Appearance CLOUDY Urine Bilirubin NEGATIVE Urine Ketones NEGATIVE Urine Specific [place] 1.025 Urine pH 5.0 Urine Protein 100 mg/dL Urine Urobilinogen 1.0 E.U./dL Urine Nitrate POSITIVE Urine Leukocyte Esterase LARGE Urine Glucose (Auto)(UA) 100 Urine Blood MODERATE Urine RBC 2-5 RBC/HPF Urine WBC TNTC WBC/HPF Urine Squamous Epithelial Cells FEW #/HPF Urine Bacteria MANY Current Medications Medications (Trade) Dose Ordered Sig/Flora PRN Reason Start Time Stop Time Status Last Admin Acetaminophen (Tylenol) 650 mg Q4HR PRN PAIN 1 - 3 03/11/21 21:30 04/10/21 21:29 Allopurinol (Zyloprim) 300 mg DAILY 03/12/21 09:00 04/11/21 08:59 Alprazolam (Xanax) 0.25 mg DAILY24 03/11/21 21:30 04/10/21 21:29 03/11/21 22:51 Aspirin (Aspirin) 81 mg DAILY 03/12/21 09:00 04/11/21 08:59 03/12/21 09:53 Carbidopa/Levodopa (Sinemet 25/100) 1 each QID 03/12/21 09:00 04/11/21 08:59 03/12/21 16:37 Ceftriaxone Sodium 1000 mg/ Sodium Chloride 100 ml @ 100 mls/hr Q24HRS 03/11/21 17:30 03/16/21 17:28 03/12/21 16:37 Dextrose (Dextrose 50%-Water Syringe) 25 ml STAT PRN HYPOGLYCEMIA 03/11/21 17:30 04/10/21 17:29 Docusate Sodium (Colace) 100 mg DAILY24 PRN CONSTIPATION 03/12/21 17:00 04/11/21 16:59 Fenofibrate (Tricor) 145 mg DAILY 03/12/21 10:38 04/11/21 08:59 Flavoxate HCl (Urispas) 100 mg TID 03/11/21 21:00 04/10/21 20:59 03/12/21 16:31 Fluoxetine HCl (Prozac) 40 mg DAILY24 03/11/21 21:30 04/10/21 21:29 Gabapentin (Neurontin) 400 mg QID 03/12/21 09:00 04/11/21 08:59 03/12/21 16:37 Lisinopril (Zestril) 10 mg DAILY24 03/11/21 21:30 04/10/21 21:29 03/11/21 22:51 Losartan Potassium (Cozaar) 50 mg BID 03/11/21 21:00 04/10/21 20:59 03/12/21 09:57 Phenazopyridine HCl (Pyridium) 200 mg TID 03/11/21 21:00 04/10/21 20:59 03/12/21 15:00 Pregabalin (Lyrica) 50 mg BID 03/12/21 14:00 04/11/21 13:59 03/12/21 16:31 Primidone (Mysoline) 250 mg TID 03/11/21 21:00 04/10/21 20:59 03/12/21 16:31 Senna (Senokot) 8.6 mg DAILY24 PRN CONSTIPATION 03/12/21 17:00 04/11/21 16:59 Sodium Chloride 1,000 ml @ 100 mls/hr Q10H 03/12/21 06:00 04/11/21 05:59 03/12/21 16:28 Tamsulosin HCl (Flomax) 0.4 mg DAILY24 03/11/21 17:30 04/10/21 17:29 03/12/21 16:38 Course Sepsis Screening Results: Posi: POSITIVE Sepsis Qualifier/Stage: NO DEFINITE RISK Duration or Total Time Spent w: 60 min Vitals & review Data Vital Sign - Last 24 Hours 03/11/21 03/11/21 03/11/21 03/11/21 20:30 21:33 21:43 22:51 Temp 97.6 Pulse 62 69 Resp 18 16 B/P (MAP) 144/78 (100) 144/78 Pulse Ox 95 94 O2 Delivery Room Air Room Air Nasal Cannula O2 Flow Rate 0.00 FiO2 21 03/12/21 03/12/21 03/12/21 03/12/21 00:02 04:26 08:00 08:18 Temp 97.4 97.7 Pulse 60 60 68 Resp 16 16 18 B/P (MAP) 137/66 (89) 146/76 (99) Pulse Ox 100 98 90 O2 Delivery Nasal Canula Nasal Canula Nasal Cannula Room Air O2 Flow Rate 2.00 2.00 0.00 03/12/21 03/12/21 03/12/21 03/12/21 08:21 09:57 11:17 16:09 Temp 97.7 97.5 98.0 Pulse 59 58 65 Resp 18 20 20 B/P (MAP) 124/83 (97) 124/83 157/88 (111) 173/91 (118) Pulse Ox 94 98 95 O2 Flow Rate 943.00 Intake and Output 03/12/21 06:59 Intake Total 1400 ml Output Total 1500 ml Balance -100 ml Laboratory Tests Test 03/11/21 14:15 03/11/21 16:10 03/11/21 22:18 03/12/21 06:16 White Blood Count 9.7 10^3/uL 7.4 10^3/uL Red Blood Count 4.99 10^6/uL 4.50 10^6/uL Hemoglobin 15.3 g/dL 13.6 g/dL Hematocrit 48.0 % 43.2 % Mean Corpuscular Volume 96.2 fL 96.0 fL Mean Corpuscular Hemoglobin 30.7 pg 30.2 pg Mean Corpuscular Hemoglobin Concent 31.9 g/dL 31.5 g/dL Red Cell Distribution Width 14.4 % 14.2 % Platelet Count 179 10^3/uL 141 10^3/uL Mean Platelet Volume 11.1 fL 10.8 fL Neutrophils (%) (Auto) 57.4 % 56.8 % Lymphocytes (%) (Auto) 33.2 % 27.5 % Monocytes (%) (Auto) 8.0 % 12.6 % Neutrophils # (Auto) 5.6 10^3/uL 4.2 10^3/uL Lymphocytes # (Auto) 3.23 10^3/uL1 2.03 10^3/uL1 Monocytes # (Auto) 0.8 10^3/uL 0.9 10^3/uL Absolute Immature Granulocyte (auto 0.03 10^3 u/L 0.03 10^3 u/L Absolute Eosinophils (auto) 0.1 10^3/uL 0.2 10^3/uL Immature Granulocytes % 0.30 % 0.40 % Eosinophils % 1.1 % 2.2 % Basophils % 0.3 % 0.5 % Basophils # 0.0 10^3/uL 0.0 10^3/uL Prothrombin Time 10.9 SEC Prothrombin Time INR (Non-Therap) 1.0 Activated Partial Thromboplast Time 20.0 SEC Sodium Level 142 mmol/L 143 mmol/L Potassium Level 4.7 mmol/L 4.4 mmol/L Chloride Level 106.0 mmol/L 109.0 mmol/L Carbon Dioxide Level 26.5 mmol/L 25.1 mmol/L Anion Gap 14.2 13.3 Blood Urea Nitrogen 37 mg/dL 34 mg/dL Creatinine 2.38 mg/dL 1.54 mg/dL Estimated GFR () 31.8 52.6 Est GFR (CKD-EPI)(Non-Afr Trin[place]) 26.3 43.5 BUN/Creatinine Ratio 15.0 22.0 Glucose Level 121 mg/dL 108 mg/dL Calcium Level 8.8 mg/dL 7.8 mg/dL Total Bilirubin 0.6 mg/dL 0.3 mg/dL Aspartate Amino Transf (AST/SGOT) 27 U/L 18 U/L Alanine Aminotransferase (ALT/SGPT) 12 U/L 8 U/L Alkaline Phosphatase 87 U/L 76 U/L Total Creatine Kinase 89 U/L Creatine Kinase MB 2.2 ng/mL Troponin I < 0.02 ng/mL Total Protein 6.8 g/dL 5.6 g/dL Albumin 3.0 g/dL 2.4 g/dL Globulin 3.8 3.2 Albumin/Globulin Ratio 0.789 0.750 Urine Collection Type UNKNOWN Urine Color DARK YELLOW Urine Appearance HAZY Urine Bilirubin NEGATIVE Urine Ketones NEGATIVE Urine Specific [place] 1.025 Urine pH 5.0 Urine Protein 100 mg/dL Urine Urobilinogen 0.2 E.U./dL Urine Nitrate NEGATIVE Urine Leukocyte Esterase SMALL Urine Glucose (Auto)(UA) NEGATIVE Urine Blood TRACE-LYSED Urine RBC TNTC RBC/HPF Urine WBC TNTC WBC/HPF Urine Squamous Epithelial Cells FEW #/HPF Urine Bacteria FEW Bedside Glucose 134 Test 03/12/21 07:30 03/12/21 11:29 03/12/21 13:30 03/12/21 16:36 Bedside Glucose 84 84 73 Urine Collection Type RANDOM Urine Color ORANGE Urine Appearance CLOUDY Urine Bilirubin NEGATIVE Urine Ketones NEGATIVE Urine Specific [place] 1.025 Urine pH 5.0 Urine Protein 100 mg/dL Urine Urobilinogen 1.0 E.U./dL Urine Nitrate POSITIVE Urine Leukocyte Esterase LARGE Urine Glucose (Auto)(UA) 100 Urine Blood MODERATE Urine RBC 2-5 RBC/HPF Urine WBC TNTC WBC/HPF Urine Squamous Epithelial Cells FEW #/HPF Urine Bacteria MANY Current Medications Medications (Trade) Dose Ordered Sig/Flora PRN Reason Start Time Stop Time Status Last Admin Acetaminophen (Tylenol) 650 mg Q4HR PRN PAIN 1 - 3 03/11/21 21:30 04/10/21 21:29 Allopurinol (Zyloprim) 300 mg DAILY 03/12/21 09:00 04/11/21 08:59 Alprazolam (Xanax) 0.25 mg DAILY24 03/11/21 21:30 04/10/21 21:29 03/11/21 22:51 Aspirin (Aspirin) 81 mg DAILY 03/12/21 09:00 04/11/21 08:59 03/12/21 09:53 Carbidopa/Levodopa (Sinemet 25/100) 1 each QID 03/12/21 09:00 04/11/21 08:59 03/12/21 16:37 Ceftriaxone Sodium 1000 mg/ Sodium Chloride 100 ml @ 100 mls/hr Q24HRS 03/11/21 17:30 03/16/21 17:28 03/12/21 16:37 Dextrose (Dextrose 50%-Water Syringe) 25 ml STAT PRN HYPOGLYCEMIA 03/11/21 17:30 04/10/21 17:29 Docusate Sodium (Colace) 100 mg DAILY24 PRN CONSTIPATION 03/12/21 17:00 04/11/21 16:59 Fenofibrate (Tricor) 145 mg DAILY 03/12/21 10:38 04/11/21 08:59 Flavoxate HCl (Urispas) 100 mg TID 03/11/21 21:00 04/10/21 20:59 03/12/21 16:31 Fluoxetine HCl (Prozac) 40 mg DAILY24 03/11/21 21:30 04/10/21 21:29 Gabapentin (Neurontin) 400 mg QID 03/12/21 09:00 04/11/21 08:59 03/12/21 16:37 Lisinopril (Zestril) 10 mg DAILY24 03/11/21 21:30 04/10/21 21:29 03/11/21 22:51 Losartan Potassium (Cozaar) 50 mg BID 03/11/21 21:00 04/10/21 20:59 03/12/21 09:57 Phenazopyridine HCl (Pyridium) 200 mg TID 03/11/21 21:00 04/10/21 20:59 03/12/21 15:00 Pregabalin (Lyrica) 50 mg BID 03/12/21 14:00 04/11/21 13:59 03/12/21 16:31 Primidone (Mysoline) 250 mg TID 03/11/21 21:00 04/10/21 20:59 03/12/21 16:31 Senna (Senokot) 8.6 mg DAILY24 PRN CONSTIPATION 03/12/21 17:00 04/11/21 16:59 Sodium Chloride 1,000 ml @ 100 mls/hr Q10H 03/12/21 06:00 04/11/21 05:59 03/12/21 16:28 Tamsulosin HCl (Flomax) 0.4 mg DAILY24 03/11/21 17:30 04/10/21 17:29 03/12/21 16:38 LEVEL 1 SEPSIS INFECTION CRITE: ABX Therapy, Urinary Tract Infection LEVEL 2-SIRS (LIST ALL THAT AP: None/Not assessed Cardiovascular Evidence: Not Assessed or None Hematologic Evidence: None/Not assessed Hepatic Evidence: None/Not assessed Metabolic Evidence: None/Not assessed Neurological Evidence: None/Not assessed Respiratory Evidence: None/Not assessed Renal Evidence: Creatinine Lvl>2.0 O2 Sat by Pulse Oximetry: 90 Oxygen Flow Rate: 2.00 Findings Patient with orthostatic still positive Plan Problems: (1) UTI (urinary tract infection) Status: Acute ICD Code: N39.0 - Urinary tract infection, site not specified SNOMED: 36240581 (2) Parkinsons disease ICD Code: G20 - Parkinson's disease SNOMED: 70702140 (3) Hypertension ICD Code: I10 - Essential (primary) hypertension SNOMED: 44985323 (4) Type 2 diabetes mellitus ICD Code: E11.9 - Type 2 diabetes mellitus without complications SNOMED: 24110727 (5) Orthostatic hypotension ICD Code: I95.1 - Orthostatic hypotension SNOMED: 76836285 Discharge Disposition: Stable Problem Qualifiers (1) UTI (urinary tract infection): Urinary tract infection type: site unspecified Hematuria presence: with hematuria Qualified Codes: N39.0 - Urinary tract infection, site not specified; R31.9 - Hematuria, unspecified KIM MENDIETA MD Mar 13, 2021 13:18
[2021-03-13] MEDS ORDERED: AMPI500C2 PO (13:28)
--- NOTE | 2021-03-13 14:19 | NUR ---
MARTE MARTE CATHETER DC'D BY THIS NURSE, PT HANDLED WELL. PT EDUCATED ON NEED TO URINATE WITHIN 8 HRS OF REMOVAL, PT VERBALIZED UNDERSTANDING.
--- NOTE | 2021-03-13 15:45 | NUR ---
VOID PT VOIDED AFTER REMOVAL OF MARTE.
[2021-03-13 16:10] VITALS: BP 127/76
--- NOTE | 2021-03-13 16:10 | NUR ---
DISCHARGE DISCHARGE INSTRUCTIONS W/ EDUCATIONAL HANDOUTS, NEW RX, AND WHEN TO SEEK FURTHER MEDICAL ATTENTION REVIEWED W/ PT, PT VERBALIZED UNDERSTANDING. IV DC'D, CATHETER TIP INTACT, NO REDNESS OR SWELLING NOTED AT SITE. PT TOLERATED WELL. PT WHEELED OFF OF UNIT BY THIS NURSE TO PRIVATE AUTO ACCOMPANIED BY PT'S DAUGHTER. NO S/S OF ACUTE DISTRESS NOTED. CARE OF PT RELINQUISHED AT THIS TIME.
== END 2021-03-13 16:10 | disposition home health service (06) | DRG 312 ==
LOC: ER 14:03 → OBSVTOIN 16:18 → UNDOADMOB 16:18 → MS 16:18
PROVIDERS: ADMIT Internal Medicine; ATTEND Internal Medicine
DX: I95.1 Orthostatic hypotension (principal); N39.0 Urinary tract infection, site not specified; N17.9 Acute kidney failure, unspecified; E11.22 Type 2 diabetes mellitus with diabetic chronic kidney disease; E11.40 Type 2 diabetes mellitus with diabetic neuropathy, unspecified; E86.0 Dehydration; G20 Parkinson's disease; I12.9 Hypertensive chronic kidney disease with stage 1 through stage 4 chronic kidney disease, or unspecified chronic kidney disease; N18.9 Chronic kidney disease, unspecified; N41.9 Inflammatory disease of prostate, unspecified; Z66 Do not resuscitate; Z79.899 Other long term (current) drug therapy
CPT/HCPCS: 36415; 70450; 71045; 80053; 81001; 82550; 82553; 82948; 84484; 85025; 85610; 85730; 87077; 87086; 87186; 93005; 99285; G0378; J0696; J7030; C9399

== ENCOUNTER 2021-04-07 17:53 | Emergency (ER) | payer MEDICARE ==
[~2021-04-07 17:53] MED LIST changes: +ACET325T12 PO; +ALPR0.25 PO; +AMPI500C2 PO; +CARB1TAB22 PO; +FLUO40CA2 PO; +GABA400C10 PO; +LISI10TA20 PO; +MULT-632 PO; +PREG50CA PO; +PRIM250T33 PO; +SOLI10TA2 PO
== END 2021-04-07 18:30 | disposition home or self-care (01) ==
LOC: ER 17:53
DX: R42 Dizziness and giddiness (principal); Z53.21 Procedure and treatment not carried out due to patient leaving prior to being seen by health care provider

== ENCOUNTER → 2021-04-30 | Outpatient (CLI) | payer MEDICARE ==
--- NOTE | 2021-04-30 20:14 | DIREP ---
PROCEDURE:XRAY TIB & FIB 2 VW-LT COMPARISON:None. INDICATIONS:PAIN IN LEFT FOOT FINDINGS: Two views of the left tibia and fibula. The medial and lateral malleolus are not completely included within the field of view on the radiographs of the tibia fibula. The left ankle was imaged separately. No fracture or dislocation identified. No radiopaque foreign body. CONCLUSION: No fracture of the left tibia or fibula, as above. Dictated by: Rosalva Gaitan MD on 04/30/2021 at 08:11 PM
--- NOTE | 2021-04-30 20:17 | DIREP ---
PROCEDURE:XRAY ANKLE MIN 3VWS-LT COMPARISON:None. INDICATIONS:PAIN IN LEFT FOOT FINDINGS: Three views of the left ankle. No fracture or dislocation identified. The ankle mortise is symmetric and the syndesmosis is not widened. No radiopaque foreign body. CONCLUSION: Left ankle, unremarkable. Dictated by: Rosalva Gaitan MD on 04/30/2021 at 08:12 PM
--- NOTE | 2021-04-30 20:22 | DIREP ---
PROCEDURE:XRAY FOOT MIN 3 VWS-LT COMPARISON:None. INDICATIONS:PAIN IN LEFT FOOT FINDINGS: Three views of the left foot. Moderate joint space narrowing involving interphalangeal joint great toe. Mild joint space narrowing involving the 1st metatarsophalangeal joint. Possible nondisplaced avulsion fracture at the base of the left 5th metatarsal versus prominent nutrient foramen. No fracture or dislocation identified. No radiopaque foreign body. CONCLUSION: Possible nondisplaced avulsion fracture at the base of the left 5th metatarsal versus prominent nutrient foramen. Dictated by: Rosalva Gaitan MD on 04/30/2021 at 08:16 PM
== END | disposition home or self-care (01) ==
LOC: RAD 16:54
PROVIDERS: ATTEND Internal Medicine
DX: M79.672 Pain in left foot (principal)
CPT/HCPCS: 73590-LT; 73610-LT; 73630-LT

== ENCOUNTER → 2021-05-12 | Outpatient (CLI) | payer MEDICARE ==
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
== END | disposition home or self-care (01) ==
LOC: RAD 09:53
PROVIDERS: ATTEND Internal Medicine
DX: M79.669 Pain in unspecified lower leg (principal)
CPT/HCPCS: 93922; 93925

== ENCOUNTER 2022-04-29 15:04 | Emergency (ER) | payer MEDICARE ==
[~2022-04-29] VITALS: Ht 188 cm; Wt 97.5 kg
[~2022-04-29 15:04] MED LIST changes: -FLUC100T4 PO; +FLUC100T6 PO
--- NOTE | 2022-04-29 17:09 | NUR ---
ARRIVAL PT ARRIVED AMBULATORY TO ED 6 WITH C/O HAVING AN INSECT BITE ON HIS LEFT FOOT FOR A COUPLE OF DAYS. VITALS TAKEN AND NOTIFIED.
[2022-04-29 17:18] VITALS: BP 135/88
--- NOTE | 2022-04-29 18:00 | ER.PDOC ---
General Chief Complaint: SWELLING ON LEFT FOOT Stated Complaint: SWELLING ON LEFT FOOT Time seen by MD: 17:56 Source: patient Exam Limitations: no limitations History of Present Illness Initial Comments Small swelling on top of her left foot for about 4 to 5 days. This happened after patient fell. He denies hitting his head and no loss of consciousness. Recent Injury: Yes Where: home Severity: mild Allergies: Coded Allergies: No Known Allergies (Unverified , 08/05/14) Home Meds Active Scripts Ampicillin Trihydrate (AMPICILLIN TRIHYDRATE) 500 Mg Capsule, 1 CAP PO QID for 7 Days, #14 CAP Prov:KIM MENDIETA MD 03/13/21 Allopurinol (ALLOPURINOL) 300 Mg Tablet, 300 MG PO DAILY for 15 Days, TAB Prov:KIM MENDIETA MD 03/13/21 Primidone (MYSOLINE) 250 Mg Tablet, 250 MG PO TID for 45 Days, TAB Prov:KIM MENDIETA MD 03/13/21 Pregabalin (LYRICA) 50 Mg Capsule, 50 MG PO BID for 15 Days, #30 CAPSULE Prov:KIM MENDIETA MD 03/13/21 Reported Medications Acetaminophen (TYLENOL) 325 Mg Tablet, 650 MG PO PRN PRN for pain, TAB 03/11/21 Alprazolam (XANAX) 0.25 Mg Tablet, 0.25 MG PO DAILY24, TAB 03/11/21 Lisinopril (LISINOPRIL) 10 Mg Tablet, 10 MG PO DAILY24, TAB 03/11/21 Multivitamin (Multi Vitamin Daily) 1 Each Tablet, 1 EACH PO DAILY24, TAB 03/11/21 Solifenacin Succinate (VESICARE) 10 Mg Tablet, 10 MG PO ACL, TAB 03/11/21 Fluoxetine Hcl (FLUOXETINE HCL) 40 Mg Capsule, 40 MG PO DAILY24, CAPSULE 03/11/21 Carbidopa/Levodopa (CARBIDOPA-LEVODOPA 25-100 TAB) 1 Each Tablet, 1 EACH PO QID, TAB 03/11/21 Tamsulosin Hcl (TAMSULOSIN HCL) 0.4 Mg Cap.er.24h, 0.4 MG PO DAILY24 02/07/18 Psyllium Husk (FIBER) 0.52 Gm Capsule, 0.52 GM PO DAILY24, CAPSULE 02/02/18 Sennosides/Docusate Sodium (STOOL SOFTENER TABLET) 1 Each Tablet, 1 EACH PO DAILY24, TABLET 02/02/18 Aspirin (Children's Aspirin) 81 Mg Tab.chew, 81 MG PO DAILY, TAB.CHEW 08/05/14 Past Medical History Medical History: diabetes, parkinson Surgical History: no surgical history Family History Significant Family History: no pertinent family hx Social History Smoking: non-smoker Alcohol Use: occassionally Drug Use: none Review of Systems Constitutional: no symptoms reported EENTM: no symptoms reported Respiratory: no symptoms reported Cardiovascular: no symptoms reported Gastrointestinal: no symptoms reported Musculoskeletal: see HPI Skin: see HPI All Other Systems: Reviewed and Negative Physical Exam General Appearance: Alert, No Apparent Distress Lower Extremity: swelling (Small blood blister on top of left foot. No redness or erythema. There is a scalp over it.) Joint Exam: joints nml, nml ROM, nml gait/weight bearing Vascular: no vascular compromise, pulses full/equal Neuro/Psych: sensation nml, motor nml, oriented x3, CN's nml as tested, mood/affect nml Skin: color nml, warm/dry, no rash Back/Neck: nml inspection EENT: eyes inspection nml, ENT inspection nml, pharynx nml Respiratory: no resp distress, breath sounds nml CVS: reg rate & rhythm, heart sounds nml Abdomen: non-tender, no organomegaly, no bruit/mass Results/Orders Results/Orders Vital Signs Date Time Temp Pulse Resp B/P (MAP) Pulse Ox O2 Delivery O2 Flow Rate FiO2 04/29/22 17:18 98.7 66 18 135/88 (104) 95 Room Air* 0 21 04/29/22 17:18 98.7 66 18 04/29/22 17:18 98.7 66 18 95 Progress Progress I took of the scalp and expressed out dark clots. Wound cleaned, Neosporin and dressing applied. ER DEPART Departure Time of Disposition: 17:59 Disposition: 01 HOME / SELF CARE / HOMELESS Impression: Primary Impression: Hematoma of left foot Condition: Improved Referrals: ERIC ESTEVEZ MD (PCP) PRIMARY CARE PROVIDER Additional Instructions: Keflex Clean wound daily with soap and water and apply Neosporin and a dressing Follow-up with your PCP next week Return to ED if worsening or concerns Duration or Time Spent with Pa: 10 min MARTHA CORNELL MD Apr 29, 2022 18:00
[2022-04-29 18:12] VITALS: BP 135/88
== END 2022-04-29 18:12 | disposition home or self-care (01) ==
LOC: ER 15:04
DX: S90.32XA Contusion of left foot, initial encounter (principal); E11.9 Type 2 diabetes mellitus without complications; F10.20 Alcohol dependence, uncomplicated; G20 Parkinson's disease; W57.XXXA Bitten or stung by nonvenomous insect and other nonvenomous arthropods, initial encounter; Y93.89 Activity, other specified; Y92.009 Unspecified place in unspecified non-institutional (private) residence as the place of occurrence of the external cause; Y99.8 Other external cause status
CPT/HCPCS: 10140; 99284

== ENCOUNTER → 2022-07-19 | Outpatient (CLI) | payer MEDICARE ==
[~2022-07-19] MED LIST changes: -CARB1TAB22 PO; +CARB1TAB35 PO
== END | disposition home or self-care (01) ==
LOC: NPLAB 15:41
PROVIDERS: ATTEND Internal Medicine
DX: R30.0 Dysuria (principal); E86.0 Dehydration
CPT/HCPCS: 87086